=== PATIENT | female | born 1980 | race Hispanic/Latino ===

== ENCOUNTER 2016-12-24 07:40 | Outpatient (CLI) | payer MEDICAID ==
[2016-12-24] MEDS ORDERED: DOBUTamine 100 MG in D5W 92 ML IV SCH (09:00)
[2016-12-24 13:22] VITALS: BP 128/66
== END 2016-12-24 07:41 | disposition home or self-care (01) ==
LOC: CARD 07:40
PROVIDERS: ATTEND Internal Medicine
DX: R07.2 Precordial pain (principal)
CPT/HCPCS: 93017; 93320; 93325; 93350; J1250

== ENCOUNTER 2018-12-27 15:22 | Emergency (ER) | payer MEDICAID, SELFPAY | END 2018-12-27 18:55 | disposition left against medical advice (07) | LOC: ED 15:22 ==

== ENCOUNTER 2020-06-07 22:10 | Emergency (ER) | payer SELFPAY ==
[2020-06-08] MEDS ORDERED: ONDANSETRON 4 MG/2 ML INJ IM ONE (02:08)
[2020-06-08] MEDS ORDERED: fentaNYL 100 MCG/2 ML INJ IM ONE (02:08)
--- NOTE | 2020-06-08 02:14 | Emergency Department Report ---
HPI - General Chief Complaint: Extremity Injury, Lower Time Seen by Provider: 06/08/20 02:00 - HPI HPI: Room 45 The patient is a 39-year-old female present with a chief complaint of body pain. Patient states she awakened this morning with a burning pain in her lower back bilateral thighs and sides of her neck. Patient denies any preceding trauma. P atient states she is uncertain if she developed a fever. Patient states she did toss and turn while sleeping last night but does not recall sleeping in any awkward positions. Patient denies any previous episodes of the same. The patient gives her pain a score of 8/10 ED Past Medical Hx - Past Medical History Previous Medical History?: Yes Hx Arthritis: Yes (SHOULDER) Hx Headaches / Migraines: Yes (MIGRAINES) Hx Kidney Stones: Yes Hx Psychiatric Treatment: Yes (SOCIAL ANXIETY) Hx Asthma: Yes (mild, currently asymptomatic, albuterol PRN) Hx COPD: (denies) - Surgical History Past Surgical History?: Yes Hx Cholecystectomy: Yes Additional Surgical History: C section x2. LEFT THUMB SURGERY. KIDNEY STONE REMOVAL - Family History Family history: no significant - Social History Smoking Status: Current Every Day Smoker (1/3 pack/day) Substance Use Type: None (Denies illicit drug use) - Medications Home Medications: Home Medications Medication Instructions Recorded Confirmed Last Taken Type Cyclobenzaprine [Flexeril] 10 mg PO TID PRN #10 tablet 06/08/20 Unknown Rx HYDROcodone/APAP 5-325 [[place] 1 each PO Q6HR PRN #10 tablet 06/08/20 Unknown Rx 5/325] Ibuprofen [Motrin 800 MG tab] 800 mg PO Q8HR PRN #20 tablet 06/08/20 Unknown Rx ED Review of Systems ROS: Stated complaint: NECK,LOWER BACK,THIGH PAIN Other details as noted in HPI Constitutional: no symptoms reported Respiratory: no symptoms reported Endocrine: no symptoms reported Genitourinary: denies: dysuria Physical Exam - Physical Exam Vital Signs: Vital Signs 06/07/20 23:24 Temperature 99.6 F Pulse Rate 119 H Respiratory 18 Rate Blood Pressure 108/67 O2 Sat by Pulse 100 Oximetry Vital Signs 06/07/20 06/08/20 23:24 05:12 Temperature 99.6 F 99.4 F Pulse Rate 119 H 94 H Respiratory 18 16 Rate Blood Pressure 108/67 Blood Pressure 103/69 [Left] O2 Sat by Pulse 100 100 Oximetry Physical Exam: GENERAL: The patient is well-developed well-nourished female lying on stretcher appearing to be in mild discomfort. [] HEENT: Normocephalic. Atraumatic. Extraocular motions are intact. Patient has moist mucous membranes. NECK: Supple. No meningitic signs are noted. Trachea midline CHEST/LUNGS: Clear to auscultation. There is no respiratory distress noted. HEART/CARDIOVASCULAR: Regular. There is no tachycardia. There is no gallop rub or murmur. ABDOMEN: Abdomen is soft, nontender. Patient has normal bowel sounds. There is no abdominal distention. SKIN: There is no rash. There is no edema. There is no diaphoresis. NEURO: The patient is awake, alert, and oriented. The patient is cooperative. The patient has no focal neurologic deficits. The patient has normal speech MUSCULOSKELETAL: There is no evidence of acute injury. ED Course Vital Signs 06/07/20 23:24 Temperature 99.6 F Pulse Rate 119 H Respiratory 18 Rate Blood Pressure 108/67 O2 Sat by Pulse 100 Oximetry ED Medical Decision Making - Lab Data Result diagrams: 06/08/20 02:18 06/08/20 02:18 Laboratory Tests 06/08/20 06/08/20 06/08/20 02:18 02:18 02:18 WBC 4.8 RBC 4.08 Hgb 12.2 Hct 36.8 MCV 90 MCH 30 MCHC 33 RDW 13.4 Plt Count 172 Lymph % (Auto) 9.4 L [place] % (Auto) 10.0 H Eos % (Auto) 0.3 Baso % (Auto) 0.6 Lymph # 0.4 L [place] # 0.5 Eos # 0.0 Baso # 0.0 Seg Neutrophils % 79.7 H Seg Neutrophils # 3.8 Sodium 137 Potassium 3.8 Chloride 104.2 Carbon Dioxide 19 L Anion Gap 18 BUN 6 L Creatinine 0.9 Estimated GFR > 60 BUN/Creatinine Ratio 7 Glucose 86 Calcium 8.4 Magnesium 2.00 Total Creatine Kinase 54 HCG, Qual Negative Urine Color Urine Turbidity Urine pH Ur Specific [place] Urine Protein Urine Glucose (UA) Urine Ketones Urine Blood Urine Nitrite Urine Bilirubin Urine Urobilinogen Ur Leukocyte Esterase Urine WBC (Auto) Urine RBC (Auto) U Epithel Cells (Auto) Calcium Oxalate Crystal Urine Mucus 06/08/20 04:24 WBC RBC Hgb Hct MCV MCH MCHC RDW Plt Count Lymph % (Auto) [place] % (Auto) Eos % (Auto) Baso % (Auto) Lymph # [place] # Eos # Baso # Seg Neutrophils % Seg Neutrophils # Sodium Potassium Chloride Carbon Dioxide Anion Gap BUN Creatinine Estimated GFR BUN/Creatinine Ratio Glucose Calcium Magnesium Total Creatine Kinase HCG, Qual Urine Color Yellow Urine Turbidity Slightly-cloudy Urine pH 5.0 Ur Specific [place] 1.027 Urine Protein 30 mg/dl Urine Glucose (UA) Neg Urine Ketones Tr Urine Blood Lg Urine Nitrite Neg Urine Bilirubin Neg Urine Urobilinogen < 2.0 Ur Leukocyte Esterase Neg Urine WBC (Auto) 2.0 Urine RBC (Auto) 11.0 U Epithel Cells (Auto) 7.0 Calcium Oxalate Crystal 1+ Urine Mucus Few - Differential Diagnosis Myalgias, UTI, electrolyte imbalance, rhabdomyolysis, lupus Critical care attestation.: If time is entered above; I have spent that time in minutes in the direct care of this critically ill patient, excluding procedure time. ED Disposition Clinical Impression: Low back pain, Myalgia, Neck pain Disposition: TO HOME OR SELFCARE Is pt being admited?: No Does the pt Need Aspirin: No Condition: Stable Additional Instructions: Return to the emergency department should you develop worsening symptoms, inability to tolerate food or liquids, high fever or any other concerns Prescriptions: Cyclobenzaprine [Flexeril] 10 mg PO TID PRN #10 tablet PRN Reason: Muscle Spasm Ibuprofen [Motrin 800 MG tab] 800 mg PO Q8HR PRN #20 tablet PRN Reason: Pain, Moderate (4-6) HYDROcodone/APAP 5-325 [[place] 5/325] 1 each PO Q6HR PRN #10 tablet PRN Reason: Pain Referrals: PRIMARY CARE, [Primary Care Provider] - 3-5 Days VINCENT CROWE MD [Staff Physician] - 3-5 Days (Dr. Crowe is a primary physician. Please follow-up with him if you do not already have a primary ph ysician) CASTILLO SHAW MD [Staff Physician] - 3-5 Days (Dr. Shaw is a bone & muscle specialist (orthopedic surgeon). Please follow-up with him for further evaluation) Time of Disposition: 05:16
[2020-06-08 02:50] LABS: Basophils % (Auto) 0.6 % (0.0-1.8); Eosinophils % (Auto) 0.3 % (0.0-4.3); Hematocrit 36.8 % (30.3-42.9); Hemoglobin 12.2 gm/dl (10.1-14.3); Lymphocytes # (Auto) 0.4 K/mm3 (1.2-5.4); Lymphocytes % (Auto) 9.4 % (13.4-35.0); Mean Corpuscular HGB Conc 33 % (30-34); Mean Corpuscular Volume 90 fl (79-97); Monocytes # (Auto) 0.5 K/mm3 (0.0-0.8); Platelet Count 172 K/mm3 (140-440); Red Blood Count 4.08 M/mm3 (3.65-5.03); Red Cell Distribution Width 13.4 % (13.2-15.2)
[2020-06-08 03:09] LABS: BUN/Creatinine Ratio 7; Blood Urea Nitrogen 6 mg/dL (7-17); Calcium 8.4 mg/dL (8.4-10.2); Hemolysis Index 35
[2020-06-08 04:43] LABS: Bilirubin,Urine NEG (Negative); Blood,Urine LG (Negative); Calcium Oxalate Crystals,Urine 1+; Color,Urine Yellow (Yellow); Mucus,Urine FEW /HPF; Urobilinogen,Urine < 2.0 mg/dL (<2.0)
[2020-06-08 05:13] VITALS: BP 103/69
== END 2020-06-08 05:25 | disposition home or self-care (01) ==
LOC: ED 22:10
DX: M54.5 Low back pain (principal); M54.2 Cervicalgia; M79.18 Myalgia, other site; M13.88 Other specified arthritis, other site; J45.909 Unspecified asthma, uncomplicated; G43.909 Migraine, unspecified, not intractable, without status migrainosus; F41.9 Anxiety disorder, unspecified; F17.210 Nicotine dependence, cigarettes, uncomplicated; Z90.49 Acquired absence of other specified parts of digestive tract; Z79.899 Other long term (current) drug therapy; Z98.890 Other specified postprocedural states; Z88.6 Allergy status to analgesic agent
CPT/HCPCS: 36415; 80048; 81001; 82550; 83735; 84703; 85025; 96372; 99283; J2405; J3010

== ENCOUNTER 2020-11-06 11:58 | Emergency (ER) | payer OTHER ==
[2020-11-06 12:32] VITALS: BP 127/60
--- NOTE | 2020-11-06 12:33 | Emergency Department Report ---
Blank Doc - Documentation Documentation: 40-year-old female that presents with SOB, cough, body aches. Patient is 17 w eeks . This initial assessment/diagnostic orders/clinical plan/treatment(s) is/are subject to change based on patient's health status, clinical progression and re- assessment by fellow clinical providers in the ED. Further treatment and workup at subsequent clinical providers discretion. Patient/guardians urged not to elope from the ED as their condition may be serious if not clinically assessed and managed. Initial orders include: 1- Patient sent to [facility] for further evaluation and treatment 2- CXR Patient was given information about risk and benefits with and chest xray and patient signed wavier form and stated to proceed.
--- NOTE | 2020-11-06 13:14 | XRay Report ---
CHEST 1 VIEW INDICATION: cough/sob. COMPARISON: None FINDINGS: Support devices: None. Heart: Within normal limits. Lungs/Pleura: No acute air space or interstitial disease. Additional findings: None. IMPRESSION: No acute findings. Signer Name: Harry Pitt Jr, MD Signed: 11/06/2020 1:10 PM Workstation Name: [id number]
--- NOTE | 2020-11-06 13:57 | Emergency Department Report ---
ED Recheck HPI - General Chief Complaint: Upper Respiratory Infection Stated Complaint: 17 WEEKS /COUGH/CONGESTION/SOB Time Seen by Provider: 11/06/20 12:31 Source: patient Mode of arrival: Ambulatory Limitations: No Limitations - History of Present Illness Initial Comments: Patient is a 40-year-old female that comes to the emergency room today at the suggestion of her WE[employer]ER [employer]OM for a rapid Covid test. The patient has had some cough and shortness of breath for couple days and they were concerned that she had Covid so they would not see her until she had a rapid screen. Per the [facility] in triage the patient had a chest x-ray that was negative for any infiltrate consolidation or pneumonia suggestive of Covid patient's heart rate is 103 at 17 weeks gestation she has no fever and no hypotension her blood pressure is 127/60 This is the patient's third she has a 20-year-old a 10-year-old and now this baby. Her last menstrual cycle was 05/28/2020. She has no vaginal bleeding or discharge. No abdominal pain or back pain. I explained to the patient that we do not do rapid screens and am discharging her with appropriate follow-up for such rapid screens -: Gradual Symptoms Since Prior Visit: no new symptoms Context: planned re-check - Related Data Previous Rx's Medication Instructions Recorded Last Taken Type Cyclobenzaprine [Flexeril] 10 mg PO TID PRN #10 tablet 06/08/20 Unknown Rx HYDROcodone/APAP 5-325 [[place] 1 each PO Q6HR PRN #10 tablet 06/08/20 Unknown Rx 5/325] Ibuprofen [Motrin 800 MG tab] 800 mg PO Q8HR PRN #20 tablet 06/08/20 Unknown Rx Allergies Allergy/AdvReac Type Severity Reaction Status Date / Time sumatriptan [From Imitrex] Allergy Angioedema Verified 11/06/20 12:29 sumatriptan succinate Allergy Angioedema Verified 11/06/20 12:29 [From Imitrex] ED Review of Systems ROS: Stated complaint: 17 WEEKS /COUGH/CONGESTION/SOB Other details as noted in HPI Comment: All other systems reviewed and negative ED Past Medical Hx - Past Medical History Previous Medical History?: Yes Hx Arthritis: Yes (SHOULDER) Hx Headaches / Migraines: Yes (MIGRAINES) Hx Kidney Stones: Yes Hx Psychiatric Treatment: Yes (SOCIAL ANXIETY) Hx Asthma: Yes (mild, currently asymptomatic, albuterol PRN) Hx COPD: (denies) - Surgical History Past Surgical History?: Yes Hx Pacemaker: No Hx Internal Defibrillator: No Hx Cholecystectomy: Yes Additional Surgical History: C section x2. LEFT THUMB SURGERY. KIDNEY STONE REMOVAL - Family History Family history: no significant - Social History Smoking Status: Current Every Day Smoker (1/3 pack/day) Substance Use Type: None (Denies illicit drug use) - Medications Home Medications: Home Medications Medication Instructions Recorded Confirmed Last Taken Type Cyclobenzaprine [Flexeril] 10 mg PO TID PRN #10 tablet 06/08/20 Unknown Rx HYDROcodone/APAP 5-325 [[place] 1 each PO Q6HR PRN #10 tablet 06/08/20 Unknown Rx 5/325] Ibuprofen [Motrin 800 MG tab] 800 mg PO Q8HR PRN #20 tablet 06/08/20 Unknown Rx ED Physical Exam - General Limitations: No Limitations General appearance: alert, in no apparent distress - Head Head exam: Present: atraumatic, normocephalic - Eye Eye exam: Present: normal appearance - ENT ENT exam: Present: mucous membranes moist - Neck Neck exam: Present: normal inspection - Respiratory Respiratory exam: Present: normal lung sounds bilaterally. Absent: respiratory distress - Cardiovascular Cardiovascular Exam: Present: regular rate, normal rhythm. Absent: systolic murmur, diastolic murmur, rubs, gallop - GI/Abdominal GI/Abdominal exam: Present: soft, normal bowel sounds - Extremities Exam Extremities exam: Present: normal inspection - Back Exam Back exam: Present: normal inspection - Neurological Exam Neurological exam: Present: alert, oriented X3 - Psychiatric Psychiatric exam: Present: normal affect, normal mood - Skin Skin exam: Present: warm, dry, intact, normal color. Absent: rash ED Course Vital Signs 11/06/20 12:31 Temperature 98.0 F Pulse Rate 103 H Respiratory 20 Rate Blood Pressure 127/60 O2 Sat by Pulse 98 Oximetry ED Recheck MDM - Core Measures Measure Exclusions: not indicated - Medical Decision Making Patient is [id number] on exam. She has no fever. She has no hypoxia. She is ambulatory without shortness of breath. Patient denies any vaginal bleeding discharge or back pain. She denies any abdominal pain. She denies any contractions. Patient sent here for rapid test so that her WE[employer] will see her. Patient has no JVD on exam. She has no peripheral edema. There is nothing in her HPI that suggest that she would have any peripartum cardiomyopathy or other volume overload issues. Patient being discharged home with appropriate discharge instructions. She has been instructed to treat her symptoms with safe [id number] medications for . She does not need antibiotics. She has been encouraged to use Tylenol for any aches and pains. Patient verbalizes understanding of discharge plan of care Vital Signs 11/06/20 12:31 Temperature 98.0 F Pulse Rate 103 H Respiratory 20 Rate Blood Pressure 127/60 O2 Sat by Pulse 98 Oximetry Patient requesting a work note on discharge Critical care attestation.: If time is entered above; I have spent that time in minutes in the direct care of this critically ill patient, excluding procedure time. ED Disposition Clinical Impression: , Cough Disposition: DC-01 TO HOME OR SELFCARE Is pt being admited?: No Does the pt Need Aspirin: No Condition: Stable Instructions: Cough, Adult Additional Instructions: FOLLOW UP WITH URGENT CARE THAT DOES RAPID COVID TESTS [facility] ALL OVER [place] DOES THEM OTC MEDS FOR YOUR SYMPTOMS SEE YOUR OBGYN RAUL FOR YOUR OB NEEDS Referrals: ROB AHMADI MD [Staff Physician] - 3-5 Days Forms: Work/School Release Form(ED) Time of Disposition: 13:57
== END 2020-11-06 14:04 | disposition home or self-care (01) ==
LOC: ED 11:58
DX: O26.892 Other specified pregnancy related conditions, second trimester (principal); R05 Cough; R06.02 Shortness of breath; M19.91 Primary osteoarthritis, unspecified site; G43.909 Migraine, unspecified, not intractable, without status migrainosus; J45.909 Unspecified asthma, uncomplicated; F17.200 Nicotine dependence, unspecified, uncomplicated; Z90.49 Acquired absence of other specified parts of digestive tract; Z98.890 Other specified postprocedural states; Z3A.17 17 weeks gestation of pregnancy; Z79.1 Long term (current) use of non-steroidal anti-inflammatories (NSAID); Z79.899 Other long term (current) drug therapy; Z88.8 Allergy status to other drugs, medicaments and biological substances
CPT/HCPCS: 71045

== ENCOUNTER 2021-02-08 15:30 | Outpatient (CLI) | payer OTHER ==
[2021-02-08 15:53] VITALS: BP 104/58
[2021-02-08] MEDS: ALBUTEROL 2.5 MG/3 ML NEBU IH PRN ×2 (16:27→17:22)
[2021-02-08] MEDS ORDERED: guaiFENesin DM 200/20 MG ORAL LIQD 10 ML PO PRN (17:18)
--- NOTE | 2021-02-08 18:21 | XRay Report ---
CHEST 1 VIEW INDICATION: wheezing COMPARISON: 11/06/2020 FINDINGS: SUPPORT DEVICES: None. HEART / MEDIASTINUM: No significant abnormality. LUNGS / PLEURA: No significant pulmonary or pleural abnormality. No pneumothorax. ADDITIONAL FINDINGS: IMPRESSION: 1. No acute cardiopulmonary disease Signer Name: Enrique Quarles MD Signed: 02/08/2021 6:17 PM Workstation Name: [id number]
== END 2021-02-08 19:03 | disposition home or self-care (01) ==
LOC: TRG 15:30 → APU 15:31 → TRG 19:03
PROVIDERS: ATTEND Obstetrics & Gynecology
DX: O26.893 Other specified pregnancy related conditions, third trimester (principal); R06.2 Wheezing; R05 Cough; Z3A.31 31 weeks gestation of pregnancy
CPT/HCPCS: 71045; 94640; A9270

== ENCOUNTER 2021-02-11 16:51 | Outpatient (CLI) | payer OTHER ==
[2021-02-11 17:21] VITALS: BP 116/73
[2021-02-11] MEDS ORDERED: LACTATED RINGERS 500 ML IV ONE (17:52)
[2021-02-11] MEDS ORDERED: ALBUTEROL 2.5 MG/3 ML NEBU IH PRN (18:05)
== END 2021-02-11 19:31 | disposition home or self-care (01) ==
LOC: TRG 16:51 → APU 16:51 → TRG 19:31
PROVIDERS: ATTEND Obstetrics & Gynecology
DX: O26.893 Other specified pregnancy related conditions, third trimester (principal); R05 Cough; Z3A.31 31 weeks gestation of pregnancy
CPT/HCPCS: 59025; 94640; A9270

== ENCOUNTER 2021-02-26 07:48 | Outpatient (CLI) | payer OTHER ==
--- NOTE | 2021-02-26 08:39 | Event Note ---
ED Screening Note Date of service: 02/26/21 Time: 08:37 ED Screening Note: 40-year-old female who is currently 33 weeks presents to the ER today complaining of right sided headache. Onset a couple days ago. She states that has been constant, with associated right-sided facial swelling, and neck pain She has a history of migraines but she states that this does not feel like a migraine. She states that she has had a issue with a migraine for "a while". She is unable to describe any modifying factors She denies any associated nausea/vomiting, fever, chills, vision changes, speech changes or any focal deficits She denies head injury She has been taking Tylenol without relief. Denies any complaints She denies any issues with eclampsia/preeclampsia or gestational hypertension during this She is G3, P2 Ab0 This initial assessment/diagnostic orders/clinical plan/treatment(s) is/are subject to change based on patients health status, clinical progression and re- assessment by fellow clinical providers in the ED. Further treatment and workup at subsequent clinical providers discretion. Patient/guardian urged not to elope from the ED as their condition may be serious if not clinically assessed and managed. Initial orders include: CBC, CMP, urinalysis
[2021-02-26 09:11] LABS: Basophils # (Auto) 0.1 K/mm3 (0.0-0.1); Basophils % (Auto) 0.5 % (0.0-1.8); Eosinophils # (Auto) 0.1 K/mm3 (0.0-0.4); Eosinophils % (Auto) 0.7 % (0.0-4.3); Hematocrit 27.7 % (30.3-42.9); Hemoglobin 9.4 gm/dl (10.1-14.3); Lymphocytes # (Auto) 1.6 K/mm3 (1.2-5.4); Lymphocytes % (Auto) 11.6 % (13.4-35.0); Mean Corpuscular HGB Conc 34 % (30-34); Mean Corpuscular Volume 93 fl (79-97); Monocytes # (Auto) 0.6 K/mm3 (0.0-0.8); Platelet Count 218 K/mm3 (140-440); Red Blood Count 2.98 M/mm3 (3.65-5.03)
[2021-02-26 09:27] LABS: Alanine Aminotransferase 9 units/L (7-56); Blood Urea Nitrogen 6 mg/dL (7-17); Calcium 8.2 mg/dL (8.4-10.2); Hemolysis Index 16
[2021-02-26 09:29] LABS: BUN/Creatinine Ratio 9
[2021-02-26] MEDS ORDERED: LACTATED RINGERS 1,000 ML IV SCH (11:45)
[2021-02-26 12:13] LABS: Bacteria,Urine 2+ /HPF (Negative); Bilirubin,Urine NEG (Negative); Blood,Urine NEG (Negative); Color,Urine Yellow (Yellow); Mucus,Urine FEW /HPF; Urobilinogen,Urine < 2.0 mg/dL (<2.0)
[2021-02-26 12:14] LABS: Protein,Urine >500 mg/dL (Negative)
[2021-02-26] MEDS ORDERED: LACTATED RINGERS 500 ML IV ONE (13:00)
[2021-02-26] MEDS ORDERED: ACETAMINOPHEN 500 MG TAB PO ONE (13:00)
[2021-02-26 13:37] VITALS: BP 138/86
[2021-02-26 13:55] LABS: Amphetamine Screen,Urine Negative; Benzodiazepines Screen,Urine Negative; Cannabinoid Screen,Urine Negative; Cocaine Screen,Urine Negative; Methadone Screen,Urine Negative; Opiate Screen,Urine Negative
== END 2021-02-26 13:55 | disposition home or self-care (01) ==
LOC: ED 07:48 → TRG 07:48 → APU 11:29 → EDSTATUS 11:29 → TRG 13:55
PROVIDERS: ATTEND Obstetrics & Gynecology
DX: O09.893 Supervision of other high risk pregnancies, third trimester (principal); Z3A.33 33 weeks gestation of pregnancy
CPT/HCPCS: 36415; 59025; 80053; 80307; 81001; 83735; 85025; Q0177

== ENCOUNTER 2021-02-26 22:48 | Emergency (ER) | payer OTHER ==
[2021-02-26] MEDS ORDERED: diphenhydrAMINE 25 MG CAP PO ONE (22:56)
[2021-02-26] MEDS ORDERED: predniSONE 20 MG TAB PO ONE (22:56)
--- NOTE | 2021-02-26 23:02 | Event Note ---
ED Screening Note Date of service: 02/26/21 Time: 23:01 ED Screening Note: pt is a 40 y/o w/f who presents for left side facial weakness and facial droop x 2 weeks with right sided headache and pressure. pt states hx of recurrent sinusitis. pt is 33 weeks , denies htn, no gest dm, states she took visteril at home prior to coming to [facility]. This initial assessment/diagnostic orders/clinical plan/treatment(s) is/are subject to change based on patients health status, clinical progression and re- assessment by fellow clinical providers in the ED. Further treatment and workup at subsequent clinical providers discretion. Patient/guardian urged not to elope from the ED as their condition may be serious if not clinically assessed and managed. Initial orders include: ct head w/o con, benadryl, prednisone, cmp, cbc.
--- NOTE | 2021-02-26 23:28 | Emergency Department Report ---
HPI - General Chief Complaint: Neuro Symptoms/Deficit Time Seen by Provider: 02/26/21 23:12 - HPI HPI: Room 3 The patient is a 40-year-old female present with a chief complaint of right facial pain and swelling. The patient states over the past week she has had nasal congestion has been using [id number] sinus medication. Patient states this morning she had a severe right-sided headache and mild swelling to the right face prompting her to come to the emergency department. Patient states she was seen given Vistaril and eventually discharged. Patient states she went home and at approximate 19: 00 swelling had increased dramatically the right side of her face. Patient admits to having poor dentition but states there is no gingival pain. Patient denies trauma or history of fever. Patient states her headache was more severe this morning but has improved although she still gives it a score of 5/10. The patient is 38 weeks and was sent to labor and delivery prior to coming to the ED. ED Past Medical Hx - Past Medical History Hx Arthritis: Yes (SHOULDER) Hx Headaches / Migraines: Yes (MIGRAINES) Hx Kidney Stones: Yes Hx Psychiatric Treatment: Yes (SOCIAL ANXIETY) Hx Asthma: Yes (last attack last week) Hx COPD: (denies) - Surgical History Past Surgical History?: Yes Hx Cholecystectomy: Yes Additional Surgical History: C section x2. LEFT THUMB SURGERY. KIDNEY STONE REMOVAL - Family History Family history: no significant - Social History Smoking Status: Current Every Day Smoker (1/3 pack/day) Substance Use Type: None (Denies illicit drug use) - Medications Home Medications: Home Medications Medication Instructions Recorded Confirmed Last Taken Type Albuterol Mdi (or & Nicu Only) 2 puff IN Q4HR PRN 02/11/21 02/11/21 02/11/21 16:30 History Amoxicillin CAP 1 tab PO DAILY 02/11/21 02/11/21 02/11/21 15:30 History Iron 1 tab PO DAILY 02/11/21 02/11/21 02/11/21 06:30 History Methylprednisolone 4 mg PO DAILY 02/11/21 02/11/21 02/11/21 15:30 History guaiFENesin [Robitussin] 200 mg PO Q4HR PRN 02/11/21 02/11/21 02/11/21 15:30 History Acetaminophen/Codeine [Tylenol 1 - 2 tab PO Q6H PRN #10 tab 02/27/21 Unknown Rx /Codeine # 3 tab] Amoxicillin/Potassium Clav 1 each PO BID #20 tablet 02/27/21 Unknown Rx [Augmentin 875-125 Tablet] Prednisone [predniSONE 10 mg 10 mg PO .TAPER #1 tab.ds.pk 02/27/21 Unknown Rx (6-Day Pack, 21 Tabs)] ED Review of Systems ROS: Stated complaint: POSS STROKE Other details as noted in HPI Constitutional: denies: fever Eyes: vision change ENT: congestion Respiratory: no symptoms reported Cardiovascular: denies: chest pain Endocrine: no symptoms reported Gastrointestinal: denies: abdominal pain Genitourinary: denies: dysuria Musculoskeletal: denies: back pain Neurological: headache Physical Exam - Physical Exam Vital Signs: Vital Signs 02/26/21 22:52 Temperature 98.8 F Pulse Rate 109 H Respiratory 18 Rate Blood Pressure 128/69 [Right] O2 Sat by Pulse 98 Oximetry Physical Exam: GENERAL: The patient is well-developed well-nourished female lying on stretcher not appearing to be in acute distress. [] HEENT: Normocephalic. Atraumatic. Extraocular motions are intact. Poor dentition. There is moderate swelling with tenderness to the right face greatest over the right maxillary sinus NECK: Supple. No meningitic signs are noted. CHEST/LUNGS: Clear to auscultation. There is no respiratory distress noted. HEART/CARDIOVASCULAR: Regular. There is no tachycardia. There is no gallop rub or murmur. ABDOMEN: Abdomen is soft, nontender. Patient has normal bowel sounds. Patient is gravid SKIN: There is no rash. There is cellulitis appreciated on the face. There is no diaphoresis. NEURO: The patient is awake, alert, and oriented. The patient is cooperative. The patient has no focal neurologic deficits. The patient has normal speech. Cranial nerves II through XII grossly intact MUSCULOSKELETAL: There is no evidence of acute injury. ED Course Vital Signs 02/26/21 22:52 Temperature 98.8 F Pulse Rate 109 H Respiratory 18 Rate Blood Pressure 128/69 [Right] O2 Sat by Pulse 98 Oximetry - Consultations Consultation #1: 02/26/21 23:[address] Guerrero to perform CT scans and administer steroids. May give Tylenol #3 if needed ED Medical Decision Making - Lab Data Result diagrams: 02/26/21 23:01 02/26/21 23:01 Laboratory Tests 02/26/21 02/26/21 23:01 23:01 WBC 14.4 H RBC 2.95 L Hgb 9.5 L Hct 27.1 L MCV 92 MCH 32 MCHC 35 H RDW 13.8 Plt Count 238 Lymph % (Auto) 15.4 [place] % (Auto) 7.9 H Eos % (Auto) 0.7 Baso % (Auto) 0.3 Lymph # (Auto) 2.2 [place] # (Auto) 1.1 H Eos # (Auto) 0.1 Baso # (Auto) 0.0 Seg Neutrophils % 75.7 H Seg Neutrophils # 10.9 H Sodium 139 Potassium 3.4 L Chloride 107.8 H Carbon Dioxide 20 L Anion Gap 15 BUN 6 L Creatinine 0.6 Estimated GFR > 60 BUN/Creatinine Ratio 10 Glucose 85 Calcium 8.2 L Total Bilirubin < 0.20 AST 11 ALT 9 Alkaline Phosphatase 83 Total Protein 5.4 L Albumin 3.2 L Albumin/Globulin Ratio 1.5 - Radiology Data Radiology results: report reviewed (CT head, CT facial bone), image reviewed (CT head, CT facial bone) [facility] [address] [place] [address] Cat Scan Report Signed Patient: MYESHA TRUONG MR#: [id number] : 1980 Acct:[id number] Age/Sex: 40 / F ADM Date: 02/26/21 Loc: ED Attending Dr: Ordering Physician: JUAN DIEGO HARMAN NP Date of Service: 02/26/21 Procedure(s): CT head/brain wo con Accession Number(s): [id number] cc: JUAN DIEGO HARMAN NP CT HEAD WITHOUT CONTRAST INDICATION / CLINICAL INFORMATION: Headache, RIGHT sided facial swelling and droop.. TECHNIQUE: All CT scans at this location are performed using CT dose reduction for ALARA by means of automated exposure control. COMPARISON: None available. FINDINGS: HEMORRHAGE: None. EXTRA-AXIAL SPACES: Normal in size and morphology for the patient's age. VENTRICULAR SYSTEM: Normal in size and morphology for the patient's age. CEREBRAL PARENCHYMA: No significant abnormality. No acute territorial infarct. MIDLINE SHIFT / HERNIATION: None. CEREBELLUM / BRAINSTEM: No significant abnormality. ORBITS: Normal as visualized. SOFT TISSUES: No significant abnormality. SKULL: No significant abnormality. PARANASAL SINUSES / MASTOID AIR CELLS: Normal as visualized. ADDITIONAL FINDINGS: None. IMPRESSION: 1. No acute intracranial abnormality. Signer Name: Rober Arora MD Signed: 02/26/2021 11:51 PM Workstation Name: [id number] Transcribed By: Dictated By: Rober Arora MD Electronically Authenticated By: Rober Arora MD Signed Date/Time: 02/26/212350 DD/ 48 TD/TT: Print Cancel [facility] [address] [place] [address] Cat Scan Report Signed Patient: MYESHA TRUONG MR#: [id number] : 1980 Acct:[id number] Age/Sex: 40 / F ADM Date: 02/26/21 Loc: ED Attending Dr: Ordering Physician: MOISES ALEJANDRO MD Date of Service: 02/26/21 Procedure(s): CT facial bones wo con Accession Number(s): [id number] cc: MOISES ALEJANDRO MD CT MAXILLOFACIAL WITHOUT CONTRAST INDICATION / CLINICAL INFORMATION: RIGHT sided facial swelling. TECHNIQUE: All CT scans at this location are performed using CT dose reduction for ALARA by means of automated exposure control. COMPARISON: None available. FINDINGS: FACIAL BONES: No fracture or other significant abnormality. PARANASAL SINUSES: No significant abnormality. ORBITS: No significant abnormality. SOFT TISSUES: There is mild stranding in the subcutaneous fat in the right face. No abscess is seen. VISUALIZED INTRACRANIAL STRUCTURES: No significant abnormality. ADDITIONAL FINDINGS: None. IMPRESSION: 1. There is mild stranding in the subcutaneous fat in the right face characteristic of inflammation. There is no abscess. Signer Name: Rober Arora MD Signed: 02/26/2021 11:55 PM Workstation Name: [id number] Transcribed By: Dictated By: Rober Arora MD Electronically Authenticated By: Rober Arora MD Signed Date/Time: 02/26/212354 DD/ 51 TD/TT: Print Cancel - Differential Diagnosis Dental abscess, sinusitis, intracranial mass, allergic reaction, Critical care attestation.: If time is entered above; I have spent that time in minutes in the direct care of this critically ill patient, excluding procedure time. ED Disposition Clinical Impression: Dental caries, Sinus congestion, Right facial swelling Disposition: TO HOME OR SELFCARE Is pt being admited?: No Does the pt Need Aspirin: No Condition: Stable Additional Instructions: Return to the emergency department should you develop worsening symptoms, inability to tolerate food or liquids, high fever or any other concerns Prescriptions: Amoxicillin/Potassium Clav [Augmentin 875-125 Tablet] 1 each PO BID #20 tablet Prednisone [predniSONE 10 mg (6-Day Pack, 21 Tabs)] 10 mg PO .TAPER #1 tab.ds.pk Acetaminophen/Codeine [Tylenol /Codeine # 3 tab] 1 - 2 tab PO Q6H PRN #10 tab PRN Reason: Pain, Moderate (4-6) Referrals: PRIMARY CARE, [Primary Care Provider] - 3-5 Days KENDRICK HECK MD [Staff Physician] - 3-5 Days Time of Disposition: 02:54
[2021-02-26 23:46] LABS: Alanine Aminotransferase 9 units/L (7-56); Albumin 3.2 g/dL (3.9-5); Blood Urea Nitrogen 6 mg/dL (7-17); Calcium 8.2 mg/dL (8.4-10.2); Hemolysis Index 2
[2021-02-26 23:48] LABS: BUN/Creatinine Ratio 10; Basophils % (Auto) 0.3 % (0.0-1.8); Eosinophils # (Auto) 0.1 K/mm3 (0.0-0.4); Eosinophils % (Auto) 0.7 % (0.0-4.3); Hematocrit 27.1 % (30.3-42.9); Hemoglobin 9.5 gm/dl (10.1-14.3); Lymphocytes # (Auto) 2.2 K/mm3 (1.2-5.4); Lymphocytes % (Auto) 15.4 % (13.4-35.0); Mean Corpuscular HGB Conc 35 % (30-34); Mean Corpuscular Volume 92 fl (79-97); Monocytes # (Auto) 1.1 K/mm3 (0.0-0.8); Monocytes % (Auto) 7.9 % (0.0-7.3); Platelet Count 238 K/mm3 (140-440); Red Blood Count 2.95 M/mm3 (3.65-5.03); Red Cell Distribution Width 13.8 % (13.2-15.2)
--- NOTE | 2021-02-26 23:56 | Cat Scan Report ---
CT HEAD WITHOUT CONTRAST INDICATION / CLINICAL INFORMATION: Headache, RIGHT sided facial swelling and droop.. TECHNIQUE: All CT scans at this location are performed using CT dose reduction for ALARA by means of automated exposure control. COMPARISON: None available. FINDINGS: HEMORRHAGE: None. EXTRA-AXIAL SPACES: Normal in size and morphology for the patient's age. VENTRICULAR SYSTEM: Normal in size and morphology for the patient's age. CEREBRAL PARENCHYMA: No significant abnormality. No acute territorial infarct. MIDLINE SHIFT / HERNIATION: None. CEREBELLUM / BRAINSTEM: No significant abnormality. ORBITS: Normal as visualized. SOFT TISSUES: No significant abnormality. SKULL: No significant abnormality. PARANASAL SINUSES / MASTOID AIR CELLS: Normal as visualized. ADDITIONAL FINDINGS: None. IMPRESSION: 1. No acute intracranial abnormality. Signer Name: Rober Arora MD Signed: 02/26/2021 11:51 PM Workstation Name: [id number]
--- NOTE | 2021-02-26 23:59 | Cat Scan Report ---
CT MAXILLOFACIAL WITHOUT CONTRAST INDICATION / CLINICAL INFORMATION: RIGHT sided facial swelling. TECHNIQUE: All CT scans at this location are performed using CT dose reduction for ALARA by means of automated exposure control. COMPARISON: None available. FINDINGS: FACIAL BONES: No fracture or other significant abnormality. PARANASAL SINUSES: No significant abnormality. ORBITS: No significant abnormality. SOFT TISSUES: There is mild stranding in the subcutaneous fat in the right face. No abscess is seen. VISUALIZED INTRACRANIAL STRUCTURES: No significant abnormality. ADDITIONAL FINDINGS: None. IMPRESSION: 1. There is mild stranding in the subcutaneous fat in the right face characteristic of inflammation. There is no abscess. Signer Name: Rober Arora MD Signed: 02/26/2021 11:55 PM Workstation Name: [id number]
[2021-02-27] MEDS ORDERED: cefTRIAXone/NS 1 GM/50 ML 1 GM/50 ML BAG IV ONE (00:03)
[2021-02-27] MEDS ORDERED: SODIUM CHLORIDE 0.9% 1000 ML 1,000 ML IV ONE (00:04)
[2021-02-27 02:55] VITALS: BP 110/63
== END 2021-02-27 03:17 | disposition home or self-care (01) ==
LOC: ED 22:48
DX: K02.9 Dental caries, unspecified (principal); R09.81 Nasal congestion; R22.0 Localized swelling, mass and lump, head; M19.91 Primary osteoarthritis, unspecified site; G43.909 Migraine, unspecified, not intractable, without status migrainosus; F41.9 Anxiety disorder, unspecified; J45.909 Unspecified asthma, uncomplicated; Z90.49 Acquired absence of other specified parts of digestive tract; Z98.890 Other specified postprocedural states; F17.200 Nicotine dependence, unspecified, uncomplicated; Z79.2 Long term (current) use of antibiotics; Z79.899 Other long term (current) drug therapy; Z88.8 Allergy status to other drugs, medicaments and biological substances
CPT/HCPCS: 36415; 70450; 70486; 80053; 85025; 96365; 99284; J0696; J7030; J7512

== ENCOUNTER 2021-03-04 10:16 | Inpatient (IN) | payer OTHER ==
[2021-03-04] MEDS ORDERED: LACTATED RINGERS 1,000 ML IV SCH (10:30)
--- NOTE | 2021-03-04 10:38 | History and Physical Report ---
History of Present Illness Date of examination: 03/04/21 (pt sent in per [facility]) Date of admission: 03/04/21 10:16 Chief complaint: Worsening s/sx of PreE Total Protein 2999 History of present illness: LMP: 04/10/2021 Gestational Age: weeks Past History : 3 Term Births: 2 Premature Births: 0 Living Children: 2 Para: 2 Mult. Births: 0 Prev : 0 Aborta: 0 Elect. Ab: 0 Spont. Ab: 0 Ectopics: 0 # 1 Delivery date: 10/28/1999 Weeks Gestation: term labor: no Delivery type: Anesthesia type: spinal Delivery location: [facility] Sex: Male weight: 7-6 Comments: For distres # 2 Delivery date: 07/14/2009 Weeks Gestation: term labor: no Delivery type: Anesthesia type: epidural Delivery location: [facility] Infant Sex: Male weight: 6-7 Past Medical History: Reviewed history and no changes required: Had heart attack in 2018 Irregular heart beat on verapamil- last took 1 year ago. 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 Kidney stones. Had MRSA Past Surgical History: Reviewed history and no changes required: X 2 Past Medical History Anesthesia Complications: negative Anemia: negative Autoimmune Disorder: negative Bleeding Disorder: negative Blood Transfusions: negative Breast Disease: negative Diabetes: negative Heart Disease: positive, Heart attack in 2018, irregular heart beat. Hypertension: negative Hepatitis/Liver Disease: negative Kidney Disease/UTI: negative Neurologic/Epilepsy/Migraines: negative Phlebitis/Varicosities: negative Psychiatric: negative Pulmonary Disease/Asthma: negative Thyroid Disease: negative Hospitalizations: negative Surgery (Non-black top roller): X 2 Abnormal PAP: negative AUDREY Exposure: negative Infertility: negative Uterine Anomaly: negative Uterine Surgery (not C/S): negative Other Gynecologic Problems: negative Medical History Comments: Irregular heart beat, heart attack in 2018 Infection History Hx of STD: none HIV Risk Eval: low risk Hepatitis B Risk Eval: low risk Personal hx. of genital herpes: no Partner hx. of genital herpes: no Rash, Viral, or Febrile illness since last LMP? no Varicella/Chicken Pox Status: Previous Disease TB Risk: no Genetic History ADVANCED MATERNAL AGE Congenital Heart Defect: Mom: no Dad: no Chava Disease: Mom: no Dad: no Thalassemia Mom: no Dad: no Neural Tube Defect Mom: no Dad: no Down's Syndrome Mom: no Dad: no Chester-Sachs Mom: no Dad: no Sickle Cell Disease/Trait Mom: no Dad: no Hemophilia Mom: no Dad: no Muscular Dystrophy Mom: no Dad: no Cystic Fibrosis Mom: no Dad: no [place] Chorea Mom: no Dad: no Mental Retardation Mom: no Dad: no Fragile X Mom: no Dad: no Other Genetic/Chromosomal Disorder Mom: no Dad: no Child w/other defect Mom: no Dad: no Enviromental Exposures Enviromental Exposures Reviewed Xray Exposure: no Medication, drug, or alcohol use since LMP: no Chemical/Other Exposure: no Exposure to Cat Liter: no Hx of Parvovirus (Fifth Disease): no Occupational Exposure to Children: none Active Medications: ONDANSETRON 8 MG ORAL TABLET DISINTEGRATING (ONDANSETRON) 1 po q12hrs prn Current Allergies: * IMITREX (Critical) Past History Past Medical History: heart disease Social history: single, IV drug use (has stopped) - Obstetrical History Expected Date of Delivery: 04/10/21 Actual Gestation: 34 Week(s) 6 Day(s) : 3 Para: 2 (C/S x2) Hx # Term Pregnancies: 2 Number of Pregnancies: 0 Spontaneous Abortions: 0 Induced : 0 Number of Living Children: 2 Medications and Allergies Allergies Allergy/AdvReac Type Severity Reaction Status Date / Time sumatriptan [From Imitrex] Allergy Angioedema Verified 02/26/21 07:50 sumatriptan succinate Allergy Angioedema Verified 02/26/21 07:50 [From Imitrex] Home Medications Medication Instructions Recorded Confirmed Last Taken Type Albuterol Mdi (or & Nicu Only) 2 puff IN Q4HR PRN 02/11/21 03/05/21 02/11/21 16:30 History Iron 2 tab PO DAILY 02/11/21 03/05/21 1 Day Ago History ~03/04/21 Acetaminophen/Codeine [Tylenol 1 - 2 tab PO Q6H PRN #10 tab 02/27/21 03/05/21 1 Day Ago Rx /Codeine # 3 tab] ~03/04/21 Augmentin 875MG TAB 1 tab PO DAILY 03/05/21 03/05/21 1 Day Ago History ~03/04/21 Vit-Fe Fumar-FA [ 1 tab PO DAILY 03/05/21 03/05/21 1 Day Ago History Vitamin] ~03/04/21 Active Meds: Active Medications Acetaminophen (Acetaminophen 325 Mg Tab) 650 mg PO Q4H PRN PRN Reason: Pain MILD(1-3)/Fever >100.5/QUEEN Betamethasone Acet/Betameth SodPhos (Betamet Acet/Betamet Na Ph 6 Mg/Ml Inj 5 Ml Mdv) 12 mg IM Q24H MARK Stop: 03/05/21 11:01 Diphenhydramine HCl (Diphenhydramine 25 Mg Cap) 25 mg PO Q6H PRN PRN Reason: Itching Docusate Sodium (Docusate Sodium 100 Mg Cap) 100 mg PO Q12H PRN PRN Reason: Constipation Lactated Ringer's (Lactated Ringers) 1,000 mls @ 125 mls/hr IV DIRECT MARK Multivitamins/Iron/Calcium ( Ylm22-Rd Fumarate-Folic Acid Vit Tab) 1 each PO QDAY MARK Ondansetron HCl (Ondansetron 4 Mg/2 Ml Inj) 4 mg IV Q6H PRN PRN Reason: Nausea And Vomiting Sodium Chloride (Sodium Chloride Nasal [place] 44ml) 2 spray NS Q4H PRN PRN Reason: Congestion Review of Systems All systems: negative - Physical Exam Breasts: Positive: normal Cardiovascular: Regular rate, Normal S1, Normal S2 Lungs: Positive: Clear to auscultation Abdomen: Positive: normal appearance, soft, normal bowel sounds. Negative: distention, tenderness Genitourinary (Female): Positive: normal external genitalia Vulva: both: normal Vagina: Positive: normal moisture. Negative: discharge Cervix: Negative: lesion, discharge Uterus: Positive: normal size, normal contour Adnexa: both: normal Anus/Rectum: Positive: normal perianal skin, heme negative. Negative: rectal mass, hemorrhoids Extremities: Positive: edema Deep Tendon Reflex Grade: Normal +2 - Obstetrical FHR: category 1 Uterine Contraction Pattern: Absent Uterine Tone Measurement Phase: Resting Results Result Diagrams: 03/04/21 11:30 03/04/21 11:30 All other labs normal. GBS Unknown Order to be obtained Tests: (1) Antibody Screen ([id number]) Antibody Screen Negative Rhogam given 01-16-21 HBsAg Screen Negative Negative *1 RPR Non Reactive Non Reactive *2 Rubella Antibodies, IgG 1.86 index Immune >0.99 *3 Non-immune <0.90 Equivocal 0.90 - 0.99 Immune >0.99 ABO Grouping O *4 Rh Factor Negative *5 Please note: Prior records for this patient's ABO / Rh type are not available for additional verification. Antibody Screen Negative Negative *6 WBC 7.2 x10E3/uL 3.4-10.8 *7 RBC [L] 3.70 x10E6/uL 3.77-5.28 *8 Hemoglobin [L] 11.0 g/dL 11.1-15.9 *9 Hematocrit [L] 33.2 % 34.0-46.6 *10 MCV 90 fL 79-97 *11 MCH 29.7 pg 26.6-33.0 *12 MCHC 33.1 g/dL 31.5-35.7 *13 RDW 13.0 % 11.7-15.4 *14 Platelets 213 x10E3/uL 150-450 *15 Neutrophils 76 % Not Estab. *16 Lymphs 17 % Not Estab. *17 Monocytes 6 % Not Estab. *18 Eos 1 % Not Estab. *19 Basos 0 % Not Estab. *20 ! Immature Cells <No Reported Value> *21 Neutrophils (Absolute) 5.4 x10E3/uL 1.4-7.0 *22 Lymphs (Absolute) 1.2 x10E3/uL 0.7-3.1 *23 Monocytes(Absolute) 0.4 x10E3/uL 0.1-0.9 *24 Eos (Absolute) 0.1 x10E3/uL 0.0-0.4 *25 Baso (Absolute) 0.0 x10E3/uL 0.0-0.2 *26 ! Immature Granulocytes 0 % Not Estab. *27 ! Immature Grans (Abs) 0.0 x10E3/uL 0.0-0.1 *28 ! NRBC <No Reported Value> *29 Hematology Comments: <No Reported Value> *30 Tests: (2) AFP, Serum, Open Spina Bifida ([id number]) Results Report *31 ! Test Results: *Screen Negative* *32 Gest. Age on Collection Date 16.4 weeks *33 ! Gestat. Age Based On Ultrasound *34 16.4 on 10/27/2020 Recalculations are not recommended when gestational dating by LMP and ultrasound are within 10 days. Assessment and Plan 40yo @ 34w sent to [facility] for evaluation of PreE. [facility] recommends admission and evaluation. All orders in EMR. Dr Bloom aware of admission - Patient Problems (1) 34 weeks gestation of Onset Date: ~03/04/21 Current Visit: Yes Status: Acute Plan to address problem: Pt to receive BMZ series; continuous monitoring; NICU consult (2) Heart disease in mother affecting in third trimester Onset Date: ~03/04/21 Current Visit: Yes Status: Acute Plan to address problem: Pt states she was to have an ECHO out pt via [facility]. Called Dr Villagomez She recommends inpt evaluation ECHO mark for 799 (3) Pre-eclampsia during in third trimester, antepartum Onset Date: ~03/04/21 Current Visit: Yes Status: Acute (4) Proteinuria complicating in third trimester Onset Date: ~03/04/21 Current Visit: Yes Status: Acute Plan to address problem: 24hr urine collected by [facility] result total protein 2,999 (5) Smoker Onset Date: ~03/04/21 Current Visit: Yes Status: Acute Plan to address problem: Nicotine patch ordered
[2021-03-04] MEDS ORDERED: ONDANSETRON 4 MG/2 ML INJ IV PRN (11:00)
[2021-03-04] MEDS ORDERED: SODIUM CHLORIDE NASAL SPRAY 44ML NS PRN (11:00)
[2021-03-04] MEDS ORDERED: ACETAMINOPHEN 325 MG TAB PO PRN (11:00)
[2021-03-04] MEDS ORDERED: diphenhydrAMINE 25 MG CAP PO PRN (11:00)
[2021-03-04] MEDS ORDERED: DOCUSATE SODIUM 100 MG CAP PO PRN (11:00)
[2021-03-04] MEDS: PRENATAL VIT27-FE FUMARATE-FOLIC ACID VIT TAB PO SCH (11:05)
[2021-03-04] MEDS: BETAMET ACET/BETAMET NA PH 6 MG/ML INJ 5 ML MDV IM SCH (11:06)
[2021-03-04 12:18] LABS: Basophils % (Auto) 0.1 % (0.0-1.8); Eosinophils % (Auto) 0.3 % (0.0-4.3); Hematocrit 24.6 % (30.3-42.9); Hemoglobin 8.4 gm/dl (10.1-14.3); Lymphocytes # (Auto) 2.1 K/mm3 (1.2-5.4); Lymphocytes % (Auto) 15.1 % (13.4-35.0); Mean Corpuscular HGB Conc 34 % (30-34); Mean Corpuscular Volume 92 fl (79-97); Monocytes % (Auto) 7.2 % (0.0-7.3); Platelet Count 307 K/mm3 (140-440); Red Blood Count 2.67 M/mm3 (3.65-5.03); Red Cell Distribution Width 13.9 % (13.2-15.2)
[2021-03-04 12:43] LABS: Alanine Aminotransferase 13 units/L (7-56); Albumin 2.8 g/dL (3.9-5); Blood Urea Nitrogen 13 mg/dL (7-17); Calcium 8.3 mg/dL (8.4-10.2); Hemolysis Index 47
[2021-03-04 12:47] LABS: BUN/Creatinine Ratio 65
[2021-03-04 12:55] LABS: Bilirubin,Urine NEG (Negative); Blood,Urine NEG (Negative); Calcium Oxalate Crystals,Urine 2+; Color,Urine Amber (Yellow); Mucus,Urine FEW /HPF; Protein,Urine >500 mg/dL (Negative); Urobilinogen,Urine < 2.0 mg/dL (<2.0)
[2021-03-04 14:01] LABS: INR 0.95 (0.87-1.13)
[2021-03-04 14:02] LABS: Partial Thromboplastin Time 26.9 Sec. (24.2-36.6)
--- NOTE | 2021-03-04 16:53 | Consultation ---
Consult Note - Parent Education I met with parent(s) and discussed the following:: Need for NICU admission, Poss ible need for intubation and surfactant or other resp support, Temperature regulation, Possible need for IV fluids/TPN and IV antibiotics, Possible need for umbilical lines, Importance of providing breast milk & encouraged pumping aft delivery, Slow feeding advancement and monitoring of tolerance. NG/OG feeds, Need to monitor for jaundice, Data for survival & survival without significant co-morbidities Parent(s) demonstrated understanding of all the information:: Yes Assessment and Plan - Assessment Gestation:: 34 - Plan Plan: Agree with steroids Will attend delivery Please call NICU with questions
--- NOTE | 2021-03-04 17:11 | Event Note ---
Date: 03/04/21 (ECHO ordered for the AM) Spoke with Dr Villagomez's nurse. Please order ECHO and then fax results to their office FAX: [phone] Order in EMR RN notified Dr Bloom aware
[2021-03-04] MEDS: NICOTINE 14 MG/24 HR PATCH TD SCH (17:49)
[2021-03-05] MEDS ORDERED: ZOLPIDEM 5 MG TAB PO ONE (01:39)
[2021-03-05] MEDS ORDERED: HYDROcodone/ACETAMINOPHEN 5-325 MG TAB PO ONE (01:39)
[2021-03-05 05:14] LABS: Amphetamine Screen,Urine Negative; Benzodiazepines Screen,Urine Negative; Cannabinoid Screen,Urine Negative; Cocaine Screen,Urine Negative; Methadone Screen,Urine Negative
[2021-03-05 05:31] LABS: Opiate Screen,Urine Positive
--- NOTE | 2021-03-05 08:27 | Progress Note ---
Assessment and Plan POC reviewed with pt and family member at bedside, and Madelyn GRANADOS. All questions addressed. Pt in good spirits and in agreement with plan. 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 F/U with [facility] Dr. Villagomez as needed. (2) Pre-eclampsia during in third trimester, antepartum Onset Date: ~03/04/21 Current Visit: Yes Status: Acute Plan to address problem: continuous monitoring 2nd dose BTZ today monitor strict intake, output, and vitals signs per orders (3) Smoker Onset Date: ~03/04/21 Current Visit: Yes Status: Acute Plan to address problem: Pt may have home and cessation medications as ordered. Subjective - Subjective Date of service: 03/05/21 Principal diagnosis: IUP@35wks with proteinuria Patient reports: movement normal, no new complaints, no loss of fluid, no vaginal bleeding, no contractions Objective - Vital Signs Vital Signs: Vital Signs - 12hr 03/04/21 03/04/21 03/04/21 20:23 20:28 20:33 Temperature Pulse Rate 90 97 H 92 H Respiratory Rate Blood Pressure O2 Sat by Pulse 98 97 96 Oximetry 03/04/21 03/04/21 03/04/21 20:38 20:39 20:43 Temperature Pulse Rate 98 H 95 H 89 Respiratory Rate Blood Pressure 136/74 O2 Sat by Pulse 96 96 Oximetry 03/04/21 03/04/21 03/04/21 20:51 20:57 21:02 Temperature Pulse Rate 102 H 92 H 95 H Respiratory Rate Blood Pressure O2 Sat by Pulse 98 96 97 Oximetry 03/04/21 03/04/21 03/04/21 21:07 21:08 21:12 Temperature Pulse Rate 90 91 H 91 H Respiratory Rate Blood Pressure 133/70 O2 Sat by Pulse 98 96 Oximetry 03/04/21 03/04/21 03/04/21 21:17 21:22 21:27 Temperature Pulse Rate 106 H 89 100 H Respiratory Rate Blood Pressure O2 Sat by Pulse 97 97 97 Oximetry 03/04/21 03/04/21 03/04/21 21:32 21:37 21:38 Temperature Pulse Rate 95 H 94 H 95 H Respiratory Rate Blood Pressure 122/66 O2 Sat by Pulse 98 95 Oximetry 03/04/21 03/04/21 03/04/21 21:42 21:47 21:52 Temperature Pulse Rate 91 H 94 H 91 H Respiratory Rate Blood Pressure O2 Sat by Pulse 96 96 97 Oximetry 03/04/21 03/04/21 03/04/21 21:57 22:02 22:07 Temperature Pulse Rate 103 H 92 H 88 Respiratory Rate Blood Pressure O2 Sat by Pulse 96 96 97 Oximetry 03/04/21 03/04/21 03/04/21 22:08 22:12 22:17 Temperature Pulse Rate 88 94 H 95 H Respiratory Rate Blood Pressure 124/65 O2 Sat by Pulse 95 96 Oximetry 03/04/21 03/04/21 03/04/21 22:22 22:27 22:32 Temperature Pulse Rate 99 H 88 93 H Respiratory Rate Blood Pressure O2 Sat by Pulse 96 95 96 Oximetry 03/04/21 03/04/21 03/04/21 22:37 22:38 22:42 Temperature Pulse Rate 89 87 87 Respiratory Rate Blood Pressure 128/66 O2 Sat by Pulse 96 94 96 Oximetry 03/04/21 03/04/21 03/04/21 22:47 22:52 22:57 Temperature Pulse Rate 82 86 98 H Respiratory Rate Blood Pressure O2 Sat by Pulse 96 96 97 Oximetry 03/04/21 03/04/21 03/04/21 23:02 23:07 23:08 Temperature Pulse Rate 101 H 93 H 86 Respiratory Rate Blood Pressure 141/65 O2 Sat by Pulse 97 97 90 Oximetry 03/04/21 03/04/21 03/04/21 23:12 23:23 23:28 Temperature Pulse Rate 91 H 90 82 Respiratory Rate Blood Pressure O2 Sat by Pulse 97 97 97 Oximetry 03/04/21 03/04/21 03/04/21 23:33 23:35 23:38 Temperature Pulse Rate 92 H 86 Respiratory 18 Rate Blood Pressure O2 Sat by Pulse 97 97 Oximetry 03/04/21 03/04/21 03/04/21 23:39 23:43 23:48 Temperature Pulse Rate 87 94 H 86 Respiratory Rate Blood Pressure 125/71 O2 Sat by Pulse 91 96 96 Oximetry 03/04/21 03/04/21 03/05/21 23:53 23:58 00:03 Temperature Pulse Rate 87 86 89 Respiratory Rate Blood Pressure O2 Sat by Pulse 96 97 96 Oximetry 03/05/21 03/05/21 03/05/21 00:08 00:13 00:18 Temperature Pulse Rate 88 92 H 95 H Respiratory Rate Blood Pressure 131/67 O2 Sat by Pulse 91 96 96 Oximetry 03/05/21 03/05/21 03/05/21 00:23 00:28 00:33 Temperature Pulse Rate 72 88 89 Respiratory Rate Blood Pressure O2 Sat by Pulse 95 95 97 Oximetry 03/05/21 03/05/21 03/05/21 00:38 00:39 00:43 Temperature Pulse Rate 89 88 90 Respiratory Rate Blood Pressure 113/58 O2 Sat by Pulse 95 93 95 Oximetry 03/05/21 03/05/21 03/05/21 00:54 00:59 01:04 Temperature Pulse Rate 99 H 87 88 Respiratory Rate Blood Pressure O2 Sat by Pulse 98 94 95 Oximetry 03/05/21 03/05/21 03/05/21 01:08 01:09 01:14 Temperature Pulse Rate 87 85 86 Respiratory Rate Blood Pressure 114/58 O2 Sat by Pulse 91 95 95 Oximetry 03/05/21 03/05/21 03/05/21 01:18 01:19 01:24 Temperature Pulse Rate 88 87 86 Respiratory Rate Blood Pressure O2 Sat by Pulse 94 94 95 Oximetry 03/05/21 03/05/21 03/05/21 01:29 01:30 01:34 Temperature Pulse Rate 91 H 88 96 H Respiratory Rate Blood Pressure O2 Sat by Pulse 95 94 96 Oximetry 03/05/21 03/05/21 03/05/21 01:38 01:39 01:44 Temperature Pulse Rate 83 86 99 H Respiratory Rate Blood Pressure 127/70 O2 Sat by Pulse 94 90 96 Oximetry 03/05/21 03/05/21 03/05/21 01:49 01:54 01:59 Temperature Pulse Rate 89 86 90 Respiratory Rate Blood Pressure O2 Sat by Pulse 96 96 95 Oximetry 03/05/21 03/05/21 03/05/21 02:04 02:09 02:14 Temperature Pulse Rate 91 H 84 82 Respiratory Rate Blood Pressure 122/66 O2 Sat by Pulse 96 93 95 Oximetry 03/05/21 03/05/21 03/05/21 02:18 02:19 02:24 Temperature Pulse Rate 88 94 H 95 H Respiratory Rate Blood Pressure O2 Sat by Pulse 94 95 95 Oximetry 03/05/21 03/05/21 03/05/21 02:29 02:34 02:39 Temperature Pulse Rate 83 89 81 Respiratory Rate Blood Pressure 131/62 O2 Sat by Pulse 97 97 94 Oximetry 03/05/21 03/05/21 03/05/21 02:44 02:49 02:54 Temperature Pulse Rate 85 80 82 Respiratory Rate Blood Pressure O2 Sat by Pulse 95 97 96 Oximetry 03/05/21 03/05/21 03/05/21 02:59 03:04 03:08 Temperature Pulse Rate 83 83 80 Respiratory Rate Blood Pressure 130/70 O2 Sat by Pulse 95 95 94 Oximetry 03/05/21 03/05/21 03/05/21 03:09 03:14 03:17 Temperature Pulse Rate 85 87 85 Respiratory Rate Blood Pressure O2 Sat by Pulse 91 94 94 Oximetry 03/05/21 03/05/21 03/05/21 03:19 03:24 03:29 Temperature Pulse Rate 86 84 90 Respiratory Rate Blood Pressure O2 Sat by Pulse 94 94 94 Oximetry 03/05/21 03/05/21 03/05/21 03:34 03:38 03:39 Temperature Pulse Rate 88 86 88 Respiratory Rate Blood Pressure 128/71 O2 Sat by Pulse 94 94 Oximetry 03/05/21 03/05/21 03/05/21 03:44 03:49 03:54 Temperature Pulse Rate 88 92 H 88 Respiratory Rate Blood Pressure O2 Sat by Pulse 94 94 94 Oximetry 03/05/21 03/05/21 03/05/21 03:59 04:04 04:08 Temperature Pulse Rate 87 89 91 H Respiratory Rate Blood Pressure 128/73 O2 Sat by Pulse 94 92 Oximetry 03/05/21 03/05/21 03/05/21 04:09 04:11 04:14 Temperature Pulse Rate 96 H 89 89 Respiratory Rate Blood Pressure O2 Sat by Pulse 94 94 94 Oximetry 03/05/21 03/05/21 03/05/21 04:17 04:19 04:22 Temperature Pulse Rate 87 90 87 Respiratory Rate Blood Pressure O2 Sat by Pulse 94 94 94 Oximetry 03/05/21 03/05/21 03/05/21 04:24 04:27 04:29 Temperature Pulse Rate 88 92 H 93 H Respiratory Rate Blood Pressure O2 Sat by Pulse 94 94 94 Oximetry 0403/05/21 03/05/21 04:33 04:34 04:38 Temperature Pulse Rate 92 H 91 H 88 Respiratory Rate Blood Pressure 128/69 O2 Sat by Pulse 94 94 Oximetry 03/05/21 03/05/21 03/05/21 04:39 04:46 04:47 Temperature Pulse Rate 79 101 H 98 H Respiratory Rate Blood Pressure 146/76 O2 Sat by Pulse 93 89 90 Oximetry 03/05/21 03/05/21 03/05/21 04:48 04:52 04:57 Temperature Pulse Rate 90 95 H 91 H Respiratory Rate Blood Pressure 133/70 O2 Sat by Pulse 97 97 Oximetry 03/05/21 03/05/21 03/05/21 04:58 05:02 05:07 Temperature 97.6 F Pulse Rate 92 H 83 Respiratory 18 Rate Blood Pressure O2 Sat by Pulse 94 96 Oximetry 03/05/21 03/05/21 03/05/21 05:12 05:17 05:19 Temperature Pulse Rate 86 85 79 Respiratory Rate Blood Pressure 117/60 O2 Sat by Pulse 94 97 91 Oximetry 03/05/21 03/05/21 03/05/21 05:22 05:27 05:32 Temperature Pulse Rate 81 84 80 Respiratory Rate Blood Pressure O2 Sat by Pulse 97 96 96 Oximetry 03/05/21 03/05/21 03/05/21 05:37 05:42 05:47 Temperature Pulse Rate 84 85 82 Respiratory Rate Blood Pressure O2 Sat by Pulse 96 97 96 Oximetry 03/05/21 03/05/21 03/05/21 05:49 05:52 05:57 Temperature Pulse Rate 83 80 83 Respiratory Rate Blood Pressure 138/75 O2 Sat by Pulse 93 96 95 Oximetry 03/05/21 03/05/21 03/05/21 06:02 06:07 06:12 Temperature Pulse Rate 84 82 84 Respiratory Rate Blood Pressure O2 Sat by Pulse 95 95 95 Oximetry 03/05/21 03/05/21 03/05/21 06:17 06:19 06:22 Temperature Pulse Rate 83 85 89 Respiratory Rate Blood Pressure 136/75 O2 Sat by Pulse 96 96 Oximetry 03/05/21 03/05/21 03/05/21 06:27 06:32 06:37 Temperature Pulse Rate 86 87 84 Respiratory Rate Blood Pressure O2 Sat by Pulse 96 97 97 Oximetry 03/05/21 03/05/2103/05/21 06:48 06:49 06:54 Temperature Pulse Rate 89 90 89 Respiratory Rate Blood Pressure 144/74 O2 Sat by Pulse 93 93 96 Oximetry 03/05/21 03/05/21 03/05/21 06:59 07:03 07:09 Temperature Pulse Rate 79 86 85 Respiratory Rate Blood Pressure O2 Sat by Pulse 96 97 96 Oximetry 03/05/21 03/05/21 03/05/21 07:14 07:19 07:24 Temperature Pulse Rate 85 81 84 Respiratory Rate Blood Pressure 127/69 O2 Sat by Pulse 96 93 95 Oximetry 03/05/21 03/05/21 03/05/21 07:26 07:29 07:34 Temperature Pulse Rate 92 H 91 H 87 Respiratory Rate Blood Pressure O2 Sat by Pulse 94 96 99 Oximetry 03/05/21 03/05/21 03/05/21 07:39 07:44 07:49 Temperature Pulse Rate 101 H 85 82 Respiratory Rate Blood Pressure 137/74 O2 Sat by Pulse 95 97 94 Oximetry 03/05/21 03/05/21 03/05/21 07:54 07:59 08:03 Temperature Pulse Rate 90 101 H 97 H Respiratory Rate Blood Pressure O2 Sat by Pulse 98 96 93 Oximetry 03/05/21 03/05/21 03/05/21 08:04 08:09 08:14 Temperature Pulse Rate 99 H 92 H 86 Respiratory Rate Blood Pressure O2 Sat by Pulse 95 98 99 Oximetry 03/05/21 08:19 Temperature Pulse Rate 87 Respiratory Rate Blood Pressure O2 Sat by Pulse 98 Oximetry - Exam Breasts: deferred Cardiovascular: Normal S1, Normal S2 Lungs: Normal air movement Abdomen: Present: soft. Absent: distention, tenderness Uterus: Present: normal FHR: auscultation normal, category 2 Uterine Contraction Monitor Mode: External Uterine Contraction Pattern: Irregular Uterine Tone Measurement Phase: Resting Extremities: edema Deep Tendon Reflex Grade: Normal +2 - Labs Labs: Abnormal Labs 03/04/21 03/04/21 03/04/21 11:30 11:30 11:56 WBC 14.0 H RBC 2.67 L Hgb 8.4 L Hct 24.6 L [place] # (Auto) 1.0 H Seg Neutrophils % 77.3 H Seg Neutrophils # 10.8 H Potassium 3.3 L Creatinine < 0.2 L Glucose 112 H Calcium 8.3 L Total Protein 5.3 L Albumin 2.8 L Urine WBC (Auto) 7.0 H Laboratory Results - last 24 hr 03/04/21 03/04/21 03/04/21 11:30 11:30 11:30 WBC 14.0 H RBC 2.67 L Hgb 8.4 L Hct 24.6 L MCV 92 MCH 32 MCHC 34 RDW 13.9 Plt Count 307 Lymph % (Auto) 15.1 [place] % (Auto) 7.2 Eos % (Auto) 0.3 Baso % (Auto) 0.1 Lymph # (Auto) 2.1 [place] # (Auto) 1.0 H Eos # (Auto) 0.0 Baso # (Auto) 0.0 Seg Neutrophils % 77.3 H Seg Neutrophils # 10.8 H PT INR APTT Sodium 139 Potassium 3.3 L Chloride 105.3 Carbon Dioxide 22 Anion Gap 15 BUN 13 Creatinine < 0.2 L Estimated GFR > 60 BUN/Creatinine Ratio 65 Glucose 112 H Calcium 8.3 L Total Bilirubin < 0.20 AST 24 ALT 13 Alkaline Phosphatase 59 Total Protein 5.3 L Albumin 2.8 L Albumin/Globulin Ratio 1.1 Urine Color Urine Turbidity Urine pH Ur Specific [place] Urine Protein Urine Glucose (UA) Urine Ketones Urine Blood Urine Nitrite Urine Bilirubin Urine Urobilinogen Ur Leukocyte Esterase Urine WBC (Auto) Urine RBC (Auto) U Epithel Cells (Auto) Calcium Oxalate Crystal Urine Mucus Urine Opiates Screen Urine Methadone Screen Ur Barbiturates Screen Ur Phencyclidine Scrn Ur Amphetamines Screen U Benzodiazepines Scrn Urine Cocaine Screen U Marijuana (THC) Screen Drugs of Abuse Note Syphilis IgG Antibody Blood Type O NEGATIVE Antibody Screen Positive Antibody Identification Anti-D (Passively Aquired) 03/04/21 03/04/21 03/04/21 11:30 11:56 13:29 WBC RBC Hgb Hct MCV MCH MCHC RDW Plt Count Lymph % (Auto) [place] % (Auto) Eos % (Auto) Baso % (Auto) Lymph # (Auto) [place] # (Auto) Eos # (Auto) Baso # (Auto) Seg Neutrophils % Seg Neutrophils # PT 12.6 INR 0.95 APTT 26.9 Sodium Potassium Chloride Carbon Dioxide Anion Gap BUN Creatinine Estimated GFR BUN/Creatinine Ratio Glucose Calcium Total Bilirubin AST ALT Alkaline Phosphatase Total Protein Albumin Albumin/Globulin Ratio Urine Color Honey Urine Turbidity Turbid Urine pH 7.0 Ur Specific [place] 1.018 Urine Protein >500 Urine Glucose (UA) Neg Urine Ketones Neg Urine Blood Neg Urine Nitrite Neg Urine Bilirubin Neg Urine Urobilinogen < 2.0 Ur Leukocyte Esterase Neg Urine WBC (Auto) 7.0 H Urine RBC (Auto) 16.0 U Epithel Cells (Auto) 2.0 Calcium Oxalate Crystal 2+ Urine Mucus Few Urine Opiates Screen Urine Methadone Screen Ur Barbiturates Screen Ur Phencyclidine Scrn Ur Amphetamines Screen U Benzodiazepines Scrn Urine Cocaine Screen U Marijuana (THC) Screen Drugs of Abuse Note Syphilis IgG Antibody Nonreactive Blood Type Antibody Screen Antibody Identification 03/05/21 04:50 WBC RBC Hgb Hct MCV MCH MCHC RDW Plt Count Lymph % (Auto) [place] % (Auto) Eos % (Auto) Baso % (Auto) Lymph # (Auto) [place] # (Auto) Eos # (Auto) Baso # (Auto) Seg Neutrophils % Seg Neutrophils # PT INR APTT Sodium Potassium Chloride Carbon Dioxide Anion Gap BUN Creatinine Estimated GFR BUN/Creatinine Ratio Glucose Calcium Total Bilirubin AST ALT Alkaline Phosphatase Total Protein Albumin Albumin/Globulin Ratio Urine Color Urine Turbidity Urine pH Ur Specific [place] Urine Protein Urine Glucose (UA) Urine Ketones Urine Blood Urine Nitrite Urine Bilirubin Urine Urobilinogen Ur Leukocyte Esterase Urine WBC (Auto) Urine RBC (Auto) U Epithel Cells (Auto) Calcium Oxalate Crystal Urine Mucus Urine Opiates Screen Positive Urine Methadone Screen Negative Ur Barbiturates Screen Negative Ur Phencyclidine Scrn Negative Ur Amphetamines Screen Negative U Benzodiazepines Scrn Negative Urine Cocaine Screen Negative U Marijuana (THC) Screen Negative Drugs of Abuse Note Disclamer Syphilis IgG Antibody Blood Type Antibody Screen Antibody Identification
--- NOTE | 2021-03-05 10:27 | Consultation ---
History of Present Illness Consult date: 03/05/21 Consult reason: known to you History of present illness: 40-year old F whom is 35 weeks , admitted for proteinuria, total protein 2999. A cardiac consultation has been requested because she is known to [facility] and is followed by Dr Villagomez. Patient reports some shortness of breath and lower extremity edema. Patient reports a history of Asthma and she continues to smoke. Denies history of sleep apnea. Denies chest pain. There is no history of coronary artery disease. In 2017, she had a Dobutamine stress echo that is reported as negative. Ejection fraction 60%. Her latest echocardiogram which was done 3 months ago showed a normal left ventricular systolic function, ejection fraction 55%. Past History Past Medical History: other (Asthma) Past Surgical History: Social history: single, smoking, IV drug use (has stopped) Medications and Allergies Allergies Allergy/AdvReac Type Severity Reaction Status Date / Time sumatriptan [From Imitrex] Allergy Angioedema Verified 02/26/21 07:50 sumatriptan succinate Allergy Angioedema Verified 02/26/21 07:50 [From Imitrex] Home Medications Medication Instructions Recorded Confirmed Last Taken Type Albuterol Mdi (or & Nicu Only) 2 puff IN Q4HR PRN 02/11/21 03/05/21 02/11/21 16:30 History Iron 2 tab PO DAILY 02/11/21 03/05/21 1 Day Ago History ~03/04/21 Acetaminophen/Codeine [Tylenol 1 - 2 tab PO Q6H PRN #10 tab 02/27/21 03/05/21 1 Day Ago Rx /Codeine # 3 tab] ~03/04/21 Augmentin 875MG TAB 1 tab PO DAILY 03/05/21 03/05/21 1 Day Ago History ~03/04/21 Vit-Fe Fumar-FA [ 1 tab PO DAILY 03/05/21 03/05/21 1 Day Ago History Vitamin] ~03/04/21 Active Meds: Active Medications Acetaminophen (Acetaminophen 325 Mg Tab) 650 mg PO Q4H PRN PRN Reason: Pain MILD(1-3)/Fever >100.5/QUEEN Last Admin: 03/04/21 23:35 Dose: 650 mg Documented by: Amoxicillin/Clavulanate Potassium (Amoxicillin/K Clav 875/125mg Tab) 1 each PO Q12HR [facility]; Protocol Stop: 03/10/21 23:59 Betamethasone Acet/Betameth SodPhos (Betamet Acet/Betamet Na Ph 6 Mg/Ml Inj 5 Ml Mdv) 12 mg IM Q24H [facility] Stop: 03/05/21 11:01 Last Admin: 03/04/21 11:06 Dose: 12 mg Documented by: Diphenhydramine HCl (Diphenhydramine 25 Mg Cap) 25 mg PO Q6H PRN PRN Reason: Itching Docusate Sodium (Docusate Sodium 100 Mg Cap) 100 mg PO Q12H PRN PRN Reason: Constipation Lactated Ringer's (Lactated Ringers) 1,000 mls @ 125 mls/hr IV DIRECT [facility] Multivitamins/Iron/Calcium ( Kmx48-Ts Fumarate-Folic Acid Vit Tab) 1 each PO QDAY [facility] Last Admin: 03/04/21 11:05 Dose: 1 each Documented by: Nicotine (Nicotine 14 Mg/24 Hr Patch) 14 mg TD QDAY [facility] Last Admin: 03/04/21 17:49 Dose: 14 mg Documented by: Ondansetron HCl (Ondansetron 4 Mg/2 Ml Inj) 4 mg IV Q6H PRN PRN Reason: Nausea And Vomiting Sodium Chloride (Sodium Chloride Nasal [place] 44ml) 2 spray NS Q4H PRN PRN Reason: Congestion Review of Systems Cardiovascular: edema (mild), shortness of breath, no chest pain, no palp itations, no rapid/irregular heart beat Physical Examination Vital Signs Pulse BP 96 H 128/69 03/04/21 11:46 03/04/21 11:46 General appearance: no acute distress HEENT: Positive: PERRL Neck: Positive: trachea midline Cardiac: Positive: Reg Rate and Rhythm Lungs: Positive: Normal Breath Sounds Neuro: Positive: Grossly Intact Extremities: Present: edema (mild) Results 03/04/21 11:30 03/04/21 11:30 Cardiac Enzymes 03/04/21 Range/Units 11:30 AST 24 (5-40) units/L Coagulation 03/04/21 Range/Units 13:29 PT 12.6 (12.2-14.9) Sec. INR 0.95 (0.87-1.13) APTT 26.9 (24.2-36.6) Sec. CBC 03/04/21 Range/Units 11:30 WBC 14.0 H (4.5-11.0) K/mm3 RBC 2.67 L (3.65-5.03) M/mm3 Hgb 8.4 L (10.1-14.3) gm/dl Hct 24.6 L (30.3-42.9) % Plt Count 307 (140-440) K/mm3 Lymph # (Auto) 2.1 (1.2-5.4) K/mm3 [place] # (Auto) 1.0 H (0.0-0.8) K/mm3 Eos # (Auto) 0.0 (0.0-0.4) K/mm3 Baso # (Auto) 0.0 (0.0-0.1) K/mm3 Comprehensive Metabolic Panel 03/04/21 Range/Units 11:30 Sodium 139 (137-145) mmol/L Potassium 3.3 L (3.6-5.0) mmol/L Chloride 105.3 (98-107) mmol/L Carbon Dioxide 22 (22-30) mmol/L BUN 13 (7-17) mg/dL Creatinine < 0.2 L (0.6-1.2) mg/dL Glucose 112 H (65-100) mg/dL Calcium 8.3 L (8.4-10.2) mg/dL AST 24 (5-40) units/L ALT 13 (7-56) units/L Alkaline Phosphatase 59 (35-129) units/L Total Protein 5.3 L (6.3-8.2) g/dL Albumin 2.8 L (3.9-5) g/dL Assessment and Plan - Patient Problems (1) Proteinuria complicating in third trimester Onset Date: ~03/04/21 Current Visit: Yes Status: Acute Plan to address problem: Patient admitted with proteinuria. There is no history of coronary artery disease. In 2017, she had a Dobutamine stress echo that is reported as negative. Ejection fraction 60%. Her latest echocardiogram which was done 3 months ago showed a normal left ventricular systolic function, ejection fraction 55%. For shortness of breath, will repeat an echocardiogram. Results are pending.
[2021-03-05] MEDS: PRENATAL VIT27-FE FUMARATE-FOLIC ACID VIT TAB PO SCH (10:38)
[2021-03-05] MEDS: BETAMET ACET/BETAMET NA PH 6 MG/ML INJ 5 ML MDV IM SCH (11:22)
[2021-03-05] MEDS: NICOTINE 14 MG/24 HR PATCH TD SCH (11:26)
[2021-03-05] MEDS: AMOXICILLIN/K CLAV 875/125MG TAB PO SCH ×2 (11:27→22:00)
--- NOTE | 2021-03-05 13:08 | Consultation ---
History of Present Illness Consult date: 03/05/21 Past History Past Medical History: heart disease - Obstetrical History : 3 Medications and Allergies Allergies Allergy/AdvReac Type Severity Reaction Status Date / Time sumatriptan [From Imitrex] Allergy Angioedema Verified 02/26/21 07:50 sumatriptan succinate Allergy Angioedema Verified 02/26/21 07:50 [From Imitrex] Home Medications Medication Instructions Recorded Confirmed Last Taken Type Albuterol Mdi (or & Nicu Only) 2 puff IN Q4HR PRN 02/11/21 03/05/21 02/11/21 16:30 History Iron 2 tab PO DAILY 02/11/21 03/05/21 1 Day Ago History ~03/04/21 Acetaminophen/Codeine [Tylenol 1 - 2 tab PO Q6H PRN #10 tab 02/27/21 03/05/21 1 Day Ago Rx /Codeine # 3 tab] ~03/04/21 Augmentin 875MG TAB 1 tab PO DAILY 03/05/21 03/05/21 1 Day Ago History ~03/04/21 Vit-Fe Fumar-FA [ 1 tab PO DAILY 03/05/21 03/05/21 1 Day Ago History Vitamin] ~03/04/21 Active Meds: Active Medications Acetaminophen (Acetaminophen 325 Mg Tab) 650 mg PO Q4H PRN PRN Reason: Pain MILD(1-3)/Fever >100.5/QUEEN Last Admin: 03/04/21 23:35 Dose: 650 mg Documented by: Amoxicillin/Clavulanate Potassium (Amoxicillin/K Clav 875/125mg Tab) 1 each PO Q12HR [facility]; Protocol Stop: 03/10/21 23:59 Last Admin: 03/05/21 11:27 Dose: 1 each Documented by: Diphenhydramine HCl (Diphenhydramine 25 Mg Cap) 25 mg PO Q6H PRN PRN Reason: Itching Docusate Sodium (Docusate Sodium 100 Mg Cap) 100 mg PO Q12H PRN PRN Reason: Constipation Lactated Ringer's (Lactated Ringers) 1,000 mls @ 125 mls/hr IV DIRECT [facility] Multivitamins/Iron/Calcium ( Tlg49-Cc Fumarate-Folic Acid Vit Tab) 1 each PO QDAY [facility] Last Admin: 03/05/21 10:38 Dose: 1 each Documented by: Nicotine (Nicotine 14 Mg/24 Hr Patch) 14 mg TD QDAY [facility] Last Admin: 03/05/21 11:26 Dose: 14 mg Documented by: Ondansetron HCl (Ondansetron 4 Mg/2 Ml Inj) 4 mg IV Q6H PRN PRN Reason: Nausea And Vomiting Sodium Chloride (Sodium Chloride Nasal [place] 44ml) 2 spray NS Q4H PRN PRN Reason: Congestion - Vital Signs Vital signs: Vital Signs Pulse BP 96 H 128/69 03/04/21 11:46 03/04/21 11:46 Temp Pulse Resp BP Pulse Ox 98.8 F 107 H 18 135/75 99 03/05/21 08:28 03/05/21 13:04 03/05/21 04:58 03/05/21 10:45 03/05/21 13:04 Results Result Diagrams: 03/04/21 11:30 03/04/21 11:30 All other labs normal. Assessment and Plan Pt seen Consult to follow
[2021-03-05] MEDS: ALBUTEROL 2.5 MG/3 ML NEBU IH PRN ×2 (13:32→22:12)
--- NOTE | 2021-03-05 14:06 | Anesthesia Consultation ---
Anesthesia Consult and Med Hx Date of service: 03/05/21 - Airway Anesthetic Teeth Evaluation: Poor ROM Head & Neck: Adequate Mental/Hyoid Distance: Adequate Mallampati Class: Class II Intubation Access Assessment: Probably Good - Pulmonary Exam CTA: Yes (deminished ) - Cardiac Exam Cardiac Exam: RRR - Pre-Operative Health Status ASA Pre-Surgery Classification: ASA3 Proposed Anesthetic Plan: Spinal - Pulmonary Hx Smoking: Yes Hx Asthma: Yes Hx Respiratory Symptoms: No SOB: Yes COPD: No Home Oxygen Therapy: No Hx Pneumonia: No Hx Sleep Apnea: No - Cardiovascular System Hx Hypertension: No Hx Coronary Artery Disease: No (Cardiac clearance in chart for sinus tachy, on verapamil) Hx Heart Attack/AMI: Yes (Atypical chest pain-4yrs. ECHO WNL) Hx Angina: No Hx Percutaneous Transluminal Coronary Angioplasty (PTCA): No Hx Cardia Arrhythmia: Yes (followed by cardiology got tachycardia) Hx Pacemaker: No Hx Internal Defibrillator: No Hx Valvular Heart Disease: No Hx Heart Murmur: No Hx Peripheral Vascular Disease: No - Central Nervous System Hx Neuromuscular Disorder: No Hx Seizures: No CVA: No Hx Back Pain: No Hx Psychiatric Problems: No - Gastrointestinal Hx Ulcer: No Hx Gastroesophageal Reflux Disease: Yes - Endocrine Hx Renal Disease: No Hx End Stage Renal Disease: No Hx Cirrhosis: No Hx Liver Disease: No Hx Insulin Dependent Diabetes: No Hx Non-Insulin Dependent Diabetes: No Hx Thyroid Disease: No Hx Hypothyroidism: No Hx Hyperthyroidism: No - Hematic Hx Anemia: Yes (gestational anemia) Hx Sickle Cell Disease: No - Other Systems Hx Alcohol Use: No (denies) Hx Substance Use: No (positive drug scrren at one of OB visits but deniesd uses.) Hx Cancer: No Hx Obesity: Yes - Additional Comments Anesthesia Medical History Comments: C/S X 2, Gallblader-slow to wake up
--- NOTE | 2021-03-05 18:36 | Event Note ---
Date: 03/05/21 Patient ambulating in her room, no complaints. [facility] recommendations explained, she desires to proceed with c/s with (B) salpingectomy for sterilization tomorrow. She voiced understanding. Consents reviewed and signed.
[2021-03-05] MEDS: BUDESONIDE 0.5 MG/2 ML NEBU IH SCH (22:12)
--- NOTE | 2021-03-05 22:17 | Ultrasound Report ---
ULTRASOUND OBSTETRIC LIMITED ULTRASOUND BIOPHYSICAL PROFILE INDICATION / CLINICAL INFORMATION: well being. Clinical Gestational Age (GA): 34.6 weeks.days COMPARISON: None available. FINDINGS: BREATHING MOVEMENT = 2 GROSS BODY MOVEMENT = 2 TONE = 2 QUALITATIVE AMNIOTIC FLUID VOLUME = 2 TOTAL BIOPHYSICAL SCORE = 8/8 HEART RATE (beats per minute): 133 AMNIOTIC FLUID INDEX (cm) = 12.0 (normal = 7-24 cm) PRESENTATION: Cephalic. ADDITIONAL FINDINGS: None. IMPRESSION: 1. Biophysical Score = 8/8 Signer Name: Jaun Miramontes MD Signed: 03/05/2021 10:12 PM Workstation Name: [employer] [id number]
[2021-03-06] MEDS: BUDESONIDE 0.5 MG/2 ML NEBU IH SCH ×2 (08:07→20:13)
[2021-03-06] MEDS ORDERED: ceFAZolin/Water 2 GM/20 ML 2 GM/20 ML SYRINGE IV NR (08:45)
[2021-03-06] MEDS ORDERED: FAMOTIDINE 20 MG/2 ML INJ IV ONE (08:45)
[2021-03-06] MEDS ORDERED: BICITRA ORAL LIQD 30ML PO ONE (08:45)
[2021-03-06] MEDS ORDERED: METOCLOPRAMIDE 10 MG/2 ML INJ IV ONE (08:45)
[2021-03-06] MEDS ORDERED: OXYTOCIN DRIP 30 UNITS/500 ML BAG IV SCH ×2 (08:45→16:00)
--- NOTE | 2021-03-06 09:24 | Progress Note ---
Assessment and Plan - Patient Problems (1) Proteinuria complicating in third trimester Onset Date: ~03/04/21 Current Visit: Yes Status: Acute Plan to address problem: Patient admitted with pre-eclampsia, proteinuria with total protein reported at 2999. Past cardiac history is unremarkable. Four years ago, she was evaluated for atypical chest pain with a dobutamine echocardiogram test that was reported negative. There is no history of coronary artery disease, documented myocardial infarction, significant cardiac arrhythmias or left ventricular dysfunction. Serial echocardiograms from 2014, until most recently 3 months ago have documented normal left ventricular systolic function and no significant valvular lesions. Work-up on this presentation: 12-lead ECG done today is normal sinus rhythm, normal ECG. Echocardiogram shows normal left ventricular systolic function, with no significant valvular lesions. Recommendations: There are no cardiac symptoms. Cardiac status is stable. You may proceed with delivery of the as indicated. Subjective Date of service: 03/06/21 Principal diagnosis: IUP@35wks with proteinuria Interval history: Patient has no complaints. Denies shortness of breath and denies palpitations. She is planned for a today. Objective Vital Signs Temp Pulse Pulse Resp Resp BP BP 03/06/21 08:07 104 H 18 03/06/21 06:21 106 H 03/06/21 06:20 84 03/06/21 06:16 76 03/06/21 06:15 86 03/06/21 06:11 87 03/06/21 06:06 87 03/06/21 06:01 86 03/06/21 05:59 109 H 03/06/21 05:56 99 H 03/06/21 05:51 94 H 03/06/21 05:46 95 H 03/06/21 05:41 94 H 03/06/21 05:36 95 H 03/06/21 05:31 92 H 03/06/21 05:26 91 H 03/06/21 05:21 95 H 03/06/21 05:16 92 H 03/06/21 05:11 95 H 03/06/21 05:06 94 H 03/06/21 05:01 93 H 03/06/21 04:56 94 H 03/06/21 04:51 92 H 03/06/21 04:46 93 H 03/06/21 04:41 86 03/06/21 04:36 91 H 03/06/21 04:31 91 H 03/06/21 04:26 92 H 03/06/21 04:21 88 03/06/21 04:16 89 03/06/21 04:11 89 03/06/21 04:06 90 03/06/21 04:01 91 H 03/06/21 04:00 98.3 F 94 H 16 109/58 03/06/21 03:58 94 H 109/58 03/06/21 03:56 86 03/06/21 03:51 88 03/06/21 03:46 88 03/06/21 03:41 91 H 03/06/21 03:36 88 03/06/21 03:31 88 03/06/21 03:26 86 03/06/21 03:21 86 03/06/21 03:16 83 03/06/21 03:11 97 H 03/06/21 03:06 87 03/06/21 03:01 87 03/06/21 02:56 86 03/06/21 02:51 86 03/06/21 02:47 83 03/06/21 02:46 85 03/06/21 02:41 87 03/06/21 02:37 90 03/06/21 02:36 91 H 03/06/21 02:31 88 03/06/21 02:26 91 H 03/06/21 02:21 91 H 03/06/21 02:16 89 03/06/21 02:11 91 H 03/06/21 02:06 86 03/06/21 02:01 90 03/06/21 01:56 90 03/06/21 01:51 93 H 03/06/21 01:46 93 H 03/06/21 01:41 87 03/06/21 01:36 90 03/06/21 01:31 84 03/06/21 01:26 91 H 03/06/21 01:21 98 H 03/06/21 01:16 93 H 03/06/21 01:11 93 H 03/06/21 01:06 92 H 03/06/21 01:01 95 H 03/06/21 00:56 93 H 03/06/21 00:51 95 H 03/06/21 00:46 92 H 03/06/21 00:41 94 H 03/06/21 00:36 95 H 03/06/21 00:31 97 H 03/06/21 00:26 94 H 03/06/21 00:21 99 H 03/06/21 00:16 99 H 03/06/21 00:11 103 H 03/06/21 00:07 87 121/58 03/06/21 00:06 108 H 03/06/21 00:00 98.7 F 87 16 128/51 03/05/21 23:55 118 H 03/05/21 23:53 96 H 03/05/21 23:50 94 H 03/05/21 23:47 98 H 03/05/21 23:45 98 H 03/05/21 23:42 99 H 03/05/21 23:40 99 H 03/05/21 23:35 96 H 03/05/21 23:30 100 H 03/05/21 23:25 102 H 03/05/21 23:24 101 H 03/05/21 23:20 103 H 03/05/21 23:15 102 H 03/05/21 23:10 103 H 03/05/21 23:05 101 H 03/05/21 23:00 104 H 03/05/21 22:55 102 H 03/05/21 22:50 107 H 03/05/21 22:45 113 H 03/05/21 22:40 124 H 03/05/21 22:35 105 H 03/05/21 22:30 100 H 03/05/21 22:25 102 H 03/05/21 22:20 90 03/05/21 22:15 97 H 03/05/21 22:13 100 H 18 03/05/21 22:10 99 H 03/05/21 22:05 100 H 03/05/21 22:00 101 H 03/05/21 21:55 106 H 03/05/21 21:13 105 H 03/05/21 21:08 99 H 03/05/21 21:03 92 H 03/05/21 20:58 89 03/05/21 20:53 94 H 03/05/21 20:48 101 H 03/05/21 20:43 101 H 03/05/21 20:38 98 H 03/05/21 20:33 96 H 03/05/21 20:28 105 H 03/05/21 19:15 98.2 F 95 H 16 140/67 03/05/21 19:08 95 H 140/67 03/05/21 19:00 93 H 03/05/21 18:55 97 H 03/05/21 18:50 90 03/05/21 18:45 95 H 03/05/21 18:41 98.9 F 03/05/21 18:40 94 H 03/05/21 18:35 92 H 03/05/21 18:30 88 03/05/21 18:25 96 H 03/05/21 18:20 88 03/05/21 18:15 106 H 03/05/21 17:58 87 03/05/21 17:53 90 03/05/21 17:48 89 03/05/21 17:43 84 03/05/21 17:38 89 03/05/21 17:33 90 03/05/21 17:28 94 H 03/05/21 17:23 96 H 03/05/21 17:18 99 H 03/05/21 17:13 102 H 03/05/21 17:08 73 03/05/21 17:00 89 03/05/21 16:55 88 03/05/21 16:50 91 H 03/05/21 16:45 89 03/05/21 16:40 95 H 03/05/21 16:35 95 H 03/05/21 16:30 91 H 03/05/21 16:29 98.7 F 03/05/21 16:25 94 H 03/05/21 16:21 89 123/60 03/05/21 16:20 97 H 17 123/60 03/05/21 16:15 86 03/05/21 16:10 92 H 03/05/21 16:05 88 03/05/21 16:00 83 03/05/21 15:55 85 03/05/21 15:50 89 03/05/21 15:45 112 H 03/05/21 15:40 89 03/05/21 15:35 84 03/05/21 15:30 94 H 03/05/21 15:19 90 03/05/21 15:14 92 H 03/05/21 15:09 91 H 03/05/21 15:04 84 03/05/21 14:59 100 H 03/05/21 14:58 90 03/05/21 14:54 92 H 03/05/21 14:49 92 H 03/05/21 14:44 92 H 03/05/21 14:39 115 H 03/05/21 14:34 98 H 03/05/21 14:29 91 H 03/05/21 14:24 93 H 03/05/21 14:19 102 H 03/05/21 14:14 101 H 03/05/21 14:09 96 H 03/05/21 14:04 95 H 03/05/21 13:59 96 H 03/05/21 13:54 93 H 03/05/21 13:49 101 H 03/05/21 13:44 114 H 03/05/21 13:39 108 H 03/05/21 13:34 89 03/05/21 13:30 116 H 18 03/05/21 13:29 98.6 F 90 17 135/67 03/05/21 13:28 88 135/67 03/05/21 13:24 97 H 03/05/21 13:19 106 H 03/05/21 13:14 114 H 03/05/21 13:09 106 H 03/05/21 13:04 107 H 03/05/21 12:59 103 H 03/05/21 12:54 101 H 03/05/21 12:49 96 H 03/05/21 12:44 105 H 03/05/21 12:39 112 H 03/05/21 12:34 109 H 03/05/21 12:29 111 H 03/05/21 12:24 95 H 03/05/21 12:19 92 H 03/05/21 12:14 97 H 03/05/21 12:09 91 H 03/05/21 12:04 92 H 03/05/21 11:59 94 H 03/05/21 11:54 95 H 03/05/21 11:49 97 H 03/05/21 11:44 98 H 03/05/21 11:39 87 03/05/21 11:34 87 03/05/21 11:29 90 03/05/21 11:24 90 03/05/21 11:19 89 03/05/21 11:14 89 03/05/21 11:09 90 03/05/21 11:04 89 03/05/21 10:59 100 H 03/05/21 10:54 89 03/05/21 10:49 80 03/05/21 10:45 91 H 18 135/75 135/75 03/05/21 10:44 81 Pulse Ox 03/06/21 08:07 03/06/21 06:21 97 03/06/21 06:20 94 03/06/21 06:16 95 03/06/21 06:15 94 03/06/21 06:11 98 03/06/21 06:06 98 03/06/21 06:01 96 03/06/21 05:59 92 03/06/21 05:56 97 03/06/21 05:51 97 03/06/21 05:46 97 03/06/21 05:41 97 03/06/21 05:36 97 03/06/21 05:31 97 03/06/21 05:26 98 03/06/21 05:21 98 03/06/21 05:16 98 03/06/21 05:11 98 03/06/21 05:06 98 03/06/21 05:01 98 03/06/21 04:56 98 03/06/21 04:51 99 03/06/21 04:46 99 03/06/21 04:41 98 03/06/21 04:36 98 03/06/21 04:31 98 03/06/21 04:26 97 03/06/21 04:21 97 03/06/21 04:16 97 03/06/21 04:11 99 03/06/21 04:06 98 03/06/21 04:01 98 03/06/21 04:00 98 03/06/21 03:58 03/06/21 03:56 97 03/06/21 03:51 97 03/06/21 03:46 96 03/06/21 03:41 96 03/06/21 03:36 97 03/06/21 03:31 97 03/06/21 03:26 98 03/06/21 03:21 98 03/06/21 03:16 97 03/06/21 03:11 98 03/06/21 03:06 96 03/06/21 03:01 96 03/06/21 02:56 96 03/06/21 02:51 96 03/06/21 02:47 94 03/06/21 02:46 95 03/06/21 02:41 96 03/06/21 02:37 94 03/06/21 02:36 96 03/06/21 02:31 95 03/06/21 02:26 95 03/06/21 02:21 95 03/06/21 02:16 95 03/06/21 02:11 95 03/06/21 02:06 96 03/06/21 02:01 96 03/06/21 01:56 96 03/06/21 01:51 98 03/06/21 01:46 97 03/06/21 01:41 98 03/06/21 01:36 98 03/06/21 01:31 97 03/06/21 01:26 98 03/06/21 01:21 96 03/06/21 01:16 97 03/06/21 01:11 96 03/06/21 01:06 96 03/06/21 01:01 97 03/06/21 00:56 97 03/06/21 00:51 97 03/06/21 00:46 97 03/06/21 00:41 97 03/06/21 00:36 97 03/06/21 00:31 97 03/06/21 00:26 97 03/06/21 00:21 97 03/06/21 00:16 98 03/06/21 00:11 98 03/06/21 00:07 94 03/06/21 00:06 98 03/06/21 00:00 94 03/05/21 23:55 97 03/05/21 23:53 94 03/05/21 23:50 95 03/05/21 23:47 94 03/05/21 23:45 95 03/05/21 23:42 94 03/05/21 23:40 95 03/05/21 23:35 94 03/05/21 23:30 95 03/05/21 23:25 94 03/05/21 23:24 94 03/05/21 23:20 96 03/05/21 23:15 96 03/05/21 23:10 98 03/05/21 23:05 97 03/05/21 23:00 98 03/05/21 22:55 97 03/05/21 22:50 97 03/05/21 22:45 98 03/05/21 22:40 99 03/05/21 22:35 97 03/05/21 22:30 99 03/05/21 22:25 99 03/05/21 22:20 99 03/05/21 22:15 98 03/05/21 22:13 03/05/21 22:10 98 03/05/21 22:05 98 03/05/21 22:00 98 03/05/21 21:55 98 03/05/21 21:13 99 03/05/21 21:08 98 03/05/21 21:03 98 03/05/21 20:58 98 03/05/21 20:53 98 03/05/21 20:48 98 03/05/21 20:43 98 03/05/21 20:38 99 03/05/21 20:33 99 03/05/21 20:28 98 03/05/21 19:15 98 03/05/21 19:08 03/05/21 19:00 98 03/05/21 18:55 97 03/05/21 18:50 99 03/05/21 18:45 98 03/05/21 18:41 03/05/21 18:40 98 03/05/21 18:35 98 03/05/21 18:30 99 03/05/21 18:25 98 03/05/21 18:20 98 03/05/21 18:15 97 03/05/21 17:58 98 03/05/21 17:53 97 03/05/21 17:48 98 03/05/21 17:43 97 03/05/21 17:38 97 03/05/21 17:33 98 03/05/21 17:28 99 03/05/21 17:23 99 03/05/21 17:18 98 03/05/21 17:13 99 03/05/21 17:08 98 03/05/21 17:00 99 03/05/21 16:55 99 03/05/21 16:50 99 03/05/21 16:45 99 03/05/21 16:40 99 03/05/21 16:35 99 03/05/21 16:30 99 03/05/21 16:29 03/05/21 16:25 98 03/05/21 16:21 03/05/21 16:20 98 03/05/21 16:15 98 03/05/21 16:10 99 03/05/21 16:05 99 03/05/21 16:00 98 03/05/21 15:55 98 03/05/21 15:50 98 03/05/21 15:45 100 03/05/21 15:40 96 03/05/21 15:35 100 03/05/21 15:30 99 03/05/21 15:19 98 03/05/21 15:14 99 03/05/21 15:09 98 03/05/21 15:04 96 03/05/21 14:59 98 03/05/21 14:58 93 03/05/21 14:54 95 03/05/21 14:49 96 03/05/21 14:44 96 03/05/21 14:39 99 03/05/21 14:34 96 03/05/21 14:29 98 03/05/21 14:24 96 03/05/21 14:19 98 03/05/21 14:14 99 03/05/21 14:09 98 03/05/21 14:04 99 03/05/21 13:59 98 03/05/21 13:54 99 03/05/21 13:49 100 03/05/21 13:44 100 03/05/21 13:39 99 03/05/21 13:34 100 03/05/21 13:30 03/05/21 13:29 99 03/05/21 13:28 03/05/21 13:24 100 03/05/21 13:19 99 03/05/21 13:14 99 03/05/21 13:09 100 03/05/21 13:04 99 03/05/21 12:59 97 03/05/21 12:54 98 03/05/21 12:49 99 03/05/21 12:44 99 03/05/21 12:39 99 03/05/21 12:34 99 03/05/21 12:29 98 03/05/21 12:24 97 03/05/21 12:19 98 03/05/21 12:14 98 03/05/21 12:09 97 03/05/21 12:04 98 03/05/21 11:59 98 03/05/21 11:54 98 03/05/21 11:49 99 03/05/21 11:44 99 03/05/21 11:39 99 03/05/21 11:34 100 03/05/21 11:29 100 03/05/21 11:24 99 03/05/21 11:19 98 03/05/21 11:14 98 03/05/21 11:09 98 03/05/21 11:04 100 03/05/21 10:59 100 03/05/21 10:54 99 03/05/21 10:49 98 03/05/21 10:45 03/05/21 10:44 99 - Physical Examination General: No Apparent Distress HEENT: Positive: PERRL Neck: Positive: trachea midline Cardiac: Positive: Reg Rate and Rhythm Lungs: Positive: Normal Breath Sounds Neuro: Positive: Grossly Intact Extremities: Absent: edema
--- NOTE | 2021-03-06 10:39 | Anesthesia Day of Surgery ---
Anesthesia Day of Surgery - Day of Surgery Patient Examined: Yes Patient H&P Reviewed: Yes Patient is NPO: Yes Beta Blockers: No Cardiac Clearance: No Pulmonary Clearance: No Kristofer's Test: N/A
--- NOTE | 2021-03-06 11:28 | Event Note ---
Date: 03/06/21 Discussed indication for section patient any questions thanks had surgery before and also room state that she desires permanent sterilization
[2021-03-06] MEDS ORDERED: ONDANSETRON 4 MG/2 ML INJ ONE ×2 (11:47)
[2021-03-06] MEDS ORDERED: BUPIVACAINE/PF (0.5%) 5 MG/1 ML 30 ML VIAL INFILTRATI ONE (12:06)
[2021-03-06] MEDS ORDERED: dexAMETHasone 20 MG/5 ML VIAL ONE (12:06)
[2021-03-06] MEDS ORDERED: KETOROLAC 30 MG/1 ML INJ ONE ×2 (12:16→12:17)
[2021-03-06] MEDS ORDERED: SODIUM CHLORIDE 0.9% 100 ML ONE (12:20)
[2021-03-06] MEDS ORDERED: MIDAZOLAM 2 MG/2 ML INJ ONE ×2 (12:51)
[2021-03-06] MEDS ORDERED: KETAMINE/STERILE WATER 50 MG/ML SYRINGE ONE (12:58)
[2021-03-06] MEDS ORDERED: PHENYLEPHRINE/NS 1,000 MCG/10 ML SYRINGE (OR USE) IV ONE (13:15)
--- NOTE | 2021-03-06 13:40 | Post Operative Note ---
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
[2021-03-06] MEDS ORDERED: NALOXONE 0.4 MG/1 ML INJ IV PRN ×2 (14:39→16:00)
[2021-03-06] MEDS ORDERED: ONDANSETRON 4 MG/2 ML INJ IV PRN (14:39)
[2021-03-06] MEDS ORDERED: HYDROmorphone 1 MG/1 ML INJ IV PRN (14:39)
--- NOTE | 2021-03-06 14:39 | Progress Note ---
Spinal Anesthesia Block - Spinal Anesthesia Block Start Time: 11:35 Stop Time: 11:44 Performed by:: JOSE J WHITE Procedure: Patient IDed, H&P reviewed, all questions and concerns were answered, and consent was signed. Timeout was performed at bedside. Patient in sitting position. Sterile prep and drape was performed. [3] ml of 1% lidocaine skin wheal at L[3]- L [4]. Needle introducer advanced. 25 gauge spinal needle advanced. Clear, free flowing CSF. negative blood, negative paresthesia. Spinal dose given. All needles removed. Patient tolerated procedure.
--- NOTE | 2021-03-06 15:50 | Progress Note ---
Subjective Principal diagnosis: IUP@35wks with proteinuria Objective - Constitutional Vitals: Vital Signs - 12hr 03/06/21 03/06/21 03/06/21 03:51 03:56 03:58 Temperature Pulse Rate 88 86 94 H Pulse Rate [ Bilateral] Respiratory Rate Respiratory Rate [Bilateral ] Blood Pressure 109/58 Blood Pressure [Right] O2 Sat by Pulse 97 97 Oximetry 03/06/21 03/06/21 03/06/21 04:00 04:01 04:06 Temperature 98.3 F Pulse Rate 94 H 91 H 90 Pulse Rate [ Bilateral] Respiratory 16 Rate Respiratory Rate [Bilateral ] Blood Pressure Blood Pressure 109/58 [Right] O2 Sat by Pulse 98 98 98 Oximetry 03/06/21 03/06/21 03/06/21 04:11 04:16 04:21 Temperature Pulse Rate 89 89 88 Pulse Rate [ Bilateral] Respiratory Rate Respiratory Rate [Bilateral ] Blood Pressure Blood Pressure [Right] O2 Sat by Pulse 99 97 97 Oximetry 03/06/21 03/06/21 03/06/21 04:26 04:31 04:36 Temperature Pulse Rate 92 H 91 H 91 H Pulse Rate [ Bilateral] Respiratory Rate Respiratory Rate [Bilateral ] Blood Pressure Blood Pressure [Right] O2 Sat by Pulse 97 98 98 Oximetry 03/06/21 03/06/21 03/06/21 04:41 04:46 04:51 Temperature Pulse Rate 86 93 H 92 H Pulse Rate [ Bilateral] Respiratory Rate Respiratory Rate [Bilateral ] Blood Pressure Blood Pressure [Right] O2 Sat by Pulse 98 99 99 Oximetry 03/06/21 03/06/21 03/06/21 04:56 05:01 05:06 Temperature Pulse Rate 94 H 93 H 94 H Pulse Rate [ Bilateral] Respiratory Rate Respiratory Rate [Bilateral ] Blood Pressure Blood Pressure [Right] O2 Sat by Pulse 98 98 98 Oximetry 03/06/21 03/06/21 03/06/21 05:11 05:16 05:21 Temperature Pulse Rate 95 H 92 H 95 H Pulse Rate [ Bilateral] Respiratory Rate Respiratory Rate [Bilateral ] Blood Pressure Blood Pressure [Right] O2 Sat by Pulse 98 98 98 Oximetry 03/06/21 03/06/21 03/06/21 05:26 05:31 05:36 Temperature Pulse Rate 91 H 92 H 95 H Pulse Rate [ Bilateral] Respiratory Rate Respiratory Rate [Bilateral ] Blood Pressure Blood Pressure [Right] O2 Sat by Pulse 98 97 97 Oximetry 03/06/21 03/06/21 03/06/21 05:41 05:46 05:51 Temperature Pulse Rate 94 H 95 H 94 H Pulse Rate [ Bilateral] Respiratory Rate Respiratory Rate [Bilateral ] Blood Pressure Blood Pressure [Right] O2 Sat by Pulse 97 97 97 Oximetry 03/06/21 03/06/21 03/06/21 05:56 05:59 06:01 Temperature Pulse Rate 99 H 109 H 86 Pulse Rate [ Bilateral] Respiratory Rate Respiratory Rate [Bilateral ] Blood Pressure Blood Pressure [Right] O2 Sat by Pulse 97 92 96 Oximetry 03/06/21 03/06/21 03/06/21 06:06 06:11 06:15 Temperature Pulse Rate 87 87 86 Pulse Rate [ Bilateral] Respiratory Rate Respiratory Rate [Bilateral ] Blood Pressure Blood Pressure [Right] O2 Sat by Pulse 98 98 94 Oximetry 03/06/21 03/06/21 03/06/21 06:16 06:20 06:21 Temperature Pulse Rate 76 84 106 H Pulse Rate [ Bilateral] Respiratory Rate Respiratory Rate [Bilateral ] Blood Pressure Blood Pressure [Right] O2 Sat by Pulse 95 94 97 Oximetry 03/06/21 03/06/21 03/06/21 08:00 08:07 09:31 Temperature 98.7 F Pulse Rate 93 H 93 H Pulse Rate [ 104 H Bilateral] Respiratory 18 Rate Respiratory 18 Rate [Bilateral ] Blood Pressure 139/74 Blood Pressure 139/74 [Right] O2 Sat by Pulse Oximetry 03/06/21 03/06/21 03/06/21 13:40 13:42 13:45 Temperature 98.1 F Pulse Rate 75 71 71 Pulse Rate [ Bilateral] Respiratory 18 18 Rate Respiratory Rate [Bilateral ] Blood Pressure 119/63 119/63 120/64 Blood Pressure [Right] O2 Sat by Pulse 97 97 97 Oximetry 03/06/21 03/06/21 03/06/21 13:46 13:47 13:50 Temperature Pulse Rate 71 71 75 Pulse Rate [ Bilateral] Respiratory 18 Rate Respiratory Rate [Bilateral ] Blood Pressure 120/64 121/67 Blood Pressure [Right] O2 Sat by Pulse 97 97 Oximetry 03/06/21 03/06/21 03/06/21 13:51 13:52 13:56 Temperature Pulse Rate 75 68 73 Pulse Rate [ Bilateral] Respiratory Rate Respiratory Rate [Bilateral ] Blood Pressure 121/67 119/64 Blood Pressure [Right] O2 Sat by Pulse 97 Oximetry 03/06/21 03/06/21 03/06/21 13:57 14:01 14:02 Temperature Pulse Rate 70 77 71 Pulse Rate [ Bilateral] Respiratory Rate Respiratory Rate [Bilateral ] Blood Pressure 123/64 Blood Pressure [Right] O2 Sat by Pulse 97 96 Oximetry 03/06/21 03/06/21 03/06/21 14:05 14:06 14:07 Temperature Pulse Rate 71 71 69 Pulse Rate [ Bilateral] Respiratory 18 Rate Respiratory Rate [Bilateral ] Blood Pressure 119/63 119/63 Blood Pressure [Right] O2 Sat by Pulse 96 96 Oximetry 03/06/21 03/06/21 03/06/21 14:12 14:16 14:17 Temperature Pulse Rate 76 63 72 Pulse Rate [ Bilateral] Respiratory Rate Respiratory Rate [Bilateral ] Blood Pressure 120/67 127/72 Blood Pressure [Right] O2 Sat by Pulse 96 95 Oximetry 03/06/21 03/06/21 03/06/21 14:20 14:21 14:22 Temperature Pulse Rate 75 75 74 Pulse Rate [ Bilateral] Respiratory 18 Rate Respiratory Rate [Bilateral ] Blood Pressure 120/66 120/66 Blood Pressure [Right] O2 Sat by Pulse 97 97 Oximetry 03/06/21 03/06/21 03/06/21 14:26 14:27 14:31 Temperature Pulse Rate 75 74 75 Pulse Rate [ Bilateral] Respiratory Rate Respiratory Rate [Bilateral ] Blood Pressure 125/66 116/69 Blood Pressure [Right] O2 Sat by Pulse 97 Oximetry 03/06/21 03/06/21 03/06/21 14:32 14:35 14:36 Temperature Pulse Rate 76 74 74 Pulse Rate [ Bilateral] Respiratory 18 Rate Respiratory Rate [Bilateral ] Blood Pressure 105/61 105/61 Blood Pressure [Right] O2 Sat by Pulse 97 98 Oximetry 03/06/21 03/06/21 03/06/21 14:37 14:41 14:42 Temperature Pulse Rate 78 75 77 Pulse Rate [ Bilateral] Respiratory Rate Respiratory Rate [Bilateral ] Blood Pressure 129/69 Blood Pressure [Right] O2 Sat by Pulse 98 97 Oximetry 03/06/21 03/06/21 03/06/21 14:46 14:47 14:50 Temperature 98.7 F Pulse Rate 81 79 76 Pulse Rate [ Bilateral] Respiratory 18 Rate Respiratory Rate [Bilateral ] Blood Pressure 123/71 115/66 Blood Pressure [Right] O2 Sat by Pulse 97 96 Oximetry 03/06/21 03/06/21 03/06/21 14:51 14:52 14:57 Temperature Pulse Rate 76 82 78 Pulse Rate [ Bilateral] Respiratory Rate Respiratory Rate [Bilateral ] Blood Pressure 115/66 111/52 Blood Pressure [Right] O2 Sat by Pulse 96 96 Oximetry 03/06/21 03/06/21 03/06/21 15:01 15:02 15:03 Temperature Pulse Rate 71 68 69 Pulse Rate [ Bilateral] Respiratory Rate Respiratory Rate [Bilateral ] Blood Pressure 126/63 Blood Pressure [Right] O2 Sat by Pulse 94 94 Oximetry 03/06/21 03/06/21 03/06/21 15:06 15:07 15:11 Temperature Pulse Rate 72 70 75 Pulse Rate [ Bilateral] Respiratory Rate Respiratory Rate [Bilateral ] Blood Pressure 118/61 120/60 Blood Pressure [Right] O2 Sat by Pulse 96 Oximetry 03/06/21 03/06/21 03/06/21 15:12 15:16 15:17 Temperature Pulse Rate 70 72 69 Pulse Rate [ Bilateral] Respiratory Rate Respiratory Rate [Bilateral ] Blood Pressure 117/57 Blood Pressure [Right] O2 Sat by Pulse 95 96 Oximetry 03/06/21 03/06/21 03/06/21 15:21 15:22 15:26 Temperature Pulse Rate 71 79 71 Pulse Rate [ Bilateral] Respiratory Rate Respiratory Rate [Bilateral ] Blood Pressure 115/62 115/63 Blood Pressure [Right] O2 Sat by Pulse 96 Oximetry 03/06/21 03/06/21 03/06/21 15:27 15:28 15:31 Temperature Pulse Rate 69 70 75 Pulse Rate [ Bilateral] Respiratory Rate Respiratory Rate [Bilateral ] Blood Pressure 112/60 Blood Pressure [Right] O2 Sat by Pulse 95 94 Oximetry 03/06/21 03/06/21 03/06/21 15:32 15:36 15:37 Temperature Pulse Rate 75 67 69 Pulse Rate [ Bilateral] Respiratory Rate Respiratory Rate [Bilateral ] Blood Pressure 109/55 Blood Pressure [Right] O2 Sat by Pulse 96 97 Oximetry 03/06/21 03/06/21 03/06/21 15:41 15:42 15:46 Temperature Pulse Rate 68 68 77 Pulse Rate [ Bilateral] Respiratory Rate Respiratory Rate [Bilateral ] Blood Pressure 111/56 112/56 Blood Pressure [Right] O2 Sat by Pulse 95 Oximetry - Labs CBC & Chem 7: 03/04/21 11:30 03/04/21 11:30 Regional Anesthesia Block - Regional Anesthesia Block Start Time: 14:07 Stop Time: 14:09 Performed By:: JOSE J WHITE Procedure: Patient consented for TAP block for post surgical pain management. Patient identified, monitors placed, and time out performed. TAP identified bilaterally via ultrasound. Skin prepped bilaterally with and [22g stimuplex] needle advanced to the TAP. [Marcaine 0.22% 35ml] injected under ultrasound guidance on the [left] side. [Marcaine 0.22% 35ml] injected under ultrasound guidance on the [right] side. Negative aspiration every 5mL, No change in heart rate or rhythm. Patient tolerated the procedure well. No apparent complications seen.
[2021-03-06] MEDS ORDERED: WITCH HAZEL/ GLYCERIN PAD TP PRN (16:00)
[2021-03-06] MEDS ORDERED: LANOLIN/ZINC/DIMETHICONE (LANSINOH) 7 GM TP PRN (16:00)
[2021-03-06] MEDS ORDERED: D5W/LACTATED RINGERS 1,000 ML IV SCH (16:00)
[2021-03-06] MEDS ORDERED: oxyCODONE /ACETAMINOPHEN 5-325MG TAB PO PRN (16:00)
[2021-03-06] MEDS ORDERED: MAGNESIUM HYDROXIDE (MOM) ORAL LIQD UDC PO PRN (16:00)
[2021-03-06 16:07] LABS: Hematocrit 22.7 % (30.3-42.9)
--- NOTE | 2021-03-06 17:08 | Electrocardiograph Report ---
[facility] Test Date: 2021-03-05 Test Time: 09:50:02 Pat Name: MYESHA TRUONG Department: Room: 2003 11 Gender: F [employer] Service Dispatcher: DELMI : 1980 Requested By: NORM CALDWELL Order Number: [id number] Reading MD: Norm Caldwell Measurements Intervals [place] Rate: 90 P: 43 PA: 147 QRS: 56 QRSD: 81 T: 31 QT: 352 QTc: 432 Interpretive Statements Sinus rhythm No previous ECG available for comparison Electronically Signed On 03-06-2021 17:08:03 EDT by Norm Caldwell
--- NOTE | 2021-03-06 18:07 | Operative Report ---
Operative Report Operative Report: Date of procedure: March 06, 2021 Pre-operative diagnosis: Intrauterine at 34 weeks with gestational hypertension and significant proteinuria, previous sections history of possible maternal heart disease and history of amphetamine abuse. Post-operative diagnosis: Same plus pelvic adhesive disease Procedure name(s): Repeat low transverse section with lysis of adhesions, right salpingo-oophorectomy and partial left salpingectomy Surgeon: Rigo Bloom MD Turret Punch Press Operator: Ayla Ventura CST Anesthesia: Spinal EBL: 1100 cc Complications: Bleeding from the right ovary Findings: Patient with adhesions of the anterior uterus to anterior abdominal wall the uterus was rotated to the patient's left due to adhesions she had bilateral adnexal adhesions to the posterior uterus with the ovaries both cases and adhesions. Female weight 5 pounds 6 ounces Apgars 8 at 1 minute and 8 at 5 minutes. Specimen(s): Right adnexa, portion of the left fallopian tube and placenta Procedure: The patient was brought to the operating room. A spinal was placed without any complications. She was then placed in left lateral tilt. Prepped and draped in the usual sterile manner. After testing for adequate anesthesia level, a Pfannenstiel incision was made through her previous scar. This incision was taken down to the fascia. The fascia was then nicked in the midline. This incision was extended out laterally with Barfield scissors. The fascia was then sharply and bluntly from the underlying rectus muscles. The rectus muscles were bluntly and sharply . The peritoneum was then entered with blunt and sharp dissection of the anterior uterus to the abdominal wall. This incision was spread vertically with care not to damage the bladder below. The patient's findings as noted above. After further lysis of adhesions the Suresh self-retaining tractor was then placed without any difficulty. The bladder flap was then formed sharply and bluntly with Metzenbaum scissors. A transverse incision was made in lower uterine segment. This incision was extended laterally with the operators fingers. The amniotic sac was then entered bluntly with the assistant press operator's fingers. The was delivered from the vertex position. Bulb suction on the mother's abdomen. Cord was double clamped and cut. The infant was then passed to the nursery personnel who were in attendance. The above scores were given by the nursery personnel. The placenta was then bluntly removed. The uterus was then externalized and wiped clean the remaining products. The uterine incision was closed in layers. The first incision was closed in a locking manner using 0 Vicryl. This was followed by imbricating stitch also with 0 Vicryl. Attention was then switched to the patient's fallopian tubes. On the patient's right side had this adhesions covering the fallopian tube and the ovary with adhesions to the posterior uterus. Doing a lysis of adhesions did note some bleeding that I attempted to stop with 3-0 and 0 Vicryl. The right ovary continue to have bleeding incision was made to remove the ovary along with the fallopian tube. Estrellita clamps were placed across the ovarian vessels the ureter was palpated out of the operative field. Estrellita clamp was then placed approximately 2 cm from the cornea of the uterus. The fallopian tube and ovarian vessels were clamped and cut. The mesosalpinx was left still had bleeding that needed several additional sutures were 3-0 Vicryl to become hemostatic. Once the right adnexa was stabilized attention was then switched to the left adnexa. The left ovary and distal tube were again densely adherent to the uterus, therefore I made the decision to do a partial salpingectomy. An avascular window was performed in the the mesosalpinx under the fallopian tube approximately 1 cm from the cornea for a distance of approximately 2 cm. Estrellita clamps were replaced in the avascular window the fallopian tube was cauterized cut and tied with 2-0 chromic. The tubal stumps were hemostatic. The patient's pelvis was copiously irrigated. Attention was then switched back to the uterine closure. This closure was hemostatic. The bladder flap was copiously irrigated and found to be hemostatic. The pelvis was copiously irrigated and found to be hemostatic. The uterus was then placed back to the patient's abdomen. The adnexa on both sides were inspected and found to be hemostatic. The retractors were removed. The rectus muscles were inspected and found to be hemostatic. The fascia was then closed in a running manner using 0 Vicryl. This incision was hemostatic irrigation Bovie. The skin was reapproximated with 4-0 Vicryl subcuticularly. The patient tolerated procedure well. Her urine was clear. The infant was admitted to the intensive care nursery for observation. The patient was accompanied to recovery room in good condition. Instrument count correct x3
[2021-03-06] MEDS: ceFAZolin/NS 1 GM/50 ML 1 GM/50 ML BAG IV SCH (20:33)
[2021-03-06 23:54] LABS: Hematocrit 24.2 % (30.3-42.9); Hemoglobin 8.3 gm/dl (10.1-14.3)
[2021-03-07] MEDS: HYDROcodone/ACETAMINOPHEN 5-325 MG TAB PO PRN ×4 (00:19→18:35)
[2021-03-07] MEDS: SIMETHICONE 80 MG CHEW TAB PO PRN ×2 (02:50→15:00)
[2021-03-07] MEDS: IBUPROFEN 800 MG TAB PO PRN ×3 (04:17→22:06)
[2021-03-07] MEDS: ceFAZolin/NS 1 GM/50 ML 1 GM/50 ML BAG IV SCH (04:17)
--- NOTE | 2021-03-07 06:41 | Post Anesthesia Evaluation ---
- Post Anesthesia Evaluation Patient Participated: Yes Airway Patent: Yes Stable Respiratory Function: Yes Nausea/Vomiting: No Temp > 96.8F: Yes Pain Manageable: Yes Adequeate Hydration: Yes Anesthesia Complications: No Block Receding Appropriately: Yes Patient on Ventilator: No
[2021-03-07] MEDS: BUDESONIDE 0.5 MG/2 ML NEBU IH SCH (08:30)
[2021-03-07] MEDS: ALBUTEROL 2.5 MG/3 ML NEBU IH PRN (08:30)
--- NOTE | 2021-03-07 09:48 | Progress Note ---
Assessment and Plan H/H 8.0/22.7 asymptomatic anemia d/t blood loss - Patient Problems (1) Smoker Onset Date: ~03/04/21 Current Visit: Yes Status: Acute Plan to address problem: Pt may have home and cessation medications as ordered. (2) care following delivery Current Visit: Yes Status: Acute Plan to address problem: Plan to follow routine course. Ambulation, breast pumping, and abdominal binder usage encouraged. Subjective - Subjective Date of service: 03/07/21 Principal diagnosis: PP C/S Day 1 Interval history: Pt denies dizziness, lightheadedness, or feeling faint when up to BR or ambulating. Patient reports: appetite normal, voiding normally, pain well controlled (requests order for abdominal binder), flatus, ambulating normally, other ( Denies QUEEN, vision changes, RUQ pain) : doing well, in NICU, bottle feeding (attempting to bottlefeed, currently with NG tube; pt desires to continue breast pumping) Objective - Vital Signs Latest vital signs: Vital Signs Temp Pulse Pulse Resp Resp BP BP 03/07/21 06:24 18 03/07/21 04:46 98.1 F 76 20 122/64 03/07/21 04:17 18 03/07/21 00:19 20 03/07/21 00:15 98.0 F 85 18 134/77 03/06/21 20:33 98.2 F 74 18 140/73 03/06/21 20:16 90 16 03/06/21 17:55 99.2 F 77 20 120/68 03/06/21 17:26 89 133/67 03/06/21 17:17 78 03/06/21 17:12 76 03/06/21 17:07 76 03/06/21 17:02 76 03/06/21 16:57 74 03/06/21 16:52 78 126/65 03/06/21 16:47 71 03/06/21 16:42 71 03/06/21 16:37 74 03/06/21 16:32 70 03/06/21 16:27 78 03/06/21 16:22 77 03/06/21 16:17 74 03/06/21 16:12 69 03/06/21 16:07 76 03/06/21 16:02 64 03/06/21 15:57 75 03/06/21 15:52 77 03/06/21 15:51 74 113/59 03/06/21 15:47 71 03/06/21 15:46 77 112/56 03/06/21 15:42 68 03/06/21 15:41 68 111/56 03/06/21 15:37 69 03/06/21 15:36 67 109/55 03/06/21 15:32 75 03/06/21 15:31 75 112/60 03/06/21 15:28 70 03/06/21 15:27 69 03/06/21 15:26 71 115/63 03/06/21 15:22 79 03/06/21 15:21 71 115/62 03/06/21 15:17 69 03/06/21 15:16 72 117/57 03/06/21 15:12 70 03/06/21 15:11 75 120/60 03/06/21 15:07 70 03/06/21 15:06 72 118/61 03/06/21 15:03 69 03/06/21 15:02 68 03/06/21 15:01 71 126/63 03/06/21 14:57 78 111/52 03/06/21 14:52 82 03/06/21 14:51 76 115/66 03/06/21 14:50 98.7 F 76 18 115/66 03/06/21 14:47 79 03/06/21 14:46 81 123/71 03/06/21 14:42 77 03/06/21 14:41 75 129/69 03/06/21 14:37 78 03/06/21 14:36 74 105/61 03/06/21 14:35 74 18 105/61 03/06/21 14:32 76 03/06/21 14:31 75 116/69 03/06/21 14:27 74 03/06/21 14:26 75 125/66 03/06/21 14:22 74 03/06/21 14:21 75 120/66 03/06/21 14:20 75 18 120/66 03/06/21 14:17 72 03/06/21 14:16 63 127/72 03/06/21 14:12 76 120/67 03/06/21 14:07 69 03/06/21 14:06 71 119/63 03/06/21 14:05 71 18 119/63 03/06/21 14:02 71 03/06/21 14:01 77 123/64 03/06/21 13:57 70 03/06/21 13:56 73 119/64 03/06/21 13:52 68 03/06/21 13:51 75 121/67 03/06/21 13:50 75 18 121/67 03/06/21 13:47 71 03/06/21 13:46 71 120/64 03/06/21 13:45 71 18 120/64 03/06/21 13:42 71 119/63 03/06/21 13:40 98.1 F 75 18 119/63 Pulse Ox 03/07/21 06:24 03/07/21 04:46 96 03/07/21 04:17 03/07/21 00:19 03/07/21 00:15 97 03/06/21 20:33 96 03/06/21 20:16 03/06/21 17:55 03/06/21 17:26 03/06/21 17:17 97 03/06/21 17:12 98 03/06/21 17:07 97 03/06/21 17:02 97 03/06/21 16:57 97 03/06/21 16:52 98 03/06/21 16:47 96 03/06/21 16:42 98 03/06/21 16:37 98 03/06/21 16:32 98 03/06/21 16:27 97 03/06/21 16:22 97 03/06/21 16:17 98 03/06/21 16:12 98 03/06/21 16:07 98 03/06/21 16:02 97 03/06/21 15:57 98 03/06/21 15:52 97 03/06/21 15:51 03/06/21 15:47 96 03/06/21 15:46 03/06/21 15:42 95 03/06/21 15:41 03/06/21 15:37 97 03/06/21 15:36 03/06/21 15:32 96 03/06/21 15:31 03/06/21 15:28 94 03/06/21 15:27 95 03/06/21 15:26 03/06/21 15:22 96 04/16/21 15:21 03/06/21 15:17 96 03/06/21 15:16 03/06/21 15:12 95 03/06/21 15:11 03/06/21 15:07 96 03/06/21 15:06 03/06/21 15:03 94 03/06/21 15:02 94 03/06/21 15:01 03/06/21 14:57 96 03/06/21 14:52 96 03/06/21 14:51 03/06/21 14:50 96 03/06/21 14:47 97 03/06/21 14:46 03/06/21 14:42 97 03/06/21 14:41 03/06/21 14:37 98 03/06/21 14:36 03/06/21 14:35 98 03/06/21 14:32 97 03/06/21 14:31 03/06/21 14:27 97 03/06/21 14:26 03/06/21 14:22 97 03/06/21 14:21 03/06/21 14:20 97 03/06/21 14:17 95 03/06/21 14:16 03/06/21 14:12 96 03/06/21 14:07 96 03/06/21 14:06 03/06/21 14:05 96 03/06/21 14:02 96 03/06/21 14:01 03/06/21 13:57 97 03/06/21 13:56 03/06/21 13:52 97 03/06/21 13:51 03/06/21 13:50 97 03/06/21 13:47 97 03/06/21 13:46 03/06/21 13:45 97 03/06/21 13:42 97 03/06/21 13:40 97 Intake and Output 03/06/21 03/07/21 03/07/21 23:59 07:59 15:59 Intake Total 50 120 Output Total 1800 Balance 50 -1680 Intake: IV 50 ANCEF/NS 1 GM/50 ML 1 gm 50 In 50 ml @ 100 mls/hr IV Q8H [facility] Rx#:[id number] Oral 120 Output: Urine 1800 Indwelling Catheter 1100 Uretheral (Ramirez) 200 Void 500 Other: Total, Intake Amount 120 Total, Output Amount 500 # Voids Void 1 - Exam Breasts: Present: normal Cardiovascular: Present: Regular rate Lungs: Present: Normal air movement Abdomen: Present: soft Uterus: Present: firm Incision: Present: normal, dry, intact - Labs Labs: Abnormal lab results 03/06/21 03/06/21 Range/Units 23:08 Unknown Hgb 8.3 L 8.0 L (10.1-14.3) gm/dl Hct 24.2 L 22.7 L (30.3-42.9) %
[2021-03-07] MEDS: FERROUS SULFATE 325 MG TAB PO SCH (10:24)
[2021-03-07] MEDS: NICOTINE 14 MG/24 HR PATCH TD SCH ×2 (11:00→12:55)
[2021-03-08] MEDS: SIMETHICONE 80 MG CHEW TAB PO PRN (00:06)
[2021-03-08] MEDS: HYDROcodone/ACETAMINOPHEN 5-325 MG TAB PO PRN ×3 (00:07→12:33)
[2021-03-08] MEDS: BUDESONIDE 0.5 MG/2 ML NEBU IH SCH ×3 (08:15→19:39)
[2021-03-08] MEDS: IBUPROFEN 800 MG TAB PO PRN ×2 (09:26→17:29)
[2021-03-08] MEDS: FERROUS SULFATE 325 MG TAB PO SCH (09:26)
[2021-03-08] MEDS: NICOTINE 14 MG/24 HR PATCH TD SCH (09:27)
--- NOTE | 2021-03-08 11:15 | Progress Note ---
Assessment and Plan - Patient Problems (1) Smoker Onset Date: ~03/04/21 Current Visit: Yes Status: Acute Plan to address problem: Pt may have cessation medications as ordered. (2) care following delivery Current Visit: Yes Status: Acute Plan to address problem: Discussed possible plan for discharge home tomorrow. Pt agreeable. Will continue routine course. Dr. Butler updated. Encouraged ambulation, breast pumping, and continued abdominal binder usage per pt comfort. (3) Parental grief over infant in intensive care unit Current Visit: Yes Status: Acute Plan to address problem: Pt desires assistance with breast pumping. Reports she doesn't feel confident. Declines help at this time and states, "I'm just too discouraged". Pt encouraged to call for help anytime. (4) Problem with transportation Current Visit: Yes Status: Acute Plan to address problem: Pt reports no transportation available to her for discharge, or to get to and from hospital for 's continued NICU stay. Case management ordered. Subjective - Subjective Date of service: 03/08/21 Principal diagnosis: PP C/S Day 2 Interval history: Pt denies dizziness, lightheadedness, or feeling faint when up to BR or ambulating. Denies QUEEN, vision changes, and RUQ pain. Patient reports: appetite normal, voiding normally, pain well controlled, flatus, ambulating normally [place]: doing well, in NICU (pt teary about routine on NICU;pt reports she desires more interaction with her baby girl), bottle feeding Objective - Vital Signs Latest vital signs: Vital Signs Temp Pulse Pulse Resp Resp BP BP 03/08/21 08:45 98.1 F 90 20 143/87 03/08/21 08:15 91 H 16 03/08/21 00:05 97.9 F 84 18 127/74 03/07/21 22:06 20 03/07/21 16:40 98.4 F 78 18 121/63 Pulse Ox 03/08/21 08:45 97 03/08/21 08:15 03/08/21 00:05 95 03/07/21 22:06 03/07/21 16:40 97 Intake and Output 03/07/21 03/08/21 03/08/21 23:59 07:59 15:59 Intake Total 120 480 240 Balance 120 480 240 Intake: Oral 120 480 240 Other: Total, Intake Amount 120 240 240 # Voids Void 1 1 1 - Exam Breasts: Present: normal Cardiovascular: Present: Regular rate Lungs: Present: Normal air movement Abdomen: Present: normal appearance, soft Uterus: Present: normal, firm, fundal height below umbilicus Extremities: Present: edema (2+ pitting edema BLE) Incision: Present: normal, dry, intact
[2021-03-09] MEDS: HYDROcodone/ACETAMINOPHEN 5-325 MG TAB PO PRN ×2 (00:11→09:07)
[2021-03-09] MEDS: IBUPROFEN 800 MG TAB PO PRN (05:35)
[2021-03-09] MEDS ORDERED: TETANUS,DIPH,PERTUSS(ACELL) VACCINE 0.5 ML SYRINGE IM ONE (06:00)
--- NOTE | 2021-03-09 07:17 | Discharge Summary ---
Providers - Providers Date of Admission: 03/04/21 10:16 Date of discharge: 03/09/21 (Pt in good condition for discharge home.) Attending physician: KENDRICK HECK 03/06/21 18:56 Consult to Case Management [CONS] Routine Services Needed at Discharge: Yard Driver Notified:: [id number] Additional Physician Instructions: Positive for opiods Primary care physician: KENDRICK HECK Hospitalization Reason for admission: observation Delivery: Procedure: repeat low transverse, other (right salpingo-oophorectomy, partial left salpingectomy) Episiotomy: none Incision: normal, dry, intact Other procedures: none complications: none Discharge diagnosis: delivery [place] baby: female Pertinent studies: Pt denies QUEEN, blurred vision, spots before her eyes, chest pain, shortness of breath, and upper abdominal pain. We discussed should any of these symptoms occur with or without her blood pressure being elevated to 160/90 or greater, she will need to call the slot operations director provider and await further instructions. Pt verbalized understanding. Hospital course: S: Pt doing well. Ambulating, voiding, and passing flatus okay. BC: partial left salpingectomy, right salpingo-oophorectomy. O: VSS. Blood pressure ranges are 114-140's/60's-80's. H/H 8.0/22.7, asymptomatic anemia from delivery. Fundus firm, minimal bleeding noted. Incision, open to air, intact, no drainage or s/sx of infection noted. A: 40 y.o. s/p rpt with lysis of adhesions, POD #3 d/t pre eclampsia. Now stable and in good condition and can be discharge home. P: Discharge home with instructions. Pt to schedule an appointment in the office in 1 week for an incision check and blood pressure check. Condition at discharge: Good Disposition: DC-01 TO HOME OR SELFCARE Plan - Discharge Medications Prescriptions: Docusate Sodium [Colace] 100 mg PO BID PRN #60 capsule PRN Reason: Constipation Ferrous Sulfate [Feosol 325 MG tab] 325 mg PO QDAY #30 tablet Ibuprofen [Motrin 800 MG tab] 800 mg PO Q6H PRN #30 tablet PRN Reason: Pain oxyCODONE /ACETAMINOPHEN [Percocet 5/325 mg] 1 tab PO Q6HR PRN #15 tablet PRN Reason: Pain - Provider Discharge Summary Activity: routine, no sex for 6 weeks, no heavy lifting 4 weeks Diet: routine Instructions: routine Additional instructions: [] Smoking cessation referral if applicable(refer to patient education folder for contact #) [] Refer to [facility]'s [facility] Booklet Call your doctor immediately for: * Fever > 100.5 * Heavy vaginal bleeding ( >1 pad per hour) * Severe persistent headache * Shortness of breath * Reddened, hot, painful area to leg or breast * Drainage or odor from incision. * Keep incision clean and dry at all times and follow doctor's instructions regarding bathing/showering. Congratulations on your baby girl! Please make an appointment in the office in 1 week for your incision check and blood pressure check. Please take all medication as prescribed. Should you have any questions or concerns , please do not hesitate to call the office at [phone]. Taking your blood pressure at home Please take your blood pressure once daily Taking your blood pressure with a cuff monitor: 1. Put the blood pressure cuff on your arm. 2. Sit with your legs uncrossed and feet flat on the ground. Make sure your arm is relaxed on a table or your kitchen table and bent at a 90 degree angle. 3. After 5-10 minutes push the button to take your blood pressure. While you are at home, if you experience a headache, blurred vision, spots before your eyes, chest pain, shortness of breath, and pain in your upper belly, and/or your blood pressure is 160/90 or greater please call the on-call provider immediately for further instructions. - Follow up plan Follow up: KENDRICK HECK MD [Primary Care Provider] - 7 Days
[2021-03-09] MEDS: NICOTINE 14 MG/24 HR PATCH TD SCH (09:06)
[2021-03-09] MEDS: FERROUS SULFATE 325 MG TAB PO SCH (09:06)
[2021-03-09] MEDS: SIMETHICONE 80 MG CHEW TAB PO PRN (09:07)
[2021-03-09 11:59] VITALS: BP 143/80
== END 2021-03-09 12:25 | disposition home or self-care (01) | DRG 785 ==
LOC: LD 10:16 → OB 03-06 17:58
PROVIDERS: ADMIT Obstetrics & Gynecology; ATTEND Obstetrics & Gynecology
PROC: 10D00Z1 Extraction of Products of Conception, Low, Open Approach (ICD-10-PCS; principal; 2021-03-06)
PROC: 0UB70ZZ Excision of Bilateral Fallopian Tubes, Open Approach (ICD-10-PCS; 2021-03-06)
PROC: 0UB00ZZ Excision of Right Ovary, Open Approach (ICD-10-PCS; 2021-03-06)
PROC: 3E0234Z Introduction of Serum, Toxoid and Vaccine into Muscle, Percutaneous Approach (ICD-10-PCS; 2021-03-09)
DX: O14.94 Unspecified pre-eclampsia, complicating childbirth (principal); O60.14X0 Preterm labor third trimester with preterm delivery third trimester, not applicable or unspecified; O34.211 Maternal care for low transverse scar from previous cesarean delivery; N73.6 Female pelvic peritoneal adhesions (postinfective); O99.892 Other specified diseases and conditions complicating childbirth; Z20.822 Contact with and (suspected) exposure to COVID-19; O99.334 Smoking (tobacco) complicating childbirth; F17.200 Nicotine dependence, unspecified, uncomplicated; O99.52 Diseases of the respiratory system complicating childbirth; J45.909 Unspecified asthma, uncomplicated; O99.62 Diseases of the digestive system complicating childbirth; K21.9 Gastro-esophageal reflux disease without esophagitis; I51.9 Heart disease, unspecified; O75.89 Other specified complications of labor and delivery; Z3A.34 34 weeks gestation of pregnancy; Z79.899 Other long term (current) drug therapy; Z37.0 Single live birth; Z30.2 Encounter for sterilization; Z23 Encounter for immunization
CPT/HCPCS: 36415; 59025; 76815; 76819; 80053; 80307; 81001; 85014; 85018; 85025; 85610; 85730; 86592; 86850; 86870; 86900; 86901; 87116; 88302; 88305; 88307; 90471; 90715; 93005; 93306; 94640; 96360; 99406; G0378; J0690; J0702; J1100; J1170; J1885; J2250; J2370; J2405; J2765; J3490; J7120; J7121; U0003

== ENCOUNTER 2021-03-10 16:07 | Inpatient (IN) | payer OTHER ==
[2021-03-10] MEDS ORDERED: LACTATED RINGERS 1,000 ML IV SCH (17:15)
[2021-03-10] MEDS ORDERED: hydrALAZINE 20 MG/1 ML INJ IV PRN (17:15)
[2021-03-10] MEDS ORDERED: ALBUTEROL 2.5 MG/3 ML NEBU IH ONE (17:21)
--- NOTE | 2021-03-10 17:25 | Emergency Department Report ---
<NINFA BEY - Last Filed: 03/10/21 17:20> ED General Adult HPI - General Chief complaint: High BP Stated complaint: REFERRED BY OBGYN Time Seen by Provider: 03/10/21 17:19 Source: patient Mode of arrival: Ambulatory Limitations: No Limitations - History of Present Illness Initial comments: 40-year-old female with past medical history of anxiety, atypical chest pain, asthma, recent assessment of eclampsia status post delivery this past Tuesday and reports a progressively worsening and swelling over the last 24 hours with associated mild shortness of breath. No fever, chills, sweats no nausea, no vomiting. Significant swelling to the lower extremities associated with soreness and discomfort with palpation and ambulation which also worsens her swelling. Reports no hemoptysis, hematemesis hematochezia. Ms. Peraza under the care of Dr. Butler REIMBURSEMENT CONSULTANT who advised her to come to emergency department with plan of direct admission to the mother-baby floor for further treatment options and management of her current eclampsia/swelling condition. Currently blood pressure 144/95 with a saturation of 90% heart rate of 93. -: Gradual Severity scale (0 -10): 7 Quality: dull Consistency: constant Improves with: none Worsens with: none Associated Symptoms: denies: confusion, chest pain, diaphoresis, malaise, nausea/vomiting, syncope, weakness Treatments Prior to Arrival: none - Related Data Home Medications Medication Instructions Recorded Confirmed Last Taken Albuterol Mdi (or & Nicu Only) 2 puff IN Q4HR PRN 02/11/21 03/05/21 02/11/21 16:30 Iron 2 tab PO DAILY 02/11/21 03/05/21 1 Day Ago ~03/04/21 Augmentin 875MG TAB 1 tab PO DAILY 03/05/21 03/05/21 1 Day Ago ~03/04/21 Vit-Fe Fumar-FA [ 1 tab PO DAILY 03/05/21 03/05/21 1 Day Ago Vitamin] ~03/04/21 Previous Rx's Medication Instructions Recorded Last Taken Type Acetaminophen/Codeine [Tylenol 1 - 2 tab PO Q6H PRN #10 tab 02/27/21 1 Day Ago Rx /Codeine # 3 tab] ~03/04/21 Ibuprofen [Motrin 800 MG tab] 800 mg PO Q6H PRN #30 tablet 03/06/21 Unknown Rx oxyCODONE /ACETAMINOPHEN [Percocet 1 tab PO Q6HR PRN #15 tablet 03/06/21 Unknown Rx 5/325 mg] Docusate Sodium [Colace] 100 mg PO BID PRN #60 capsule 03/09/21 Unknown Rx Ferrous Sulfate [Feosol 325 MG tab] 325 mg PO QDAY #30 tablet 03/09/21 Unknown Rx Allergies Allergy/AdvReac Type Severity Reaction Status Date / Time sumatriptan [From Imitrex] Allergy Severe Angioedema Verified 03/08/21 19:36 sumatriptan succinate Allergy Severe Angioedema Verified 03/08/21 19:36 [From Imitrex] ED Review of Systems Comment: All other systems reviewed and negative ED Past Medical Hx - Past Medical History Previous Medical History?: Yes Hx Hypertension: No Hx Heart Attack/AMI: Yes (Atypical chest pain-4yrs. ECHO WNL) Hx Congestive Heart Failure: No Hx Diabetes: No Hx Deep Vein Thrombosis: No Hx Liver Disease: No Hx Renal Disease: No Hx Sickle Cell Disease: No Hx Arthritis: Yes (SHOULDER) Hx Headaches / Migraines: Yes (MIGRAINES) Hx Seizures: No Hx Kidney Stones: Yes Hx Psychiatric Treatment: Yes (SOCIAL ANXIETY) Hx Asthma: Yes Hx COPD: No Hx HIV: No - Surgical History Past Surgical History?: Yes Hx Pacemaker: No Hx Internal Defibrillator: No Hx Cholecystectomy: Yes Additional Surgical History: C section x2. LEFT THUMB SURGERY. KIDNEY STONE REMOVAL - Social History Smoking Status: Current Every Day Smoker - Medications Home Medications: Home Medications Medication Instructions Recorded Confirmed Last Taken Type Albuterol Mdi (or & Nicu Only) 2 puff IN Q4HR PRN 02/11/21 03/05/21 02/11/21 16:30 History Iron 2 tab PO DAILY 02/11/21 03/05/21 1 Day Ago History ~03/04/21 Acetaminophen/Codeine [Tylenol 1 - 2 tab PO Q6H PRN #10 tab 02/27/21 03/05/21 1 Day Ago Rx /Codeine # 3 tab] ~03/04/21 Augmentin 875MG TAB 1 tab PO DAILY 03/05/21 03/05/21 1 Day Ago History ~03/04/21 Vit-Fe Fumar-FA [ 1 tab PO DAILY 03/05/21 03/05/21 1 Day Ago Hi story Vitamin] ~03/04/21 Ibuprofen [Motrin 800 MG tab] 800 mg PO Q6H PRN #30 tablet 03/06/21 Unknown Rx oxyCODONE /ACETAMINOPHEN [Percocet 1 tab PO Q6HR PRN #15 tablet 03/06/21 Unknown Rx 5/325 mg] Docusate Sodium [Colace] 100 mg PO BID PRN #60 capsule 03/09/21 Unknown Rx Ferrous Sulfate [Feosol 325 MG tab] 325 mg PO QDAY #30 tablet 03/09/21 Unknown Rx ED Physical Exam - General Limitations: No Limitations General appearance: alert, in no apparent distress, other (Speaks in full sentences but appears to be uncomfortable no significant respiratory distress) - Head Head exam: Present: atraumatic, normocephalic - Eye Eye exam: Present: normal appearance, PERRL, EOMI Pupils: Present: normal accommodation - ENT ENT exam: Present: normal exam, mucous membranes moist - Neck Neck exam: Present: normal inspection, full ROM - Respiratory Respiratory exam: Present: normal lung sounds bilaterally, wheezes (Intermittent wheeze). Absent: respiratory distress, rales, rhonchi, chest wall tenderness, accessory muscle use - Cardiovascular Cardiovascular Exam: Present: regular rate, normal rhythm. Absent: bradycardia, tachycardia, systolic murmur, diastolic murmur, rubs, gallop - GI/Abdominal GI/Abdominal exam: Present: soft, normal bowel sounds. Absent: distended, tenderness, guarding, hypoactive bowel sounds, organomegaly, mass, pulsatile mass - Extremities Exam Extremities exam: Present: normal inspection, normal capillary refill, pedal edema (Bilateral lower extremity swelling 2+ pitting edema range from the feet up to the knees. Pulses 2+ no Homans' sign, no popliteal masses.) - Back Exam Back exam: Present: normal inspection. Absent: CVA tenderness (R), CVA tenderness (L) - Neurological Exam Neurological exam: Present: alert, oriented X3, CN II-XII intact - Psychiatric Psychiatric exam: Present: normal affect, normal mood - Skin Skin exam: Present: warm, dry, intact, normal color. Absent: rash ED Disposition Clinical Impression: hypertension Disposition: OP ADMIT IP TO THIS HOSP Condition: Stable <JUAN DIEGO HARMAN - Last Filed: 03/10/21 18:34> ED Review of Systems ROS: Stated complaint: REFERRED BY OBGYN Other details as noted in HPI ED Course Vital Signs 03/10/21 03/10/21 17:06 17:58 Temperature 98.3 F Pulse Rate 93 H Respiratory 18 18 Rate Blood Pressure 144/95 [Left] O2 Sat by Pulse 98 98 Oximetry ED Medical Decision Making - Lab Data Result diagrams: 03/10/21 17:33 - Medical Decision Making Patient admitted to inpatient REIMBURSEMENT CONSULTANT diagnosis preeclampsia, pt verbalized agreement and understanding to same, pt transport to inpatient floor at this time via Stretcher and RN .Pt currently a/o x 3, with nad at this time. Critical care attestation.: If time is entered above; I have spent that time in minutes in the direct care of this critically ill patient, excluding procedure time. ED Disposition Is pt being admited?: Yes Does the pt Need Aspirin: No
[2021-03-10] MEDS ORDERED: MAGNESIUM SULFATE 2 GM/50 ML BAG IV ONE (17:27)
--- NOTE | 2021-03-10 17:31 | Event Note ---
Date: 03/10/21 Received call from my CNM stating patient was in the ED c/o BP 160/90 at home today. This patient is known to the practice, she is POD #4 RCS with sterilization for preeclampsia. BP noted, she's admitted now for MgSO4 therapy and observation
[2021-03-10] MEDS ORDERED: MAGNESIUM SULFATE 40GM/1000ML 40 GM/1,000 ML BAG IV SCH (18:00)
[2021-03-10 18:18] LABS: Basophils % (Auto) 0.4 % (0.0-1.8); Eosinophils # (Auto) 0.2 K/mm3 (0.0-0.4); Eosinophils % (Auto) 1.5 % (0.0-4.3); Hematocrit 27.3 % (30.3-42.9); Hemoglobin 9.6 gm/dl (10.1-14.3); Lymphocytes # (Auto) 2.1 K/mm3 (1.2-5.4); Lymphocytes % (Auto) 19.2 % (13.4-35.0); Mean Corpuscular HGB Conc 35 % (30-34); Mean Corpuscular Volume 93 fl (79-97); Monocytes # (Auto) 0.8 K/mm3 (0.0-0.8); Monocytes % (Auto) 6.9 % (0.0-7.3); Platelet Count 310 K/mm3 (140-440); Red Blood Count 2.93 M/mm3 (3.65-5.03); Red Cell Distribution Width 14.2 % (13.2-15.2)
[2021-03-10 18:35] LABS: Alanine Aminotransferase 31 units/L (7-56); Albumin 3.1 g/dL (3.9-5); Blood Urea Nitrogen 15 mg/dL (7-17); Calcium 8.3 mg/dL (8.4-10.2); Hemolysis Index 5
[2021-03-10 18:42] LABS: BUN/Creatinine Ratio 21
[2021-03-10] MEDS ORDERED: KETOROLAC 30 MG/1 ML INJ IV SCH ×2 (19:00→23:00)
[2021-03-10 19:23] LABS: Alanine Aminotransferase 32 units/L (7-56); Uric Acid 4.4 mg/dL (3.5-7.6)
--- NOTE | 2021-03-10 20:05 | History and Physical Report ---
History of Present Illness Date of examination: 03/10/21 ( pre eclampsia) Date of admission: 03/10/21 17:16 Chief complaint: Elevated blood pressures at home with swelling of lower extremities. History of present illness: Patient 40 y.o. , POD #4 s/p rpt with sterilization @ 35 + wks d/t pre eclampsia. Pt had an unremarkable course and was discharged home on POD #3 after her . Blood pressures before discharge home were 110's-140's/50's-80's. She called the answering service after discharge with c/o elevated blood pressures at home of 150's/90's. At that time she did not want to come to the ER for an evaluation. Today she presented to the office after visiting with her infant in the NICU and had a c/o elevated blood pressures at home of 160's/90's and swelling in her lower extremities. She was sent to [facility] ER and was found to have an initial blood pressure of 144/95. She is being readmitted for pre eclampsia during the period. 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 .) - Obstetrical History : 3 Para: 3 Hx # Term Pregnancies: 2 Number of Pregnancies: 1 Spontaneous Abortions: 0 Induced : 0 Number of Living Children: 3 Medications and Allergies Allergies Allergy/AdvReac Type Severity Reaction Status Date / Time sumatriptan [From Imitrex] Allergy Severe Angioedema Verified 03/08/21 19:36 sumatriptan succinate Allergy Severe Angioedema Verified 03/08/21 19:36 [From Imitrex] Home Medications Medication Instructions Recorded Confirmed Last Taken Type Albuterol Mdi (or & Nicu Only) 2 puff IN Q4HR PRN 02/11/21 03/05/21 02/11/21 16:30 History Iron 2 tab PO DAILY 02/11/21 03/05/21 1 Day Ago History ~03/04/21 Acetaminophen/Codeine [Tylenol 1 - 2 tab PO Q6H PRN #10 tab 02/27/21 03/05/21 1 Day Ago Rx /Codeine # 3 tab] ~03/04/21 Augmentin 875MG TAB 1 tab PO DAILY 03/05/21 03/05/21 1 Day Ago History ~03/04/21 Vit-Fe Fumar-FA [ 1 tab PO DAILY 03/05/21 03/05/21 1 Day Ago History Vitamin] ~03/04/21 Ibuprofen [Motrin 800 MG tab] 800 mg PO Q6H PRN #30 tablet 03/06/21 Unknown Rx oxyCODONE /ACETAMINOPHEN [Percocet 1 tab PO Q6HR PRN #15 tablet 03/06/21 Unknown Rx 5/325 mg] Docusate Sodium [Colace] 100 mg PO BID PRN #60 capsule 03/09/21 Unknown Rx Ferrous Sulfate [Feosol 325 MG tab] 325 mg PO QDAY #30 tablet 03/09/21 Unknown Rx Active Meds: Active Medications Acetaminophen (Acetaminophen 500 Mg Tab) 1,000 mg PO Q6H JARRELL Stop: 03/11/21 16:01 Hydralazine HCl (Hydralazine 20 Mg/1 Ml Inj) 10 mg IV ONCE PRN PRN Reason: Hypertension Lactated Ringer's (Lactated Ringers) 1,000 mls @ 125 mls/hr IV DIRECT JARRELL Last Admin: 03/10/21 20:02 Dose: 75 mls/hr Documented by: Magnesium Sulfate (Magnesium Sulfate 40gm/1000ml) 40 gm in 1,000 mls @ 50 mls/hr IV DIRECT JARRELL Ketorolac Tromethamine (Ketorolac 30 Mg/1 Ml Inj) 30 mg IV Q6HR JARRELL Stop: 03/11/21 12:01 Review of Systems All systems: negative - Vital Signs Vital signs: Vital Signs Temp Pulse Resp BP Pulse Ox 98.3 F 93 H 18 144/95 98 03/10/21 17:06 03/10/21 17:06 03/10/21 17:06 03/10/21 17:06 03/10/21 17:06 Temp Pulse Resp BP Pulse Ox 98.3 F 84 18 134/73 97 03/10/21 17:06 03/10/21 20:01 03/10/21 17:58 03/10/21 19:51 03/10/21 20:01 Pt denies QUEEN, blurred vision, spots before her eyes, chest pain, shortness of breath, and upper abdominal pain. Of note, pt did not have on shoes when she presented to the office. When asked about why she did not have on shoes, pt stated that she can not get any shoes on d/t swelling in her feet. - Physical Exam Breasts: Positive: deferred Cardiovascular: Normal S1 Lungs: Positive: Clear to auscultation Abdomen: Positive: normal appearance, soft, normal bowel sounds, other (C- section incision open to air, intact, no drainage or s/sx of infection noted. ) Extremities: Positive: edema (+3 edema to lower extremities) Deep Tendon Reflex Grade: Normal +2 Results Result Diagrams: 03/10/21 17:33 03/10/21 17:35 Abnormal lab results 03/10/21 03/10/21 03/10/21 Range/Units 17:33 17:33 17:35 WBC 11.1 H (4.5-11.0) K/mm3 RBC 2.93 L (3.65-5.03) M/mm3 Hgb 9.6 L (10.1-14.3) gm/dl Hct 27.3 L (30.3-42.9) % MCH 33 H (28-32) pg MCHC 35 H (30-34) % Seg Neutrophils % 72.0 H (40.0-70.0) % Seg Neutrophils # 8.0 H (1.8-7.7) K/mm3 Calcium 8.3 L (8.4-10.2) mg/dL Lactate Dehydrogenase 201 H (91-180) units/L Total Protein 5.0 L (6.3-8.2) g/dL Albumin 3.1 L (3.9-5) g/dL All other labs normal. Pre eclampsia labs drawn on admission. Assessment and Plan - Patient Problems (1) Pre-eclampsia in period Onset Date: ~03/10/21 Current Visit: Yes Status: Acute Plan to address problem: Admit to labor and delivery. Drawn pre eclampsia labs. Magnesium infusion for 24 hours with magnesium levels every 6 hours. Cardiac diet. Continue to monitor for worsening s/sx of pre eclampsia.
[2021-03-10] MEDS ORDERED: HYDROcodone/ACETAMINOPHEN 5-325 MG TAB PO ONE (20:28)
[2021-03-10] MEDS ORDERED: ACETAMINOPHEN 500 MG TAB PO SCH (22:00)
[2021-03-10] MEDS ORDERED: IBUPROFEN 800 MG TAB PO PRN (23:00)
[2021-03-10] MEDS: IBUPROFEN 800 MG TAB PO SCH (23:20)
[2021-03-11] MEDS: ACETAMINOPHEN 500 MG TAB PO SCH ×3 (02:21→15:39)
[2021-03-11] MEDS: IBUPROFEN 800 MG TAB PO SCH ×2 (05:34→12:38)
--- NOTE | 2021-03-11 13:33 | Progress Note ---
Assessment and Plan - Patient Problems (1) hypertension Current Visit: Yes Status: Acute Plan to address problem: Continue Magnesium Sulfate IV for 24hour treatment, with levels drawn q6h. Monitor for SSx of worsening Preeclampsia, VS, and strict I&O's per orders Cardiac diet (2) Smoker Onset Date: ~03/04/21 Current Visit: No Status: Acute Plan to address problem: Pt to have cessation medications and counseling as ordered. Subjective - Subjective Date of service: 03/11/21 Principal diagnosis: hypertension Interval history: Pt denies QUEEN, vision changes, chest pain, and RUQ pain. Reports desire for nicotine patch as smoking cessation support. Patient reports: appetite normal, pain well controlled, other (watt draining to gravity clear, yellow urine ) [place]: doing well, in NICU Objective - Vital Signs Latest vital signs: Vital Signs Temp Pulse Resp BP BP BP Pulse Ox 03/11/21 13:31 80 95 03/11/21 13:29 81 132/79 03/11/21 13:26 86 97 03/11/21 13:21 90 96 03/11/21 13:16 85 96 03/11/21 13:11 79 94 03/11/21 13:06 79 95 03/11/21 13:01 80 95 03/11/21 12:56 83 95 03/11/21 12:51 81 96 03/11/21 12:46 78 95 03/11/21 12:41 83 97 03/11/21 12:36 98 H 97 03/11/21 12:31 89 97 03/11/21 12:29 78 139/78 03/11/21 12:26 80 96 03/11/21 12:21 88 95 03/11/21 12:16 84 96 03/11/21 12:11 85 97 03/11/21 12:06 81 94 03/11/21 12:01 80 95 03/11/21 11:56 84 97 03/11/21 11:51 83 95 03/11/21 11:46 93 H 95 03/11/21 11:41 89 94 03/11/21 11:36 96 H 94 03/11/21 11:31 70 95 03/11/21 11:29 71 131/78 03/11/21 11:26 74 95 03/11/21 11:21 74 96 03/11/21 11:16 74 95 21/21 11:11 71 94 21/21 11:06 74 96 03/11/21 11:01 72 96 03/11/21 10:56 81 96 21/21 10:51 75 89 21/21 10:50 76 90 21/21 10:46 68 97 21/21 10:43 88 89 21/21 10:41 66 93 21/21 10:38 81 88 03/11/21 10:36 66 97 03/11/21 10:31 71 91 21/21 10:29 71 133/80 0421/21 10:28 75 91 03/11/21 10:26 72 95 03/11/21 10:21 76 93 03/11/21 10:16 72 95 03/11/21 10:11 75 95 03/11/21 10:06 75 95 03/11/21 10:01 72 96 03/11/ 09:56 76 96 03/11/21 09:51 73 95 21 09:46 74 95 03/11/21 09:41 75 96 03/11/21 09:36 73 96 03/11/21 09:31 76 96 21 09:26 95 H 98 03/11/21 09:21 86 98 03/11/21 09:16 93 H 97 03/11/21 09:11 85 97 03/11/21 09:06 94 H 94 03/11/21 09:01 81 96 03/11/21 08:56 71 94 03/11/21 08:53 70 91 03/11/21 08:51 68 90 03/11/21 08:48 69 90 21/21 08:46 71 97 03/11/21 08:42 71 88 03/11/21 08:41 70 93 03/11/21 08:36 69 97 03/11/21 08:31 75 97 21/21 08:30 77 86 0421/21 08:29 78 138/73 0421/21 08:26 75 93 21/21 08:21 75 93 21/21 08:16 76 94 03/11/21 08:11 76 94 03/11/21 08:06 75 94 21 08:01 76 94 03/11/21 07:56 73 94 03/11/21 07:51 72 94 03/11/21 07:46 73 94 03/11/21 07:41 71 96 03/11/21 07:36 74 96 03/11/21 07:31 81 97 03/11/21 07:30 85 145/68 03/11/21 07:26 78 96 03/11/21 07:21 73 97 03/11/21 07:16 96 H 96 03/11/21 07:11 82 97 03/11/21 07:09 84 89 03/11/21 07:06 73 96 03/11/21 07:02 86 91 03/11/21 07:01 64 95 03/11/21 06:56 66 93 03/11/21 06:54 82 90 03/11/21 06:51 69 93 03/11/21 06:48 82 90 03/11/21 06:46 71 95 03/11/21 06:42 74 91 03/11/21 06:41 69 97 03/11/21 06:36 60 93 03/11/21 06:34 76 91 03/11/21 06:31 72 95 03/11/21 06:29 66 18 151/72 151/72 96 03/11/21 06:26 69 96 03/11/21 06:23 72 91 03/11/21 06:21 64 92 03/11/21 06:17 77 90 03/11/21 06:16 72 93 03/11/21 06:11 63 97 03/11/21 06:06 75 92 03/11/21 06:04 73 87 03/11/21 06:01 73 96 03/11/21 05:56 68 95 03/11/21 05:51 72 95 03/11/21 05:46 83 96 03/11/21 05:41 91 H 96 03/11/21 05:36 84 96 03/11/21 05:31 74 94 03/11/21 05:29 70 137/73 03/11/21 05:26 78 94 03/11/21 05:21 72 94 03/11/21 05:16 79 93 03/11/21 05:11 79 93 03/11/21 05:06 73 94 03/11/21 05:01 81 94 03/11/21 04:56 79 93 0421/21 04:51 77 93 03/11/21 04:46 78 93 03/11/21 04:41 74 93 03/11/21 04:36 74 94 03/11/21 04:31 75 94 03/11/21 04:29 72 18 135/76 135/76 95 03/11/21 04:26 75 95 03/11/21 04:21 72 94 03/11/21 04:17 79 91 03/11/21 04:16 68 95 03/11/21 04:11 76 96 03/11/21 04:06 75 95 03/11/21 04:05 75 91 03/11/21 04:01 73 95 03/11/21 03:56 81 90 03/11/21 03:51 77 93 03/11/21 03:50 80 90 03/11/21 03:46 69 95 03/11/21 03:42 78 90 03/11/21 03:41 61 95 03/11/21 03:36 75 88 03/11/21 03:31 71 95 03/11/21 03:30 77 91 03/11/21 03:29 75 18 136/75 136/75 94 03/11/21 03:26 71 90 03/11/21 03:25 78 91 03/11/21 03:21 75 95 03/11/21 03:18 71 91 03/11/21 03:16 68 94 03/11/21 03:13 68 91 03/11/21 03:11 62 94 03/11/21 03:06 73 94 03/11/21 03:01 79 95 03/11/21 02:56 87 96 03/11/21 02:51 76 96 03/11/21 02:46 75 96 03/11/21 02:41 79 96 03/11/21 02:36 74 95 03/11/21 02:31 80 95 03/11/21 02:29 76 18 128/81 128/81 97 03/11/21 02:26 85 97 03/11/21 02:21 83 95 03/11/21 02:16 89 96 03/11/21 02:13 79 91 03/11/21 02:11 75 95 03/11/21 02:06 73 94 03/11/21 02:01 85 95 03/11/21 01:56 74 94 04/21/21 01:51 74 94 03/11/21 01:46 74 94 03/11/21 01:41 85 94 03/11/21 01:36 72 94 03/11/21 01:31 75 94 03/11/21 01:29 73 18 130/74 130/74 94 03/11/21 01:26 75 94 03/11/21 01:21 74 94 03/11/21 01:16 73 94 03/11/21 01:11 74 93 03/11/21 01:06 76 94 03/11/21 01:01 75 94 03/11/21 00:56 76 94 03/11/21 00:51 75 94 03/11/21 00:46 77 94 03/11/21 00:41 76 94 03/11/21 00:36 91 H 95 03/11/21 00:31 95 H 94 03/11/21 00:29 66 140/77 03/11/21 00:26 71 95 03/11/21 00:22 94 H 82 L 03/11/21 00:21 77 91 03/11/21 00:20 18 03/11/21 00:16 88 87 03/11/21 00:11 79 93 03/11/21 00:06 82 93 03/11/21 00:01 91 H 95 03/10/21 23:56 94 H 94 03/10/21 23:51 80 94 03/10/21 23:46 80 94 03/10/21 23:41 89 93 03/10/21 23:36 82 93 03/10/21 23:31 84 95 03/10/21 23:29 98.6 F 82 18 134/70 134/70 95 2021 23:26 81 94 20 23:21 83 94 2021 23:16 81 93 20 23:11 80 94 20 23:06 94 H 93 03/10/21 23:01 88 95 21 22:56 78 94 2021 22:51 80 94 2021 22:50 83 91 2021 22:46 84 94 2021 22:41 81 94 2021 22:36 90 94 20 22:31 81 95 04/20/21 22:29 81 141/68 04/20/21 22:26 88 96 04/20/21 22:21 78 95 04/20/21 22:16 80 95 04/20/21 22:11 78 95 04/20/21 22:09 81 135/75 04/20/21 22:06 82 95 04/20/21 22:01 83 96 04/20/21 21:56 81 96 04/20/21 21:51 86 96 04/20/21 21:46 78 95 04/20/21 21:41 92 H 95 04/20/21 21:36 94 H 94 04/20/21 21:31 95 H 93 04/20/21 21:26 95 H 93 04/20/21 21:21 80 94 04/20/21 21:17 18 04/20/21 21:16 77 94 04/20/21 21:11 84 95 04/20/21 21:10 79 94 04/20/21 21:06 81 93 04/20/21 21:04 89 94 04/20/21 21:01 81 93 04/20/21 20:56 81 93 04/20/21 20:51 79 94 04/20/21 20:46 80 94 04/20/21 20:45 77 94 04/20/21 20:41 81 95 04/20/21 20:40 81 94 04/20/21 20:36 88 95 04/20/21 20:31 81 95 04/20/21 20:29 76 132/71 04/20/21 20:26 88 96 04/20/21 20:24 75 135/81 04/20/21 20:21 85 96 04/20/21 20:19 77 131/83 04/20/21 20:18 86 94 04/20/21 20:16 86 95 04/20/21 20:14 74 132/78 04/20/21 20:11 108 H 95 04/20/21 20:09 85 149/85 04/20/21 20:06 90 98 04/20/21 20:04 84 141/83 04/20/21 20:01 84 97 04/20/21 19:56 85 97 04/20/21 19:51 85 134/73 96 04/20/21 19:50 98.8 F 89 18 134/73 97 04/20/21 19:46 87 96 03/10/21 17:58 18 98 03/10/21 17:06 98.3 F 93 H 18 144/95 98 Intake and Output 03/10/21 03/11/21 03/11/21 23:59 07:59 15:59 Intake Total 300 700 Output Total 1000 2600 1000 Balance -700 -1900 -1000 Intake: Oral 300 700 Output: Urine 1000 2600 1000 Indwelling Catheter 300 1300 1000 Uretheral (Watt) 700 1300 Other: Total, Intake Amount 200 100 Total, Output Amount 200 200 500 Weight 185 lb - Exam Breasts: Present: deferred Cardiovascular: Present: Regular rate Lungs: Present: Normal air movement Abdomen: Present: soft Extremities: Present: edema (pitting BLE) - Labs Labs: Abnormal lab results 03/10/21 03/10/21 03/10/21 Range/Units 17:33 17:33 17:35 WBC 11.1 H (4.5-11.0) K/mm3 RBC 2.93 L (3.65-5.03) M/mm3 Hgb 9.6 L (10.1-14.3) gm/dl Hct 27.3 L (30.3-42.9) % MCH 33 H (28-32) pg MCHC 35 H (30-34) % Seg Neutrophils % 72.0 H (40.0-70.0) % Seg Neutrophils # 8.0 H (1.8-7.7) K/mm3 Calcium 8.3 L (8.4-10.2) mg/dL Magnesium (1.7-2.3) mg/dL Lactate Dehydrogenase 201 H (91-180) units/L Total Protein 5.0 L (6.3-8.2) g/dL Albumin 3.1 L (3.9-5) g/dL 03/10/21 03/11/21 Range/Units 22:37 05:46 WBC (4.5-11.0) K/mm3 RBC (3.65-5.03) M/mm3 Hgb (10.1-14.3) gm/dl Hct (30.3-42.9) % MCH (28-32) pg MCHC (30-34) % Seg Neutrophils % (40.0-70.0) % Seg Neutrophils # (1.8-7.7) K/mm3 Calcium (8.4-10.2) mg/dL Magnesium 3.50 H 4.60 H (1.7-2.3) mg/dL Lactate Dehydrogenase (91-180) units/L Total Protein (6.3-8.2) g/dL Albumin (3.9-5) g/dL
[2021-03-11] MEDS: NICOTINE 14 MG/24 HR PATCH TD SCH (15:41)
[2021-03-12] MEDS: IBUPROFEN 800 MG TAB PO SCH (00:35)
--- NOTE | 2021-03-12 08:22 | Progress Note ---
Assessment and Plan pt resting, using breast pump to collect milk for infant in NICU. Pt c/o "feeling full of fluid." 2+ pitting edema BLE, trace edema in hands. Pt has hx chronic bronchitis and asthma, will get rt treatment and chest x-ray. Will also start labetalol 200mg PO for htn maintenance. Encouraged patient to ambulate and use ISS 5x/hr. - Patient Problems (1) Pre-eclampsia in period Onset Date: ~03/10/21 Current Visit: Yes Status: Acute (2) Smoker Onset Date: ~03/04/21 Current Visit: No Status: Acute Subjective - Subjective Date of service: 03/12/21 Principal diagnosis: hypertension readmit Patient reports: appetite normal, voiding normally, flatus, ambulating normally, other (edema), no nauseated Objective - Vital Signs Latest vital signs: Vital Signs Temp Pulse Resp BP BP Pulse Ox 03/12/21 05:17 98.6 F 77 18 136/84 03/12/21 04:00 98.6 F 77 18 101/78 03/11/21 22:35 98.6 F 78 20 135/75 96 03/11/21 20:31 89 98 03/11/21 20:29 84 160/91 03/11/21 20:26 91 H 96 03/11/21 20:21 89 92 03/11/21 20:16 89 97 03/11/21 20:11 89 96 03/11/21 20:06 101 H 96 03/11/21 20:01 86 97 03/11/21 19:56 91 H 97 03/11/21 19:51 89 97 03/11/21 19:46 103 H 97 03/11/21 19:41 89 96 03/11/21 19:36 90 97 03/11/21 19:31 91 H 97 03/11/21 19:29 87 167/89 03/11/21 19:26 89 97 03/11/21 19:21 92 H 96 03/11/21 19:16 92 H 97 03/11/21 19:15 98.0 F 03/11/21 19:11 81 98 03/11/21 19:06 89 97 03/11/21 19:01 92 H 98 03/11/21 18:56 86 96 03/11/21 18:51 87 98 03/11/21 18:46 82 97 03/11/21 18:41 81 97 03/11/21 18:36 73 96 03/11/21 18:31 85 97 03/11/21 18:29 81 141/75 03/11/21 18:26 80 97 03/11/21 18:21 84 97 03/11/21 18:16 80 95 03/11/21 18:11 78 96 03/11/21 18:06 84 98 03/11/21 18:01 77 96 03/11/21 17:56 75 97 03/11/21 17:51 80 96 03/11/21 17:46 84 97 03/11/21 17:41 76 96 03/11/21 17:36 74 97 03/11/21 17:31 86 98 03/11/21 17:29 83 149/89 03/11/21 17:26 91 H 98 03/11/21 17:21 89 96 03/11/21 17:18 95 H 91 03/11/21 17:16 87 97 03/11/21 17:11 85 98 03/11/21 17:06 85 97 03/11/21 17:01 85 97 03/11/21 16:56 90 97 03/11/21 16:51 87 98 03/11/21 16:46 87 97 03/11/21 16:41 87 97 03/11/21 16:36 87 98 03/11/21 16:31 98 H 96 03/11/21 16:29 86 121/93 03/11/21 16:26 86 94 03/11/21 16:21 79 95 03/11/21 16:16 80 95 03/11/21 16:11 76 95 03/11/21 16:06 74 95 03/11/21 16:01 75 95 03/11/21 15:56 78 95 03/11/21 15:51 79 96 03/11/21 15:46 80 96 03/11/21 15:41 92 H 95 03/11/21 15:36 84 97 03/11/21 15:31 81 95 03/11/21 15:29 78 138/79 03/11/21 15:26 84 96 03/11/21 15:21 82 96 03/11/21 15:16 83 97 03/11/21 15:11 85 96 03/11/21 15:06 88 97 03/11/21 15:01 88 94 03/11/21 14:56 83 96 03/11/21 14:51 79 97 03/11/21 14:50 84 90 03/11/21 14:46 82 96 03/11/21 14:41 77 97 03/11/21 14:36 80 96 03/11/21 14:31 83 96 03/11/21 14:29 83 133/84 03/11/21 14:26 89 97 03/11/21 14:21 86 93 03/11/21 14:16 81 95 03/11/21 14:11 92 H 94 03/11/21 14:06 90 96 03/11/21 14:01 92 H 95 03/11/21 13:56 75 95 03/11/21 13:53 78 88 03/11/21 13:51 79 93 03/11/21 13:46 79 95 03/11/21 13:41 80 94 03/11/21 13:36 81 94 03/11/21 13:31 80 95 03/11/21 13:29 81 132/79 03/11/21 13:26 86 97 03/11/21 13:21 90 96 03/11/21 13:16 85 96 03/11/21 13:11 79 94 03/11/21 13:06 79 95 03/11/21 13:01 80 95 03/11/21 12:56 83 95 03/11/21 12:51 81 96 03/11/21 12:46 78 95 03/11/21 12:41 83 97 03/11/21 12:36 98 H 97 03/11/21 12:31 89 97 03/11/21 12:29 78 139/78 03/11/21 12:26 80 96 03/11/21 12:21 88 95 03/11/21 12:16 84 96 03/11/21 12:11 85 97 03/11/21 12:06 81 94 03/11/21 12:01 80 95 03/11/21 11:56 84 97 03/11/21 11:51 83 95 03/11/21 11:46 93 H 95 03/11/21 11:41 89 94 03/11/21 11:36 96 H 94 03/11/21 11:31 70 95 03/11/21 11:29 71 131/78 03/11/21 11:26 74 95 03/11/21 11:21 74 96 03/11/21 11:16 74 95 03/11/21 11:11 71 94 03/11/21 11:06 74 96 03/11/21 11:01 72 96 03/11/21 10:56 81 96 03/11/21 10:51 75 89 03/11/21 10:50 76 90 03/11/21 10:46 68 97 03/11/21 10:43 88 89 03/11/21 10:41 66 93 03/11/21 10:38 81 88 03/11/21 10:36 66 97 03/11/21 10:31 71 91 03/11/21 10:29 71 133/80 03/11/21 10:28 75 91 03/11/21 10:26 72 95 03/11/21 10:21 76 93 03/11/21 10:16 72 95 03/11/21 10:11 75 95 03/11/21 10:06 75 95 03/11/21 10:01 72 96 03/11/21 09:56 76 96 03/11/21 09:51 73 95 03/11/21 09:46 74 95 03/11/21 09:41 75 96 03/11/21 09:36 73 96 03/11/21 09:31 76 96 03/11/21 09:26 95 H 98 03/11/21 09:21 86 98 03/11/21 09:16 93 H 97 03/11/21 09:11 85 97 03/11/21 09:06 94 H 94 03/11/21 09:01 81 96 03/11/21 08:56 71 94 03/11/21 08:53 70 91 03/11/21 08:51 68 90 03/11/21 08:48 69 90 03/11/21 08:46 71 97 03/11/21 08:42 71 88 03/11/21 08:41 70 93 03/11/21 08:36 69 97 03/11/21 08:31 75 97 03/11/21 08:30 77 86 03/11/21 08:29 78 138/73 03/11/21 08:26 75 93 03/11/21 08:21 75 93 Intake and Output 03/11/21 03/12/21 03/12/21 23:59 07:59 15:59 Intake Total 300 Output Total 2350 800 Balance -2350 -500 Intake: Intake, Free Water 300 Output: Urine 2350 800 Indwelling Catheter 2000 Uretheral (Ramirez) 350 Void 800 Other: Total, Output Amount 550 800 # Voids Void 1 - Exam Breasts: Present: normal Cardiovascular: Present: Regular rate Lungs: Present: Clear to auscultation, Normal air movement Abdomen: Present: normal appearance, soft Uterus: Present: normal, firm, fundal height below umbilicus Extremities: Present: edema (2+ pitting edema) Deep Tendon Reflex Grade: Normal +2 Incision: Present: normal, dry, intact - Labs Labs: Abnormal lab results 03/11/21 03/11/21 Range/Units 13:16 19:20 Magnesium 5.50 H 5.80 H (1.7-2.3) mg/dL
--- NOTE | 2021-03-12 09:11 | XRay Report ---
CHEST 2 VIEWS INDICATION / CLINICAL INFORMATION: chronic bronchitis, asthma, edema, pre-e. COMPARISON: 02/08/2021 FINDINGS: SUPPORT DEVICES: None. HEART / MEDIASTINUM: No significant abnormality. LUNGS / PLEURA: There are increasing interstitial markings in the lower lung zones suggesting mild ed betsy. No pneumothorax. ADDITIONAL FINDINGS: No significant additional findings. IMPRESSION: 1. There is mild increase in interstitial markings in the lower lung zones suggesting mild edema. Signer Name: Rober Arora MD Signed: 03/12/2021 9:06 AM Workstation Name: [id number]
[2021-03-12] MEDS ORDERED: ALBUTEROL 2.5 MG/3 ML NEBU IH ONE (09:20)
[2021-03-12] MEDS ORDERED: ALBUTEROL 2.5 MG/3 ML NEBU IH PRN (09:48)
[2021-03-12] MEDS: NICOTINE 14 MG/24 HR PATCH TD SCH (10:24)
[2021-03-12] MEDS: ACETAMINOPHEN 325 MG TAB PO PRN ×2 (14:56→23:31)
--- NOTE | 2021-03-12 14:57 | Event Note ---
Date: 03/12/21 pt reported feeling better post rt treatment. CXR showed mild pulmonary edema. pt request her luster repairer ([facility]) be made aware of her readmission. Dr. vaca consulted - will order cardiology consult and hospitalist consult. Hospitalist Dr. Silver called @ [phone] and informed of pt's complaints and CXR findings. Nursing aware of consults.
[2021-03-12] MEDS ORDERED: POTASSIUM CHLORIDE ER 20 MEQ TAB PO ONE (22:33)
[2021-03-12] MEDS: FUROSEMIDE 40 MG/4 ML INJ IV SCH (23:25)
--- NOTE | 2021-03-13 07:15 | Consultation ---
History of Present Illness - Reason for Consult Consult date: 03/12/21 Medical management Requesting physician: ZAHRA HORN - History of Present Illness Patient 40 y.o. , POD #4 s/p rpt with sterilization @ 35 + wks d/t pre eclampsia. Pt had an unremarkable course and was discharged home on POD #3 after her . Blood pressures before discharge home were 110's-140's/50's-80's. She called the answering service after discharge with c/o elevated blood pressures at home of 150's/90's. At that time she did not want to come to the ER for an evaluation. Today she presented to the office after visiting with her infant in the NICU and had a c/o elevated blood pressures at home of 160's/90's and swelling in her lower extremities. She was sent to [facility] ER and was found to have an initial blood pressure of 144/95. She is being readmitted for eclampsia during the period. Patient also complains of shortness of breath and orthopnea. 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 .) Family history: hypertension Medications and Allergies Allergies Allergy/AdvReac Type Severity Reaction Status Date / Time sumatriptan [From Imitrex] Allergy Severe Angioedema Verified 03/08/21 19:36 sumatriptan succinate Allergy Severe Angioedema Verified 03/08/21 19:36 [From Imitrex] Home Medications Medication Instructions Recorded Confirmed Last Taken Type Albuterol Mdi (or & Nicu Only) 2 puff IN Q4HR PRN 02/11/21 03/12/21 02/11/21 16:30 History Iron 2 tab PO DAILY 02/11/21 03/12/21 1 Day Ago History ~03/04/21 Acetaminophen/Codeine [Tylenol 1 - 2 tab PO Q6H PRN #10 tab 02/27/21 03/12/21 1 Day Ago Rx /Codeine # 3 tab] ~03/04/21 Augmentin 875MG TAB 1 tab PO DAILY 03/05/21 03/12/21 1 Day Ago History ~03/04/21 Vit-Fe Fumar-FA [ 1 tab PO DAILY 03/05/21 03/12/21 1 Day Ago History Vitamin] ~03/04/21 Ibuprofen [Motrin 800 MG tab] 800 mg PO Q6H PRN #30 tablet 03/06/21 03/12/21 Unknown Rx oxyCODONE /ACETAMINOPHEN [Percocet 1 tab PO Q6HR PRN #15 tablet 03/06/21 03/12/21 Unknown Rx 5/325 mg] Docusate Sodium [Colace] 100 mg PO BID PRN #60 capsule 03/09/21 03/12/21 Unknown Rx Ferrous Sulfate [Feosol 325 MG tab] 325 mg PO QDAY #30 tablet 03/09/21 03/12/21 Unknown Rx labetaloL [Labetalol 200mg TAB] 200 mg PO BID #60 tablet 03/12/21 Unknown Rx Active Meds: Active Medications Acetaminophen (Acetaminophen 325 Mg Tab) 650 mg PO Q6H PRN PRN Reason: Pain, Mild (1-3) Last Admin: 03/12/21 23:31 Dose: 650 mg Documented by: Albuterol (Albuterol 2.5 Mg/3 Ml Nebu) 2.5 mg IH Q4HRT PRN PRN Reason: Shortness Of Breath Last Admin: 03/12/21 22:33 Dose: 2.5 mg Documented by: Furosemide (Furosemide 40 Mg/4 Ml Inj) 40 mg IV Q24H [facility] Last Admin: 03/12/21 23:25 Dose: 40 mg Documented by: Hydralazine HCl (Hydralazine 20 Mg/1 Ml Inj) 10 mg IV ONCE PRN PRN Reason: Hypertension Lactated Ringer's (Lactated Ringers) 1,000 mls @ 125 mls/hr IV DIRECT [facility] Last Admin: 03/10/21 20:02 Dose: 75 mls/hr Documented by: Magnesium Sulfate (Magnesium Sulfate 40gm/1000ml) 40 gm in 1,000 mls @ 50 mls/hr IV DIRECT [facility] Last Admin: 03/10/21 20:30 Dose: 2 gm/hr, 50 mls/hr Documented by: Labetalol HCl (Labetalol 200 Mg Tab) 200 mg PO BID [facility] Last Admin: 03/12/21 10:24 Dose: 200 mg Documented by: Nicotine (Nicotine 14 Mg/24 Hr Patch) 14 mg TD QDAY [facility] Last Admin: 03/12/21 10:24 Dose: 14 mg Documented by: Review of Systems All systems: negative Cardiovascular: orthopnea, shortness of breath, dyspnea on exertion Exam - Constitutional Vitals: Temp Pulse Resp BP Pulse Ox 98.1 F 76 14 126/57 98 03/13/21 03:42 03/13/21 03:42 03/13/21 03:42 03/13/21 03:42 03/13/21 03:42 General appearance: Present: no acute distress, well-nourished - EENT Eyes: Present: PERRL ENT: hearing intact, clear oral mucosa - Neck Neck: Present: supple, normal ROM - Respiratory Respiratory effort: normal Respiratory: bilateral: CTA - Cardiovascular Heart rate: 78 Rhythm: regular Heart Sounds: Present: S1 & S2. Absent: rub, click - Extremities Extremities: pulses symmetrical, No edema Peripheral Pulses: within normal limits - Abdominal General gastrointestinal: Present: soft, non-tender, non-distended, normal bowel sounds Female genitourinary: Present: normal - Integumentary Integumentary: Present: clear, warm, dry - Musculoskeletal Musculoskeletal: gait normal, strength equal bilaterally - Psychiatric Psychiatric: appropriate mood/affect, intact judgment & insight - Neurologic Neurologic: CNII-XII intact, moves all extremities - Allied Health Allied health notes reviewed: nursing, case management HEART Score - HEART Score History: Slightly suspicious EKG: Normal Age: < 45 Troponin: < normal limit Results - Labs CBC & Chem 7: 03/10/21 17:33 03/10/21 17:35 Assessment and Plan - Patient Problems (1) Pre-eclampsia in period Onset Date: ~03/10/21 Current Visit: Yes Status: Acute Plan to address problem: Patient on IV magnesium sulfate Patient initiated on labetalol Blood pressure under control now (2) New onset of congestive heart failure Current Visit: Yes Status: Acute Plan to address problem: High possibility because of the pulmonary vascular congestion 1 dose of IV Lasix now Cardiology consult requested Echocardiogram requested for ejection fraction (3) DVT prophylaxis Current Visit: Yes Status: Acute Plan to address problem: On heparin and GI prophylaxis
--- NOTE | 2021-03-13 08:05 | Progress Note ---
Assessment and Plan A: 40 y.o. s/p rpt with sterilization d/t elevated blood pressures and proteinuria, POD #7. S/p magnesium infusion d/t pre eclampsia, stable blood pressures. Now with new onset congestive heart failure P: S/p Internal medicine consult. IV Lasix q 24 hours. Continue with Labetalol BID. Awaiting cardiology consult and recommendations. Echo ordered for today. Subjective - Subjective Date of service: 03/13/21 (Pt doing well. ) Principal diagnosis: pre eclampsia, new onset CHF Patient reports: appetite normal, voiding normally, pain well controlled, flatus, ambulating normally : doing well, in NICU Objective - Vital Signs Latest vital signs: Vital Signs Temp Pulse Pulse Resp Resp BP BP 03/13/21 03:42 98.1 F 76 14 126/57 03/13/21 00:24 98.2 F 78 14 132/74 03/12/21 22:34 90 20 125/59 03/12/21 22:33 84 18 03/12/21 20:40 98.6 F 87 18 148/73 03/12/21 10:24 91 H 135/79 03/12/21 09:35 98.4 F 95 H 18 136/84 03/12/21 09:30 92 H 16 Pulse Ox 03/13/21 03:42 98 03/13/21 00:24 97 03/12/21 22:34 98 03/12/21 22:33 03/12/21 20:40 98 03/12/21 10:24 03/12/21 09:35 98 03/12/21 09:30 Intake and Output 03/12/21 03/13/21 03/13/21 22:59 06:59 14:59 Intake Total 240 240 Output Total 1300 Balance 240 -1060 Intake: Oral 240 240 Output: Urine 1300 Void 1300 Other: Total, Intake Amount 240 120 Total, Output Amount 400 # Voids Void 1 - Exam Narrative Exam: Pt denies QUEEN, blurred vision, spots before her eyes, chest pain, shortness of breath, and upper abdominal pain. We discussed if these symptoms occur she should tell the RN immediately. Was seen by internal medicine and still awaiting cardiology consult/recommendations. Breasts: Present: deferred Cardiovascular: Present: Normal S1, Normal S2 Lungs: Present: Clear to auscultation Abdomen: Present: normal appearance, soft, normal bowel sounds Uterus: Present: normal Extremities: Present: edema Deep Tendon Reflex Grade: Normal +2 Incision: Present: normal, dry, intact, other (No s/sx of infection and no drainage noted. )
[2021-03-13] MEDS: NICOTINE 14 MG/24 HR PATCH TD SCH (10:44)
--- NOTE | 2021-03-13 12:23 | Consultation ---
History of Present Illness Consult date: 03/13/21 Consult reason: congestive heart failure History of present illness: This is a 40-year old woman who was admitted a week ago with proteinuria, pr eeclampsia late in her resulting in delivery by a week ago. Work-up with an chocardiogram showed normal left ventricular systolic function, with no significant valvular lesions. She returns to the emergency department less than 24 hours after discharge with report of elevated blood pressure, 160/90, on home monitor, admitted with hypertension in the period. Chest x-ray read by the radiologist reports mild edema. Since admission, blood pressure ranging in the 130-140s systolic. This is managed with Labetalol 200 mg twice daily. 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 .) Family history: hypertension Medications and Allergies Allergies Allergy/AdvReac Type Severity Reaction Status Date / Time sumatriptan [From Imitrex] Allergy Severe Angioedema Verified 03/08/21 19:36 sumatriptan succinate Allergy Severe Angioedema Verified 03/08/21 19:36 [From Imitrex] Home Medications Medication Instructions Recorded Confirmed Last Taken Type Albuterol Mdi (or & Nicu Only) 2 puff IN Q4HR PRN 02/11/21 03/12/21 02/11/21 16 :30 History Iron 2 tab PO DAILY 02/11/21 03/12/21 1 Day Ago History ~03/04/21 Acetaminophen/Codeine [Tylenol 1 - 2 tab PO Q6H PRN #10 tab 02/27/21 03/12/21 1 Day Ago Rx /Codeine # 3 tab] ~03/04/21 Augmentin 875MG TAB 1 tab PO DAILY 03/05/21 03/12/21 1 Day Ago History ~03/04/21 Vit-Fe Fumar-FA [ 1 tab PO DAILY 03/05/21 03/12/21 1 Day Ago History Vitamin] ~03/04/21 Ibuprofen [Motrin 800 MG tab] 800 mg PO Q6H PRN #30 tablet 03/06/21 03/12/21 Unknown Rx oxyCODONE /ACETAMINOPHEN [Percocet 1 tab PO Q6HR PRN #15 tablet 03/06/21 03/12/21 Unknown Rx 5/325 mg] Docusate Sodium [Colace] 100 mg PO BID PRN #60 capsule 03/09/21 03/12/21 Unknown Rx Ferrous Sulfate [Feosol 325 MG tab] 325 mg PO QDAY #30 tablet 03/09/21 03/12/21 Unknown Rx labetaloL [Labetalol 200mg TAB] 200 mg PO BID #60 tablet 03/12/21 Unknown Rx Active Meds: Active Medications Acetaminophen (Acetaminophen 325 Mg Tab) 650 mg PO Q6H PRN PRN Reason: Pain, Mild (1-3) Last Admin: 03/12/21 23:31 Dose: 650 mg Documented by: Albuterol (Albuterol 2.5 Mg/3 Ml Nebu) 2.5 mg IH Q4HRT PRN PRN Reason: Shortness Of Breath Last Admin: 03/12/21 22:33 Dose: 2.5 mg Documented by: Furosemide (Furosemide 40 Mg/4 Ml Inj) 40 mg IV Q24H [facility] Last Admin: 03/12/21 23:25 Dose: 40 mg Documented by: Hydralazine HCl (Hydralazine 20 Mg/1 Ml Inj) 10 mg IV ONCE PRN PRN Reason: Hypertension Lactated Ringer's (Lactated Ringers) 1,000 mls @ 125 mls/hr IV DIRECT [facility] Last Admin: 03/10/21 20:02 Dose: 75 mls/hr Documented by: Magnesium Sulfate (Magnesium Sulfate 40gm/1000ml) 40 gm in 1,000 mls @ 50 mls/hr IV DIRECT [facility] Last Admin: 03/10/21 20:30 Dose: 2 gm/hr, 50 mls/hr Documented by: Labetalol HCl (Labetalol 200 Mg Tab) 200 mg PO BID [facility] Last Admin: 03/13/21 10:42 Dose: 200 mg Documented by: Nicotine (Nicotine 14 Mg/24 Hr Patch) 14 mg TD QDAY [facility] Last Admin: 03/13/21 10:44 Dose: 14 mg Documented by: Physical Examination Vital Signs Temp Pulse Resp BP Pulse Ox 98.3 F 93 H 18 144/95 98 03/10/21 17:06 03/10/21 17:06 03/10/21 17:06 03/10/21 17:06 03/10/21 17:06 Results 03/10/21 17:33 03/10/21 17:35 Assessment and Plan - Patient Problems (1) hypertension Current Visit: Yes Status: Acute Plan to address problem: Patient admitted with hypertension in the period. Past cardiac history is unremarkable. Four years ago, she was evaluated for atypical chest pain with a dobutamine echocardiogram test that was reported negative. There is no history of coronary artery disease, documented myocardial infarction, significant cardiac arrhythmias or left ventricular dysfunction. Serial echocardiograms from 2014, until most recently 3 months ago have documented normal left ventricular systolic function and no significant valvular lesions. An echocardiogram a week ago showed normal left ventricular systolic function, with no significant valvular lesions. Conservative cardiac management.
--- NOTE | 2021-03-13 19:37 | Progress Note ---
Assessment and Plan Assessment and plan: COVID-19 test negative --Pre-eclampsia in period Onset Date: ~03/10/21 Current Visit: Yes Status: Acute Management per [employer] Patient initiated on labetalol Blood pressure well controlled Continue supportive care --? New onset of CHF/no evidence of CHF per cardiology EF 55% Current Visit: Yes Status: Acute Cardiology feels per patient's fluid overload is due to edema due to preeclampsia Proteinuria and hypertension, recent echocardiogram did not reveal any congestive heart failure EF 55 percent Recommend diuretics fluid and salt restriction Patient requests Lasix to be given during daytime rather than midnight at 23:00hrs Changed Lasix 40 mg IV daily at 10 AM -- DVT prophylaxis Current Visit: Yes Status: Acute Plan to address problem: On heparin and Protonix for GI prophylaxis We will closely monitor the patient and adjust management as needed Cardiology evaluation recommendations noted and appreciated Plan of care reviewed with the patient ,family member at the bedside and her nurse History Interval history: I have seen and examined the patient at the bedside this evening Patient's chart and medications reviewed Patient feels better bilateral leg swelling slightly improved still has edema Cardiology evaluation recommendations noted and appreciated Vital signs noted Hospitalist Physical - Constitutional Vitals: Temp Pulse Resp BP Pulse Ox 98.0 F 84 18 143/87 98 03/13/21 16:44 03/13/21 16:44 03/13/21 16:44 03/13/21 16:44 03/13/21 16:44 General appearance: Present: no acute distress, well-nourished - EENT Eyes: Present: PERRL, EOM intact - Neck Neck: Present: supple, normal ROM - Respiratory Respiratory effort: normal Respiratory: bilateral: diminished, rales, negative: rhonchi, wheezing - Cardiovascular Rhythm: regular Heart Sounds: Present: S1 & S2 - Extremities Extremities: no ischemia Extremity abnormal: edema - Abdominal General gastrointestinal: soft, non-tender, non-distended, normal bowel sounds - Integumentary Integumentary: Present: clear, warm - Psychiatric Psychiatric: appropriate mood/affect, cooperative - Neurologic Neurologic: CNII-XII intact, moves all extremities HEART Score - HEART Score EKG: Normal Age: < 45 Troponin: < normal limit Results - Labs CBC & Chem 7: 03/10/21 17:33 03/10/21 17:35 Labs: Laboratory Last Values WBC 11.1 K/mm3 (4.5-11.0) H 03/10/21 17: RBC 2.93 M/mm3 (3.65-5.03) L 03/10/21 17: Hgb 9.6 gm/dl (10.1-14.3) L 03/10/21 17:33 Hct 27.3 % (30.3-42.9) L 03/10/21 17: MCV 93 fl (79-97) 03/10/21 17: MCH 33 pg (28-32) H 03/10/21 17: MCHC 35 % (30-34) H 03/10/21: RDW 14.2 % (13.2-15.2) 03/10/21: Plt Count 310 K/mm3 (140-440) 03/10/21 17: Lymph % (Auto) 19.2 % (13.4-35.0) 03/10/21: [place] % (Auto) 6.9 % (0.0-7.3) 03/10/21 17: Eos % (Auto) 1.5 % (0.0-4.3) 03/10/21 17: Baso % (Auto) 0.4 % (0.0-1.8) 03/10/21: Lymph # (Auto) 2.1 K/mm3 (1.2-5.4) 03/10/21 17:33 [place] # (Auto) 0.8 K/mm3 (0.0-0.8) 03/10/21: Eos # (Auto) 0.2 K/mm3 (0.0-0.4) 03/10/21 17: Baso # (Auto) 0.0 K/mm3 (0.0-0.1) 03/10/21: Seg Neutrophils % 72.0 % (40.0-70.0) H 03/10/21: Seg Neutrophils # 8.0 K/mm3 (1.8-7.7) H 03/10/21 17:33 Sodium 140 mmol/L (137-145) 03/10/21 17: Potassium 4.0 mmol/L (3.6-5.0) 03/10/21 17:33 Chloride 104.8 mmol/L (98-107) 03/10/21 17:33 Carbon Dioxide 26 mmol/L (22-30) 03/10/21 17:33 Anion Gap 13 mmol/L 03/10/21 17:33 BUN 15 mg/dL (7-17) 03/10/21 17:33 Creatinine 0.7 mg/dL (0.6-1.2) 03/10/21 17:35 Estimated GFR > 60 ml/min 03/10/21 17:35 BUN/Creatinine Ratio 21 % 03/10/21 17:33 Glucose 83 mg/dL (65-100) 03/10/21 17:33 Lactic Acid 1.50 mmol/L (0.7-2.0) 03/10/21 17:33 Uric Acid 4.4 mg/dL (3.5-7.6) 03/10/21 17:35 Calcium 8.3 mg/dL (8.4-10.2) L 03/10/21 17:33 Magnesium 5.80 mg/dL (1.7-2.3) H 03/11/21 19:20 Total Bilirubin 0.20 mg/dL (0.1-1.2) 03/10/21 17:33 AST 35 units/L (5-40) 03/10/21 17:35 ALT 32 units/L (7-56) 03/10/21 17:35 Alkaline Phosphatase 63 units/L (35-129) 03/10/21 17:33 Lactate Dehydrogenase 201 units/L (91-180) H 03/10/21 17:35 Total Protein 5.0 g/dL (6.3-8.2) L 03/10/21 17:33 Albumin 3.1 g/dL (3.9-5) L 03/10/21 17:33 Albumin/Globulin Ratio 1.6 % 03/10/21 17:33 Coronavirus (PCR) Negative (Negative) 03/13/21 09:45 Active Medications - Current Medications Current Medications: Generic Name Dose Route Start Last Admin Trade Name Freq PRN Reason Stop Dose Admin Acetaminophen 650 mg 03/12/21 15:00 03/12/21 23:31 Acetaminophen 325 Mg Tab PO 650 mg Q6H PRN Administration Pain, Mild (1-3) Albuterol 2.5 mg 03/12/21 09:48 03/12/21 22:33 Albuterol 2.5 Mg/3 Ml Nebu IH 2.5 mg Q4HRT PRN Administration Shortness Of Breath Furosemide 40 mg 03/12/21 23:00 03/12/21 23:25 Furosemide 40 Mg/4 Ml Inj IV 40 mg Q24H [facility] Administration Hydralazine HCl 10 mg 03/10/21 17:15 Hydralazine 20 Mg/1 Ml Inj IV ONCE PRN Hypertension Lactated Ringer's 1,000 mls @ 125 mls/hr 03/10/21 17:15 03/10/21 20:02 Lactated Ringers IV 75 mls/hr DIRECT [facility] Administration Magnesium Sulfate 40 gm in 1,000 mls @ 50 mls/hr 03/10/21 18:00 03/10/21 20:30 Magnesium Sulfate 40gm/1000ml IV 2 gm/hr DIRECT [facility] 50 mls/hr Administration 2 GM/HR Labetalol HCl 200 mg 03/12/21 10:00 03/13/21 10:42 Labetalol 200 Mg Tab PO 200 mg BID [facility] Administration Nicotine 14 mg 03/11/21 14:00 03/13/21 10:44 Nicotine 14 Mg/24 Hr Patch TD 14 mg QDAY [facility] Administration
[2021-03-13] MEDS: FUROSEMIDE 40 MG/4 ML INJ IV SCH (22:16)
--- NOTE | 2021-03-13 23:38 | Event Note ---
Date: 03/13/21 (Reviewed internal medicine and cardiology notes. ) Reviewed internal medicine and cardiology note. They do not believe patient has congestive heart failure. They believe edema d/t pre eclampsia. Per RN, cardiology will come and see patient again in the AM. Echo was cancelled.
[2021-03-14 06:29] LABS: BUN/Creatinine Ratio 15; Blood Urea Nitrogen 12 mg/dL (7-17); Calcium 8.4 mg/dL (8.4-10.2); Hemolysis Index 4
--- NOTE | 2021-03-14 08:31 | Progress Note ---
Assessment and Plan A: Patient resting in bed with significant other. No complaints. Blood pressures well controlled on Labetalol. P: Continue current management. Cardiology and Medicine to see patient - Patient Problems (1) Pre-eclampsia in period Onset Date: ~03/10/21 Current Visit: Yes Status: Acute (2) Smoker Onset Date: ~03/04/21 Current Visit: No Status: Acute Subjective - Subjective Date of service: 03/14/21 Principal diagnosis: pre eclampsia Patient reports: appetite normal, voiding normally, pain well controlled, ambulating normally [place]: in NICU Objective - Vital Signs Latest vital signs: Vital Signs Temp Pulse Resp BP Pulse Ox 03/14/21 04:25 98.1 F 85 18 125/79 96 03/14/21 01:45 98.2 F 84 18 129/74 96 03/13/21 22:13 90 139/79 03/13/21 21:47 98.4 F 90 16 139/79 98 03/13/21 16:44 98.0 F 84 18 143/87 98 03/13/21 10:42 87 141/66 Intake and Output 03/13/21 03/14/21 03/14/21 23:59 07:59 15:59 Intake Total 600 360 Output Total 3 Balance 597 360 Intake: Intake, Free Water 600 360 Output: Urine 3 Void 3 Other: Total, Output Amount 3 # Voids Void 2 - Exam Breasts: Present: Cardiovascular: Present: Regular rate Lungs: Present: Normal air movement Abdomen: Present: normal appearance, soft Extremities: Present: edema
[2021-03-14] MEDS ORDERED: FUROSEMIDE 40 MG/4 ML INJ IV SCH (10:00)
[2021-03-14] MEDS: NICOTINE 14 MG/24 HR PATCH TD SCH (10:17)
[2021-03-14] MEDS: ACETAMINOPHEN 325 MG TAB PO PRN (10:28)
--- NOTE | 2021-03-14 11:05 | Progress Note ---
Assessment and Plan 40-year-old woman who had recent , presents with preeclampsia manifested by edema, proteinuria and hypertension. During her admission last week, an echocardiogram showed normal left ventricular systolic function with ejection fraction 55%. Recommend: continue optimal blood pressure management, diuretics and dietary salt restriction. BP is currently well controlled. OK to discharge from cardiac perspective with outpatient f/u with Dr Suarez in [facility] office. Subjective Date of service: 03/14/21 Principal diagnosis: pre eclampsia Interval history: No acute events per nursing staff. Pt off the unit at time of my visit. I spoke with her partner in the room. BP is well controlled. Objective Vital Signs Temp Pulse Resp BP Pulse Ox 03/14/21 10:28 16 03/14/21 10:18 87 135/71 03/14/21 08:43 97.4 F L 87 18 135/71 96 03/14/21 04:25 98.1 F 85 18 125/79 96 03/14/21 01:45 98.2 F 84 18 129/74 96 03/13/21 22:13 90 139/79 03/13/21 21:47 98.4 F 90 16 139/79 98 03/13/21 16:44 98.0 F 84 18 143/87 98 - Physical Examination Narrative exam: Patient off the unit and not examined. - Labs and Meds Comprehensive Metabolic Panel 03/14/21 Range/Units 05:32 Sodium 138 (137-145) mmol/L Potassium 4.3 (3.6-5.0) mmol/L Chloride 102.5 (98-107) mmol/L Carbon Dioxide 28 (22-30) mmol/L BUN 12 (7-17) mg/dL Creatinine 0.8 (0.6-1.2) mg/dL Glucose 77 (65-100) mg/dL Calcium 8.4 (8.4-10.2) mg/dL
--- NOTE | 2021-03-14 14:21 | Progress Note ---
Assessment and Plan Assessment and plan: COVID-19 test negative --Pre-eclampsia in period Onset Date: ~03/10/21 Current Visit: Yes Status: Acute Management per ELECTRONIC TECHNICIAN Patient initiated on labetalol Blood pressure well controlled Continue supportive care --No evidence of CHF per cardiology, EF 55% Current Visit: Yes Status: Acute Cardiology feels per patient's fluid overload is due to preeclampsia Proteinuria and hypertension, recent echocardiogram did not reveal any congestive heart failure EF 55 percent Recommend diuretics fluid and salt restriction Continue Lasix, follow with PMD and first leveler upon discharge -- DVT prophylaxis Current Visit: Yes Status: Acute Plan to address problem: On heparin and Protonix for GI prophylaxis Patient is medically stable for discharge on Lasix need to follow-up with first leveler, and primary care physician Plan of care reviewed with the patient and her partner and her nurse I will sign off Thank you for this consultation Call us with questions History Interval history: I have seen and examined the patient in her room this afternoon Patient's partner at the bedside, patient feels better no new complaints Shortness of breath and leg edema significantly improved Vital signs noted Hospitalist Physical - Constitutional Vitals: Temp Pulse Resp BP Pulse Ox 97.4 F L 87 16 135/71 96 03/14/21 08:43 03/14/21 10:18 03/14/21 10:28 03/14/21 10:18 03/14/21 08:43 General appearance: Present: no acute distress, well-nourished - EENT Eyes: Present: PERRL, EOM intact - Neck Neck: Present: supple, normal ROM - Respiratory Respiratory effort: normal Respiratory: bilateral: diminished, negative: rales, rhonchi, wheezing - Cardiovascular Rhythm: regular Heart Sounds: Present: S1 & S2 - Extremities Extremities: no ischemia Extremity abnormal: edema - Abdominal General gastrointestinal: soft, non-tender, non-distended, normal bowel sounds - Integumentary Integumentary: Present: clear, warm - Psychiatric Psychiatric: appropriate mood/affect, cooperative - Neurologic Neurologic: moves all extremities HEART Score - HEART Score EKG: Normal Age: < 45 Troponin: < normal limit Results - Labs CBC & Chem 7: 03/10/21 17:33 03/14/21 05:32 Labs: Laboratory Last Values WBC 11.1 K/mm3 (4.5-11.0) H 03/10/21 17:33 RBC 2.93 M/mm3 (3.65-5.03) L 03/10/21 17:33 Hgb 9.6 gm/dl (10.1-14.3) L 03/10/21 17:33 Hct 27.3 % (30.3-42.9) L 03/10/21 17:33 MCV 93 fl (79-97) 03/10/21 17: MCH 33 pg (28-32) H 03/10/21 17: MCHC 35 % (30-34) H 03/10/21 17:33 RDW 14.2 % (13.2-15.2) 03/10/21 17:33 Plt Count 310 K/mm3 (140-440) 03/10/21 17:33 Lymph % (Auto) 19.2 % (13.4-35.0) 03/10/21 17: [place] % (Auto) 6.9 % (0.0-7.3) 03/10/21 17: Eos % (Auto) 1.5 % (0.0-4.3) 03/10/21 17:33 Baso % (Auto) 0.4 % (0.0-1.8) 03/10/21 17:33 Lymph # (Auto) 2.1 K/mm3 (1.2-5.4) 03/10/21 17:33 [place] # (Auto) 0.8 K/mm3 (0.0-0.8) 03/10/21 17: Eos # (Auto) 0.2 K/mm3 (0.0-0.4) 03/10/21 17: Baso # (Auto) 0.0 K/mm3 (0.0-0.1) 03/10/21 17:33 Seg Neutrophils % 72.0 % (40.0-70.0) H 03/10/21 17: Seg Neutrophils # 8.0 K/mm3 (1.8-7.7) H 03/10/21 17:33 Sodium 138 mmol/L (137-145) 03/14/21 05:32 Potassium 4.3 mmol/L (3.6-5.0) 03/14/21 05:32 Chloride 102.5 mmol/L (98-107) 03/14/21 05:32 Carbon Dioxide 28 mmol/L (22-30) 03/14/21 05:32 Anion Gap 12 mmol/L 03/14/21 05:32 BUN 12 mg/dL (7-17) 03/14/21 05:32 Creatinine 0.8 mg/dL (0.6-1.2) 03/14/21 05:32 Estimated GFR > 60 ml/min 03/14/21 05:32 BUN/Creatinine Ratio 15 % 03/14/21 05:32 Glucose 77 mg/dL (65-100) 03/14/21 05:32 Lactic Acid 1.50 mmol/L (0.7-2.0) 03/10/21 17:33 Uric Acid 4.4 mg/dL (3.5-7.6) 03/10/21 17:35 Calcium 8.4 mg/dL (8.4-10.2) 03/14/21 05:32 Magnesium 5.80 mg/dL (1.7-2.3) H 03/11/21 19:20 Total Bilirubin 0.20 mg/dL (0.1-1.2) 03/10/21 17:33 AST 35 units/L (5-40) 03/10/21 17:35 ALT 32 units/L (7-56) 03/10/21 17:35 Alkaline Phosphatase 63 units/L (35-129) 03/10/21 17:33 Lactate Dehydrogenase 201 units/L (91-180) H 03/10/21 17:35 Total Protein 5.0 g/dL (6.3-8.2) L 03/10/21 17:33 Albumin 3.1 g/dL (3.9-5) L 03/10/21 17:33 Albumin/Globulin Ratio 1.6 % 03/10/21 17:33 Coronavirus (PCR) Negative (Negative) 03/13/21 09:45 Active Medications - Current Medications Current Medications: Generic Name Dose Route Start Last Admin Trade Name Freq PRN Reason Stop Dose Admin Acetaminophen 650 mg 03/12/21 15:00 03/14/21 10:28 Acetaminophen 325 Mg Tab PO 650 mg Q6H PRN Administration Pain, Mild (1-3) Albuterol 2.5 mg 03/12/21 09:48 03/12/21 22:33 Albuterol 2.5 Mg/3 Ml Nebu IH 2.5 mg Q4HRT PRN Administration Shortness Of Breath Furosemide 40 mg 03/15/21 10:00 Furosemide 40 Mg Tab PO QDAY JARRELL Hydralazine HCl 10 mg 03/10/21 17:15 Hydralazine 20 Mg/1 Ml Inj IV ONCE PRN Hypertension Lactated Ringer's 1,000 mls @ 125 mls/hr 03/10/21 17:15 03/10/21 20:02 Lactated Ringers IV 75 mls/hr DIRECT JARRELL Administration Magnesium Sulfate 40 gm in 1,000 mls @ 50 mls/hr 03/10/21 18:00 03/10/21 20:30 Magnesium Sulfate 40gm/1000ml IV 2 gm/hr DIRECT JARRELL 50 mls/hr Administration 2 GM/HR Labetalol HCl 200 mg 03/12/21 10:00 03/14/21 10:18 Labetalol 200 Mg Tab PO 200 mg BID JARRELL Administration Nicotine 14 mg 03/11/21 14:00 03/14/21 10:17 Nicotine 14 Mg/24 Hr Patch TD 14 mg QDAY JARRELL Administration
--- NOTE | 2021-03-14 15:53 | Discharge Summary ---
Providers - Providers Date of Admission: 03/10/21 17:16 Attending physician: ZAHRA HORN 03/12/21 14:49 Consult to Cardiology [CONS] [facility]ine [facility] Reason For Exam: On going care, follow up Consult to Physician [CONS] Routine Comment: called Dr. Silver @ [id number] and made him aware of order Consulting Provider: RICK INFANTE Physician Instructions: Reason For Exam: SOB, mild pulmonary edema on CXR 03/12/21 22:34 Consult to Physician [CONS] Routine Comment: Consulting Provider: NANCY CALDWELL Physician Instructions: Reason For Exam: New onset CHF Primary care physician: KENDRICK HECK Hospitalization Condition at discharge: Stable Disposition: DC-01 TO HOME OR SELFCARE Plan - Discharge Medications Prescriptions: labetaloL [Labetalol 200mg TAB] 200 mg PO BID #60 tablet Furosemide [Lasix TAB] 40 mg PO QDAY #30 tablet - Provider Discharge Summary Activity: no sex for 6 weeks, no heavy lifting 4 weeks, no strenuous exercise Diet: other (low salt) Instructions: routine Additional instructions: [] Smoking cessation referral if applicable(refer to patient education folder for contact #) [] Refer to [facility] Booklet Call your doctor immediately for: * Fever > 100.5 * Heavy vaginal bleeding ( >1 pad per hour) * Severe persistent headache * Shortness of breath * Reddened, hot, painful area to leg or breast * Drainage or odor from incision. * Keep incision clean and dry at all times and follow doctor's instructions regarding bathing/showering - Follow up plan Follow up: KENDRICK HECK MD [Primary Care Provider] - 7 Days Forms: [facility] Discharge Summary
[2021-03-14 17:23] VITALS: BP 125/76
[2021-03-15] MEDS ORDERED: FUROSEMIDE 40 MG TAB PO SCH (10:00)
== END 2021-03-14 17:49 | disposition home or self-care (01) | DRG 776 ==
LOC: ED 16:07 → LD 17:16 → OB 03-11 22:56
PROVIDERS: ADMIT Obstetrics & Gynecology; ATTEND Obstetrics & Gynecology
DX: O14.95 Unspecified pre-eclampsia, complicating the puerperium (principal); O99.355 Diseases of the nervous system complicating the puerperium; O99.345 Other mental disorders complicating the puerperium; O99.53 Diseases of the respiratory system complicating the puerperium; O99.335 Smoking (tobacco) complicating the puerperium; Z20.822 Contact with and (suspected) exposure to COVID-19; J45.909 Unspecified asthma, uncomplicated; M19.90 Unspecified osteoarthritis, unspecified site; F17.200 Nicotine dependence, unspecified, uncomplicated; Z79.899 Other long term (current) drug therapy; Z88.8 Allergy status to other drugs, medicaments and biological substances; Z90.49 Acquired absence of other specified parts of digestive tract; Z87.442 Personal history of urinary calculi; Z82.49 Family history of ischemic heart disease and other diseases of the circulatory system
CPT/HCPCS: 36415; 71046; 80048; 80053; 82140; 82565; 83615; 83735; 84450; 84460; 84550; 85025; 94640; G0378; J1940; J3475; J7120; U0003